=== PATIENT | female | born 1940 | race Caucasian/White ===

== ENCOUNTER 2019-01-14 05:56 | Day surgery (SDC) | payer MEDICARE, BC ==
[2019-01-14] MEDS ORDERED: DIPRIVAN 200 MG/20 ML IV ONE (05:57)
[2019-01-14] MEDS ORDERED: Lactated Ringers 1,000 ML IV SCH (06:30)
[2019-01-14 08:13] VITALS: O2SAT 98
[2019-01-14 08:29] VITALS: BP 115/69; PULSE 75
--- NOTE | 2019-01-14 09:25 | OP ---
SURGERY DATE/TIME: 01/14/2019 0702 PREOPERATIVE DIAGNOSIS: Screening colonoscopy. POSTOPERATIVE DIAGNOSIS: Normal colon. PROCEDURE: Colonoscopy. SURGEON: Levi Nunez M.D. ANESTHESIA: MAC. ESTIMATED BLOOD LOSS: None. SPECIMENS: None. DESCRIPTION OF PROCEDURE: After informed written consent was obtained, the patient was taken to the endoscopy suite. She underwent monitored anesthesia and digital rectal exam showed normal sphincter tone and no internal lesions. The scope was inserted into the rectum and sequentially the entire colonic mucosa was traversed. The level of cecum was reached and verified with direct visualization of ileocecal valve. There was some liquid stool present throughout some intermittent areas of the colon which was suctioned to aid in visualization. Upon withdrawal there were no obvious mucosal lesions. Prior to withdrawal retroflexion was performed and showed no internal lesions. The scope was removed and the patient was transferred to the recovery room in good condition.
== END 2019-01-14 08:40 | disposition home or self-care (01) ==
LOC: SDC 05:56
PROVIDERS: ATTEND Family Medicine
DX: Z12.11 Encounter for screening for malignant neoplasm of colon (principal)
CPT/HCPCS: 99100; J2704

== ENCOUNTER 2019-08-28 14:45 | Emergency (ER) | payer MEDICARE, BC ==
--- NOTE | 2019-08-28 15:06 | ERPHSYRPT ---
- History of Present Illness Time Seen by Provider: 08/28/19 14:45 Source: patient Exam Limitations: no limitations Physician History: patient says she felt dizzy and fell 2 days ago. She hit her head on the bedside and also hurting in the neck since then. She is also having tingling and numbness in the left arm. patient is on fentanyl and Lortab for chronic back pain. Patient went to urgent care for her her neck and arm pain. They sent her here for history of syncope 2 days ago. Witnessed: by family Prior Episodes: other (Denies) Timing/Duration: day(s) (2) Precipitating Factors: none, other (Pt is not eating and drinking much) Context: standing Loss of Consciousness: brief (seconds) Charcter of event(s): felt faint Allergies/Adverse Reactions: erythromycin base Allergy (Verified 08/28/19 15:33) esomeprazole [From Nexium] Allergy (Verified 08/28/19 15:33) etodolac [From Lodine] Allergy (Verified 08/28/19 15:33) oxaprozin [From Daypro] Allergy (Verified 08/28/19 15:33) oxycodone [From OxyContin] Allergy (Verified 08/28/19 15:33) rofecoxib [From Vioxx] Allergy (Verified 08/28/19 15:33) Sulfa (Sulfonamide Antibiotics) Allergy (Verified 08/28/19 15:33) Home Medications: Aspirin [Aspirin EC] 81 mg PO DAILY 12/07/16 [History] Fentanyl 50Mcg Patch [Duragesic 50MCG Patch] 50 mcg TOP Q3D 12/07/16 [ History] Hydrocodone/APAP 10/325 mg [[place] 10/325 MG Tablet] 1 tab PO QID PRN 12/07 [History] Omeprazole 20 MG [Prilosec 20 mg] 20 mg PO DAILY 12/07/16 [History] Pravastatin Sodium [Pravachol] 40 mg PO HS 12/07/16 [History] Duloxetine HCl 60 mg PO BID 01/01/19 [History] Multivitamin [Multivitamins] 1 each PO DAILY 01/01/19 [History] Lisinopril 20 mg PO DAILY 08/28/19 [History] - Past Medical History Pertinent Past Medical History: Yes Neurological History: Other (Syncope x 3) - Review of Systems Constitutional: Chills, Other, No Fever Eyes: No Symptoms Ears, Nose, & Throat: No Symptoms Respiratory: No Cough, No Dyspnea Cardiac: No Chest Pain, No Edema, No Syncope Abdominal/Gastrointestinal: No Abdominal Pain, No Nausea, No Vomiting, No Diarrhea Genitourinary Symptoms: No Dysuria Musculoskeletal: Other (Neck and left arm pain.), No Back Pain, No Neck Pain Skin: No Symptoms, No Rash Neurological: Dizziness, Other (Syncope), No Focal Weakness, No Sensory Changes Psychological: No Symptoms Endocrine: No Symptoms All Other Systems: Reviewed and Negative Physical Exam - Nursing Vital Signs Nursing Vital Signs: Initial Vital Signs Temperature 97.3 F 08/28/19 15:05 Pulse Rate 65 08/28/19 15:05 Respiratory Rate 16 08/28/19 15:05 Blood Pressure 146/79 08/28/19 15:05 O2 Sat by Pulse Oximetry 99 08/28/19 15:05 Pain Scale Pain Intensity 5 - Geovanna Coma Scale Best Eye Response (Anthony): (4) open spontaneously Best Verbal Response (Anthony): (5) oriented Best Motor Response (Anthony): (6) obeys commands Geovanna Total: 15 - Physical Exam General Appearance: no apparent distress, alert Eye Exam: bilateral eye: PERRL, EOMI Ears, Nose, Throat Exam: normal ENT inspection, pharynx normal, moist mucous membranes Neck Exam: normal inspection, non-tender, supple, full range of motion Respiratory: normal breath sounds, lungs clear, No chest tenderness, No respiratory distress Cardiovascular: regular rate/rhythm, capillary refill <2 sec, No murmur, No pulse deficit Gastrointestinal: soft, No tenderness, No distention, No mass Back Exam: normal inspection, normal range of motion, No CVA tenderness, No vertebral tenderness Extremity Exam: normal inspection, normal range of motion, pelvis stable, No calf tenderness, No tenderness Mental Status: alert, oriented x 3, cooperative supervisor shuttle preparation Exam: normal hearing, normal speech, PERRL, No abnormal eye position, No abnormal gag reflex, No abnormal pupil position, No abnormal speech, No facial asymmetry, No facial droop, No facial paresthesias, No facial weakness, No gaze palsy, No hearing deficit (R), No hearing deficit (L), No tongue deviation to R , No tongue deviation to L Coordination/Gait: normal finger to nose Motor/Sensory: no motor deficit, no sensory deficit, no pronator drift Skin Exam: normal color, warm, dry, No rash SpO2 Interpretation: normal O2 Delivery: Room Air - Course EKG Interpreted by Me: RATE (64), Sinus Rhythm, NORMAL AXIS, NORMAL INTERVALS, NORMAL QRS, Q-wave, Non-specific ST Changes - Radiology Exams Chest X-ray Interpretation: Interpreted by me, Negative - CT Exams Head CT Interpretation: Negative, Tele-radiologist Report Cervical Spine CT Interpretation: Negative, Tele-radiologist Report Ordered Tests: Active Orders 24 hr Category Date Time Status Head Stock Transfer Clerk STAT Care 08/28/19 15:40 Active EKG-ER Only STAT Care 08/28/19 15:39 Active IV Insertion STAT Care 08/28/19 15:39 Active NPO (ED) STAT Care 08/28/19 15:39 Active CERVICAL SPINE WO CONTRAST [CT] Stat Exams 08/28/19 15:40 Taken CHEST 1 VIEW (PORTABLE) Stat Exams 08/28/19 16:22 Taken HEAD WITHOUT CONTRAST [CT] Stat Exams 08/28/19 15:40 Taken CBC W DIFF Stat Lab 08/28/19 15:58 Completed CMP Stat Lab 08/28/19 15:58 Completed PROTIME WITH INR Stat Lab 08/28/19 15:58 Completed TROPONIN Stat Lab 08/28/19 15:58 Completed UA W/RFX UR CULTURE Stat Lab 08/28/19 16:14 Completed Lab/Rad Data: Laboratory Result Diagrams 08/28/19 15:58 08/28/19 15:58 Laboratory Results 08/28/19 08/28/19 08/28/19 Range/Units 16:14 15:58 15:58 WBC (4.0-10.5) K/mm3 RBC (4.1-5.4) M/mm3 Hgb (12.0-16.0) gm/dl Hct (35-47) % MCV (78-100) fl MCH (26-32) pg MCHC (32-36) g/dl RDW (11.5-14.0) % Plt Count (150-450) K/mm3 MPV (6-9.5) fl Gran % (36.0-66.0) % Eos # (Auto) (0-0.5) Absolute Lymphs (auto) (1.0-4.6) Absolute Monos (auto) (0.0-1.3) Lymphocytes % (24.0-44.0) % Monocytes % (0.0-12.0) % Eosinophils % (0.00-5.0) % Basophils % (0.0-0.4) % Absolute Granulocytes (1.4-6.9) Basophils # (0-0.4) PT 11.6 (9.95-12.35) SECONDS INR 1.03 (0.8-3.0) Sodium 139 (137-145) mmol/L Potassium 5.3 H (3.5-5.1) mmol/L Chloride 100 (98-107) mmol/L Carbon Dioxide 35 H (22-30) mmol/L Anion Gap 9.9 (5-15) MEQ/L BUN 27 H (7-17) mg/dL Creatinine 0.86 (0.52-1.04) mg/dL Estimated GFR > 60.0 ML/MIN Glucose 106 (74-106) mg/dL Calcium 9.6 (8.4-10.2) mg/dL Total Bilirubin 0.60 (0.2-1.3) mg/dL AST 34 (14-36) U/L ALT 20 (0-35) U/L Alkaline Phosphatase 97 (38-126) U/L Troponin I < 0.012 (0.000-0.034) ng/mL Serum Total Protein 7.4 (6.3-8.2) g/dL Albumin 4.2 (3.5-5.0) g/dL Urine Color YELLOW (YELLOW) Urine Appearance CLEAR (CLEAR) Urine pH 7.0 (5-6) Ur Specific [place] 1.010 (1.005-1.025) Urine Protein NEGATIVE (Negative) Urine Ketones NEGATIVE (NEGATIVE) Urine Blood NEGATIVE (0-5) [place]/ul Urine Nitrite NEGATIVE (NEGATIVE) Urine Bilirubin NEGATIVE (NEGATIVE) Urine Urobilinogen NEGATIVE (0-1) mg/dL Ur Leukocyte Esterase NEGATIVE (NEGATIVE) Urine WBC (Auto) NONE (0-5) /HPF Urine RBC (Auto) NONE (0-2) /HPF U Epithel Cells (Auto) NONE (FEW) /HPF Urine Bacteria (Auto) NONE (NEGATIVE) /HPF Urine Mucus (Auto) SLIGHT (NEGATIVE) /HPF Urine Culture Reflexed NO (NO) Urine Glucose NEGATIVE (NEGATIVE) mg/dL 08/28/19 Range/Units 15:58 WBC 5.8 (4.0-10.5) K/mm3 RBC 3.72 L (4.1-5.4) M/mm3 Hgb 10.8 L (12.0-16.0) gm/dl Hct 35.1 (35-47) % MCV 94.4 (78-100) fl MCH 29.0 (26-32) pg MCHC 30.8 L (32-36) g/dl RDW 14.0 (11.5-14.0) % Plt Count 294 (150-450) K/mm3 MPV 9.7 H (6-9.5) fl Gran % 50.4 (36.0-66.0) % Eos # (Auto) 0.23 (0-0.5) Absolute Lymphs (auto) 1.82 (1.0-4.6) Absolute Monos (auto) 0.78 (0.0-1.3) Lymphocytes % 31.6 (24.0-44.0) % Monocytes % 13.5 H (0.0-12.0) % Eosinophils % 4.0 (0.00-5.0) % Basophils % 0.5 (0.0-0.4) % Absolute Granulocytes 2.90 (1.4-6.9) Basophils # 0.03 (0-0.4) PT (9.95-12.35) SECONDS INR (0.8-3.0) Sodium (137-145) mmol/L Potassium (3.5-5.1) mmol/L Chloride (98-107) mmol/L Carbon Dioxide (22-30) mmol/L Anion Gap (5-15) MEQ/L BUN (7-17) mg/dL Creatinine (0.52-1.04) mg/dL Estimated GFR ML/MIN Glucose (74-106) mg/dL Calcium (8.4-10.2) mg/dL Total Bilirubin (0.2-1.3) mg/dL AST (14-36) U/L ALT (0-35) U/L Alkaline Phosphatase (38-126) U/L Troponin I (0.000-0.034) ng/mL Serum Total Protein (6.3-8.2) g/dL Albumin (3.5-5.0) g/dL Urine Color (YELLOW) Urine Appearance (CLEAR) Urine pH (5-6) Ur Specific [place] (1.005-1.025) Urine Protein (Negative) Urine Ketones (NEGATIVE) Urine Blood (0-5) [place]/ul Urine Nitrite (NEGATIVE) Urine Bilirubin (NEGATIVE) Urine Urobilinogen (0-1) mg/dL Ur Leukocyte Esterase (NEGATIVE) Urine WBC (Auto) (0-5) /HPF Urine RBC (Auto) (0-2) /HPF U Epithel Cells (Auto) (FEW) /HPF Urine Bacteria (Auto) (NEGATIVE) /HPF Urine Mucus (Auto) (NEGATIVE) /HPF Urine Culture Reflexed (NO) Urine Glucose (NEGATIVE) mg/dL - Progress Progress: improved Progress Note: 08/28/19 16:48 patient asymptomatic in the ER. Exam unremarkable. Workup negative. Discharge patient home to follow up with PCP. Counseled pt/family regarding: lab results, diagnosis, need for follow-up, rad results - Departure Departure Disposition: Home Clinical Impression: Cervicalgia Syncope Qualifiers: Syncope type: unspecified Qualified Code(s): R55 - Syncope and collapse Head contusion Qualifiers: Encounter type: initial encounter Contusion of head detail: other part of head Qualified Code(s): S00.83XA - Contusion of other part of head, initial encounter Condition: Good Critical Care Time: No Referrals: ROB NEGRO [Primary Care Provider] - 08/31/19 Instructions: Syncope (Fainting) (DC), Neck Pain Plan of Treatment: ccontinue home medications. Follow precautions. See PCP for further diagnosis and management. Return to the ER for an emergency, new symptoms or worsening
[2019-08-28 15:30] VITALS: PULSE 65; O2SAT 99
[2019-08-28 16:03] LABS: BASOPHIL % 0.5 % (0.0-0.4); Basophil (Absolute #) 0.03 (0-0.4); Eosinophil (Absolute #) 0.23 (0-0.5); Hematocrit 35.1 % (35-47); Hemoglobin 10.8 gm/dl (12.0-16.0); Lymphocyte (Absolute #) 1.82 (1.0-4.6); Lymphocytes % 31.6 % (24.0-44.0); Mean Cell Volume 94.4 fl (78-100); Mean Corpuscular Hgb Concent. 30.8 g/dl (32-36); Mean Platelet Volume 9.7 fl (6-9.5); Monocyte (Absolute #) 0.78 (0.0-1.3); Monocytes % 13.5 % (0.0-12.0); Neutrophil % 50.4 % (36.0-66.0); Platelet Count 294 K/mm3 (150-450); Red Blood Count 3.72 M/mm3 (4.1-5.4); White Blood Count 5.8 K/mm3 (4.0-10.5)
[2019-08-28 16:11] LABS: INR 1.03 (0.8-3.0); PROTIME 11.6 SECONDS (9.95-12.35)
[2019-08-28 16:17] LABS: Appearance CLEAR (CLEAR); Bilirubin NEGATIVE (NEGATIVE); Blood NEGATIVE Ery/ul (0-5); Glucose NEGATIVE (NEGATIVE); Ketones NEGATIVE (NEGATIVE); Leukocyte Esterase NEGATIVE (NEGATIVE); Mucus SLIGHT /HPF (NEGATIVE); Nitrite NEGATIVE (NEGATIVE); Protein,Urine Dip NEGATIVE (Negative); Urobilinogen NEGATIVE mg/dL (0-1)
[2019-08-28 16:28] LABS: ALBUMIN 4.2 g/dL (3.5-5.0); ALKALINE PHOSPHATASE 97 U/L (38-126); ANION GAP 9.9 MEQ/L (5-15); BLOOD UREA NITROGEN 27 mg/dL (7-17); CHLORIDE 100 mmol/L (98-107); Calcium 9.6 mg/dL (8.4-10.2); Carbon Dioxide 35 mmol/L (22-30); Creatinine 1 0.86 mg/dL (0.52-1.04); Glucose 106 mg/dL (74-106); Potassium 5.3 mmol/L (3.5-5.1); SGOT/AST 34 U/L (14-36); SGPT/ALT 20 U/L (0-35); SODIUM 139 mmol/L (137-145); Total Protein 7.4 g/dL (6.3-8.2)
[2019-08-28 16:30] LABS: TROPONIN < 0.012 ng/mL (0.000-0.034)
[2019-08-28 16:42] VITALS: BP 128/73
--- NOTE | 2019-08-28 19:41 | XRAY ---
Indication: Malaise. Comparison: None Portable chest clear with incidental tiny calcified granulomas. Heart is not enlarged. Bony thorax demonstrates mild osteopenia, degenerative changes, mild scoliosis, and spinal stimulator leads terminating T8 level. Impression: Nonacute chest with chronic features.
--- NOTE | 2019-08-28 19:42 | XRAY ---
Indication: Posterior head injury following fall. Multiple contiguous axial images obtained through the head without contrast. Comparison: None Age-appropriate global atrophy and minimal periventricular degenerative micro-ischemia bilaterally. No acute intracranial hemorrhage, abnormal extra-axial fluid collection, or mass effect. Fourth ventricle is midline without hydrocephalus. Bony calvarium intact. Visualized paranasal sinuses and mastoid air cells are clear. Impression: Nonacute senile brain. Comment: Preliminary interpretation was made by [facility]. No discrepancy.
--- NOTE | 2019-08-28 19:47 | XRAY ---
Indication: Posterior head injury following fall. Multiple contiguous axial images obtained through the cervical spine. Sagittal and coronal reformatted images obtained. Comparison: July 27, 2019. Stable osteopenia. Axial images again negative for acute fracture, suspicious bony lesions, or spinal canal stenosis. There remains mild/moderate multilevel degenerative endplate spurring as well as mild multilevel bilateral degenerative facet hypertrophy. Also stable atlantoaxial degenerative arthropathy. Sagittal and coronal reformatted images demonstrates multilevel disc space narrowing again greatest at the C5-C7 levels. Stable 2 - 3 mm C7 anterolisthesis on T1. No acute compression fracture or jumped facet. Normal-appearing craniocervical junction. Visualized noncontrasted soft tissues again demonstrates chronic calcifications left greater than right. Lung apices are clear. Impression: 1. Stable osteopenia and multilevel degenerative spondylosis including minimal grade 1 C7 spondylolisthesis. 2. Negative acute fracture or new subluxation. Comment: Preliminary interpretation was made by [facility]. No discrepancy.
== END 2019-08-28 17:10 | disposition home or self-care (01) ==
LOC: ED 14:45
DX: M54.2 Cervicalgia (principal); R55 Syncope and collapse; S00.83XA Contusion of other part of head, initial encounter; W18.30XA Fall on same level, unspecified, initial encounter; Y93.9 Activity, unspecified; R20.0 Anesthesia of skin; M79.602 Pain in left arm; Z79.899 Other long term (current) drug therapy; R42 Dizziness and giddiness
CPT/HCPCS: 36000; 36415; 70450; 71045; 72125; 80053; 81001; 84484; 85025; 85610; 93005; 93041; 99284

== ENCOUNTER 2020-10-19 06:09 | Day surgery (SDC) | payer MEDICARE ==
[2020-10-19] MEDS ORDERED: Lactated Ringers 1,000 ML IV SCH (06:30)
[2020-10-19] MEDS ORDERED: DIPRIVAN 200 MG/20 ML IV ONE (08:00)
[2020-10-19 09:06] VITALS: O2SAT 95
--- NOTE | 2020-10-19 09:51 | OP ---
SURGERY DATE/TIME: 10/19/2020 0807 PREOPERATIVE DIAGNOSIS: Epigastric abdominal pain. POSTOPERATIVE DIAGNOSIS: Normal exam. PROCEDURE: EGD. SURGEON: Levi Nunez M.D. ANESTHESIA: MAC by Miguel Angel Vasquez CRNA. ESTIMATED BLOOD LOSS: None. SPECIMENS: None. DESCRIPTION OF PROCEDURE: After informed written consent was obtained, the patient was taken to the endoscopy suite. Bite block was inserted and she was placed in the left lateral decubitus position. Anesthesia was titrated to desired level of consciousness. The endoscope was inserted in the posterior oropharynx. Under direct visualization the esophagus was easily traversed and had a normal mucosal appearance. The gastroesophageal junction likewise was normal free of any lesions or defects. Upon entry into the stomach there was a normal rugated gastric mucosa. No obvious mucosal abnormalities. Pylorus was traversed and the first and second portions of the duodenum had normal mucosal appearance. No ulcerations or mucosal abnormalities were appreciable. On withdrawal all mucosal structures were free of any defects or lesions. The scope was removed and the patient was transferred to the recovery room in good condition.
[2020-10-19 09:57] VITALS: BP 120/68; PULSE 68
== END 2020-10-19 10:00 | disposition home or self-care (01) ==
LOC: SDC 06:09
PROVIDERS: ATTEND Family Medicine
DX: R10.13 Epigastric pain (principal)
CPT/HCPCS: 99100; J2704

== ENCOUNTER 2023-10-24 12:03 | Emergency (ER) | payer MEDICARE ==
--- NOTE | 2023-10-24 12:44 | ERPHSYRPT ---
- History of Present Illness Time Seen by Provider: 10/24/23 12:22 Source: patient, family Patient Subjective Stated Complaint: Pt fell in her bedroom on carpet ciaran face first but her head was tucked and when she hit the floor she heard some cracking in her neck, pt states that she has moved her neck since then with pain Triage Nursing Assessment: Pt brought to the ER by her daughter, vitals wnl, rates neck pain as 7/10, pulses normal, skin n/w/d, pt does have a hump in the back of her neck which is normal, denies LOC, denies any other injuries, pt has bruising on her left arm which she states that was from a fall a couple of days ago Physician History: The patient fell again out of bed. She hit the back of her head and neck. She is not sure if she lost consciousness. Allergies/Adverse Reactions: erythromycin base Adverse Reaction (Verified 10/24/23 12:13) Nausea esomeprazole [From Nexium] Adverse Reaction (Verified 10/24/23 12:13) Nausea etodolac [From Lodine] Adverse Reaction (Verified 10/24/23 12:13) Nausea oxaprozin [From Daypro] Adverse Reaction (Verified 10/24/23 12:13) Nausea oxycodone [From OxyContin] Adverse Reaction (Verified 10/24/23 12:13) Nausea rofecoxib [From Vioxx] Adverse Reaction (Verified 10/24/23 12:13) Nausea Sulfa (Sulfonamide Antibiotics) Adverse Reaction (Verified 10/24/23 12:13) Nausea Home Medications: Aspirin [Aspirin EC] 81 mg PO DAILY 12/07/16 [History] Omeprazole 20 MG [Prilosec 20 mg] 20 mg PO DAILY 12/07/16 [History] Pravastatin Sodium [Pravachol] 40 mg PO HS 12/07/16 [History] Duloxetine HCl 60 mg PO BID 01/01/19 [History] Multivitamin [Multivitamins] 1 each PO DAILY 01/01/19 [History] lisinopriL [Lisinopril] 20 mg PO DAILY 08/28/19 [History] Potassium Chloride Tab* [Klor Con] 10 meq PO DAILY 09/27/20 [History] Hx Tetanus, Diphtheria Vaccination/Date Given: Yes Hx Influenza Vaccination/Date Given: No Hx Pneumococcal Vaccination/Date Given: Yes Travel Risk - International Travel Have you traveled outside of the country in past 3 weeks: No - Coronavirus Screening Are you exhibiting any of the following symptoms?: No Close contact with a COVID-19 positive Pt in past 14-21 Days: No - Vaccine Status Have you recieved a Covid-19 vaccination: No - Review of Systems Constitutional: No Fever, No Chills Eyes: No Symptoms Ears, Nose, & Throat: No Symptoms Respiratory: No Cough, No Dyspnea Cardiac: No Chest Pain, No Edema, No Syncope Abdominal/Gastrointestinal: No Abdominal Pain, No Nausea, No Vomiting, No Diarrhea Genitourinary Symptoms: No Dysuria Musculoskeletal: Neck Pain, No Back Pain Skin: No Rash Neurological: No Dizziness, No Focal Weakness, No Sensory Changes Psychological: No Symptoms Endocrine: No Symptoms All Other Systems: Reviewed and Negative - Past Medical History Pertinent Past Medical History: Yes Neurological History: Other ENT History: No Pertinent History Cardiac History: High Cholesterol, Hypertension Respiratory History: No Pertinent History Endocrine Medical History: No Pertinent History Musculoskeletal History: Arthritis GI Medical History: No Pertinent History History: No Pertinent History Psycho-Social History: No Pertinent History Female Reproductive Disorders: No Pertinent History - Past Surgical History Past Surgical History: Yes Neuro Surgical History: No Pertinent History Cardiac: No Pertinent History Respiratory: No Pertinent History Gastrointestinal: No Pertinent History Genitourinary: No Pertinent History Musculoskeletal: Orthopedic Surgery, Other Female Surgical History: Hysterectomy, Section Other Surgical History: Carpal tunnel, L knee, stimulator in back, several back surgeries, right foot times 2, pain pump with dilaudid,colonoscopy - Social History Smoking Status: Never smoker Exposure to second hand smoke: No Drug Use: none Patient Lives Alone: No (lives with ) - Nursing Vital Signs Nursing Vital Signs: Initial Vital Signs Pulse Rate 83 10/24/23 12:04 Respiratory Rate 24 10/24/23 12:04 Blood Pressure 136/66 10/24/23 12:04 O2 Sat by Pulse Oximetry 99 10/24/23 12:04 Pain Scale Pain Intensity 7 - [place] Coma Score Best Eye Response ([place]): (4) open spontaneously Best Verbal Response ([place]): (5) oriented Best Motor Response ([place]): (6) obeys commands [place] Total: 15 - Physical Exam General Appearance: no apparent distress, alert Head Injury: no evidence of injury Eye Exam: PERRL/EOMI ENT Exam: airway nml Neck Exam: normal inspection, tenderness, mid-line tenderness, other Respiratory/Chest Exam: normal breath sounds, No chest tenderness, No respiratory distress Cardiovascular Exam: normal heart sounds, regular rate/rhythm Gastrointestinal Exam: soft, No tenderness, No distention, No guarding, No ecchymosis Back Exam: normal inspection, No vertebral tenderness Extremity Exam: normal inspection, normal range of motion, pelvis stable, No deformities Neurologic Exam: alert, oriented x 3, cooperative, sensation nml, No motor deficits Skin Exam: normal color, warm, dry SpO2 Interpretation: normal SpO2: 99 O2 Delivery: Room Air Comment: Patient has some posterior neck pain and palpation. There is no step-off or deformity. No neurologic deficit. No signs of significant head injury. There is no injury to the pelvis chest wall upper or lower extremities. - Course Nursing assessment & vital signs reviewed: Yes Ordered Tests: Active Orders 24 hr Category Date Time Status CERVICAL SPINE WO CONTRAST [CT] Stat Exams 10/24/23 12:23 Completed HEAD WITHOUT CONTRAST [CT] Stat Exams 10/24/23 12:23 Completed Lab/Rad Data: Procedures: [id number] CT/HEAD WITHOUT CONTRAST Indication: Posterior head injury following fall. Multiple contiguous axial images obtained through the head without contrast. Comparison: June 23, 2023 Again age-appropriate global atrophy, minimal periventricular degenerative micro-ischemia bilaterally, and remote lacunar infarct right basal ganglia. No acute intracranial hemorrhage, abnormal extra-axial fluid collection, or mass effect. Fourth ventricle is midline without hydrocephalus. Bony calvarium intact. Visualized paranasal sinuses and mastoid air cells are clear. 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 Reported by: DWAIN GARLAND DO Signed by: DWAIN GARLAND DO Signed date/time: 10/24/23 1317 Copies to: CHARLES RUDD CHAD Procedures: [id number] CT/CERVICAL SPINE WO CONTRAST Indication: Posterior head injury following fall. Multiple contiguous axial images obtained through the cervical spine. Sagittal and coronal reformatted images obtained. Comparison: June 23, 2023 Osseous structures remain demineralized. Axial images negative for acute fracture, suspicious bony lesions, or spinal canal stenosis. There remains moderate C5-C7 and T1-T2 degenerative endplate spurring. Stable moderate atlantoaxial degenerative changes and mild multilevel bilateral degenerative facet hypertrophy. Sagittal and coronal reformatted images again demonstrates lordotic straightening, partial fusion C3-C5 segments, and 2 mm anterolisthesis C7 on T1. Also stable C3-C7 and T1-T2 disc space loss. No acute compression fracture or jumped facet. Normal appearing craniocervical junction. Visualized noncontrasted soft tissues again demonstrates moderate left and mild right carotid calcifications. Lung apices unremarkable. Impression: Again chronic findings including osteopenia, lordotic straightening, multilevel cervical thoracic degenerative spondylosis, minimal C7 grade 1 listhesis, C3-C5 fusion, and bilateral carotid calcifications. No new/acute findings. Reported by: DWAIN GARLAND DO Signed by: DWAIN GARLAND DO Signed date/time: 10/24/23 1323 Copies to: - Progress Progress Note: 10/24/23 12:43 The patient will have a CT of the head and C-spine due to age and symptoms. The patient is having some C-spine tenderness on palpation. No neurologic deficit. Low mechanism of injury. The patient's not on any blood thinners per report My plan is to have the patient scanned and most likely discharged home. 10/24/23 13:22 Procedures: [id number] CT/HEAD WITHOUT CONTRAST Indication: Posterior head injury following fall. Multiple contiguous axial images obtained through the head without contrast. Comparison: June 23, 2023 Again age-appropriate global atrophy, minimal periventricular degenerative micro-ischemia bilaterally, and remote lacunar infarct right basal ganglia. No acute intracranial hemorrhage, abnormal extra-axial fluid collection, or mass effect. Fourth ventricle is midline without hydrocephalus. Bony calvarium intact. Visualized paranasal sinuses and mastoid air cells are clear. 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 Reported by: DWAIN GARLAND DO Signed by: DWAIN GARLAND DO Signed date/time: 10/24/23 1317 Copies to: CHARLES RUDD CHAD 10/24/23 13:31 Procedures: [id number] CT/CERVICAL SPINE WO CONTRAST Indication: Posterior head injury following fall. Multiple contiguous axial images obtained through the cervical spine. Sagittal and coronal reformatted images obtained. Comparison: June 23, 2023 Osseous structures remain demineralized. Axial images negative for acute fracture, suspicious bony lesions, or spinal canal stenosis. There remains moderate C5-C7 and T1-T2 degenerative endplate spurring. Stable moderate atlantoaxial degenerative changes and mild multilevel bilateral degenerative facet hypertrophy. Sagittal and coronal reformatted images again demonstrates lordotic straightening, partial fusion C3-C5 segments, and 2 mm anterolisthesis C7 on T1. Also stable C3-C7 and T1-T2 disc space loss. No acute compression fracture or jumped facet. Normal appearing craniocervical junction. Visualized noncontrasted soft tissues again demonstrates moderate left and mild right carotid calcifications. Lung apices unremarkable. Impression: Again chronic findings including osteopenia, lordotic straightening, multilevel cervical thoracic degenerative spondylosis, minimal C7 grade 1 listhesis, C3-C5 fusion, and bilateral carotid calcifications. No new/acute findings. Reported by: DWAIN GARLAND DO Signed by: DWAIN GARLAND DO Signed date/time: 10/24/23 1323 Copies to: CTs do not show any acute injury. The patient is stable for release. - Departure Clinical Impression: Head contusion, Fall, Strain, cervical, Neck pain Condition: Good Critical Care Time: No Referrals: CHARLES RUDD MD [Primary Care Provider] - Follow up/PCP as directed Instructions: Contusion (DC), Preventing falls in adults, Cervical Muscle Strain (DC), Neck Sprain (DC), Generalized Neck Pain Additional Instructions: Follow-up with your primary care doctor. Return for worsening symptoms.
--- NOTE | 2023-10-24 13:17 | XRAY ---
Indication: Posterior head injury following fall. Multiple contiguous axial images obtained through the head without contrast. Comparison: June 23, 2023 Again age-appropriate global atrophy, minimal periventricular degenerative micro-ischemia bilaterally, and remote lacunar infarct right basal ganglia. No acute intracranial hemorrhage, abnormal extra-axial fluid collection, or mass effect. Fourth ventricle is midline without hydrocephalus. Bony calvarium intact. Visualized paranasal sinuses and mastoid air cells are clear. 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
--- NOTE | 2023-10-24 13:23 | XRAY ---
Indication: Posterior head injury following fall. Multiple contiguous axial images obtained through the cervical spine. Sagittal and coronal reformatted images obtained. Comparison: June 23, 2023 Osseous structures remain demineralized. Axial images negative for acute fracture, suspicious bony lesions, or spinal canal stenosis. There remains moderate C5-C7 and T1-T2 degenerative endplate spurring. Stable moderate atlantoaxial degenerative changes and mild multilevel bilateral degenerative facet hypertrophy. Sagittal and coronal reformatted images again demonstrates lordotic straightening, partial fusion C3-C5 segments, and 2 mm anterolisthesis C7 on T1. Also stable C3-C7 and T1-T2 disc space loss. No acute compression fracture or jumped facet. Normal appearing craniocervical junction. Visualized noncontrasted soft tissues again demonstrates moderate left and mild right carotid calcifications. Lung apices unremarkable. Impression: Again chronic findings including osteopenia, lordotic straightening, multilevel cervical thoracic degenerative spondylosis, minimal C7 grade 1 listhesis, C3-C5 fusion, and bilateral carotid calcifications. No new/acute findings.
[2023-10-24 13:45] VITALS: BP 118/56; PULSE 84; RESP 13
[2023-10-24 13:52] VITALS: O2SAT 99
== END 2023-10-24 14:10 | disposition home or self-care (01) ==
LOC: ED 12:03
DX: S16.1XXA Strain of muscle, fascia and tendon at neck level, initial encounter (principal); S00.93XA Contusion of unspecified part of head, initial encounter; W06.XXXA Fall from bed, initial encounter; Y92.003 Bedroom of unspecified non-institutional (private) residence as the place of occurrence of the external cause; M54.2 Cervicalgia; E78.5 Hyperlipidemia, unspecified; I10 Essential (primary) hypertension; Z79.899 Other long term (current) drug therapy
CPT/HCPCS: 70450; 72125; 99282

== ENCOUNTER 2023-10-29 10:58 | Observation (INO) | payer MEDICARE ==
--- NOTE | 2023-10-29 11:37 | ERPHSYRPT ---
- History of Present Illness Time Seen by Provider: 10/29/23 11:10 Source: patient Exam Limitations: no limitations Patient Subjective Stated Complaint: C/O intermittent chest pain since Saturday that has become constant this am. Denies SOB, N/V. Triage Nursing Assessment: Patient ambulated back to ER with a cane; she refused the assistance of a w/c. Patient drove self to ER today. She is alert and oriented. No cough. No SOB. Edema is present to BLE; patient states this is abnormal for her. EMILIANO WELSH. Physician History: 82-year-old female presents to our ED as a referral from [facility] for evaluation of chest pain. Patient complains of left-sided chest pain radiating to her left shoulder. Symptoms started approximately 3 to 5 days ago. Symptoms are progressive. Symptoms are mild to moderate in intensity. No specific worsening or improving factors. Patient voices no other complaints or concerns at this time. Portions of this note were created with voice recognition technology. There may be grammatical, spelling, punctuation or sound alike errors Timing/Duration: day(s) (3 to 5 days) Severity: moderate Modifying Factors: Improves With: nothing Associated Symptoms: denies symptoms Allergies/Adverse Reactions: erythromycin base Adverse Reaction (Verified 10/29/23 11:03) Nausea esomeprazole [From Nexium] Adverse Reaction (Verified 10/29/23 11:03) Nausea etodolac [From Lodine] Adverse Reaction (Verified 10/29/23 11:03) Nausea oxaprozin [From Daypro] Adverse Reaction (Verified 10/29/23 11:03) Nausea oxycodone [From OxyContin] Adverse Reaction (Verified 10/29/23 11:03) Nausea rofecoxib [From Vioxx] Adverse Reaction (Verified 10/29/23 11:03) Nausea Sulfa (Sulfonamide Antibiotics) Adverse Reaction (Verified 10/29/23 11:03) Nausea Home Medications: Aspirin [Aspirin EC] 81 mg PO DAILY 12/07/16 [History] Omeprazole 20 MG [Prilosec 20 mg] 20 mg PO DAILY 12/07/16 [History] Pravastatin Sodium [Pravachol] 40 mg PO HS 12/07/16 [History] Duloxetine HCl 120 mg PO DAILY 01/01/19 [History] Multivitamin [Multivitamins] 1 each PO DAILY 01/01/19 [History] lisinopriL [Lisinopril] 20 mg PO DAILY 08/28/19 [History] Potassium Chloride Tab* [Klor Con] 10 meq PO DAILY 09/27/20 [History] Furosemide 40 mg [Lasix 40 MG] 1 tab PO DAILY 10/29/23 [History] Hx Tetanus, Diphtheria Vaccination/Date Given: Yes Hx Influenza Vaccination/Date Given: Yes Hx Pneumococcal Vaccination/Date Given: Yes Immunizations Up to Date: Yes Travel Risk - International Travel Have you traveled outside of the country in past 3 weeks: No - Coronavirus Screening Are you exhibiting any of the following symptoms?: No Close contact with a COVID-19 positive Pt in past 14-21 Days: No - Vaccine Status Have you recieved a Covid-19 vaccination: No - Review of Systems Constitutional: No Symptoms, No Fever, No Chills Eyes: No Symptoms Ears, Nose, & Throat: No Symptoms Respiratory: No Symptoms, No Cough, No Dyspnea Cardiac: No Symptoms, No Chest Pain, No Edema, No Syncope Abdominal/Gastrointestinal: No Symptoms, No Abdominal Pain, No Nausea, No Vomiting, No Diarrhea Genitourinary Symptoms: No Symptoms, No Dysuria Musculoskeletal: No Symptoms, No Back Pain, No Neck Pain Skin: No Symptoms, No Rash Neurological: No Symptoms, No Dizziness, No Focal Weakness, No Sensory Changes Psychological: No Symptoms Endocrine: No Symptoms Hematologic/Lymphatic: No Symptoms Immunological/Allergic: No Symptoms All Other Systems: Reviewed and Negative - Past Medical History Pertinent Past Medical History: Yes Neurological History: Other ENT History: No Pertinent History Cardiac History: High Cholesterol, Hypertension Respiratory History: No Pertinent History Endocrine Medical History: No Pertinent History Musculoskeletal History: Arthritis GI Medical History: No Pertinent History History: No Pertinent History Psycho-Social History: No Pertinent History Female Reproductive Disorders: No Pertinent History - Past Surgical History Past Surgical History: Yes Neuro Surgical History: No Pertinent History Cardiac: No Pertinent History Respiratory: No Pertinent History Gastrointestinal: No Pertinent History Genitourinary: No Pertinent History Musculoskeletal: Orthopedic Surgery, Other Female Surgical History: Hysterectomy, Section Other Surgical History: Carpal tunnel, L knee, stimulator in back, several back surgeries, right foot times 2, pain pump with dilaudid,colonoscopy - Social History Smoking Status: Never smoker Exposure to second hand smoke: No Drug Use: none Patient Lives Alone: No (lives with ) - Nursing Vital Signs Nursing Vital Signs: Initial Vital Signs Pulse Rate 88 10/29/23 11:00 Respiratory Rate 18 10/29/23 11:00 Blood Pressure 107/57 10/29/23 11:00 O2 Sat by Pulse Oximetry 68 L 10/29/23 11:00 Pain Scale Pain Intensity 4 - Physical Exam General Appearance: no apparent distress, alert Eye Exam: PERRL/EOMI, eyes nml inspection Ears, Nose, Throat Exam: normal ENT inspection, TMs normal, pharynx normal, moist mucous membranes Neck Exam: normal inspection, non-tender, supple, full range of motion Respiratory Exam: normal breath sounds, lungs clear, No respiratory distress Cardiovascular Exam: regular rate/rhythm, normal heart sounds, normal peripheral pulses Gastrointestinal/Abdomen Exam: soft, normal bowel sounds, No tenderness, No mass Back Exam: normal inspection, normal range of motion, No CVA tenderness, No vertebral tenderness Extremity Exam: normal inspection, normal range of motion, pelvis stable, pedal edema (Bilateral lower extremity pitting edema) Neurologic Exam: alert, oriented x 3, cooperative, normal mood/affect, nml cerebellar function, nml station & gait, sensation nml, No motor deficits Skin Exam: normal color, warm, dry, No rash Lymphatic Exam: No adenopathy SpO2 Interpretation: normal SpO2: 92 O2 Delivery: Room Air - Course Nursing assessment & vital signs reviewed: Yes EKG Interpreted by Me: RATE ([id number]), Sinus Rhythm, NORMAL AXIS, NORMAL INTERVALS Ordered Tests: Active Orders 24 hr Category Date Time Status Lapel Stitcher STAT Care 10/29/23 11:38 Active EKG-ER Only STAT Care 10/29/23 11:38 Active IV Insertion STAT Care 10/29/23 11:38 Active Pulse Oximetry (ED) STAT Care 10/29/23 11:38 Active CHEST 1 VIEW (PORTABLE) Stat Exams 10/29/23 11:39 Completed CBC W DIFF Stat Lab 10/29/23 11:50 Completed CMP Stat Lab 10/29/23 11:50 Completed NT PRO BNPII Stat Lab 10/29/23 11:45 Completed TROPONIN Q4H Lab 10/29/23 11:50 Completed TROPONIN Q4H Lab 10/29/23 15:58 Completed TROPONIN Q4H Lab 10/29/23 19:45 Ordered Transfer Order Routine Transfer 10/29/23 Ordered Medication Summary Discontinued Medications Generic Name Dose Route Start Last Admin Trade Name Destiny PRN Reason Stop Dose Admin Sodium Chloride 1,000 mls @ 999 mls/hr 10/29/23 13:46 10/29/23 13:52 Sodium Chloride 0.9% 1000 Ml IV 10/29/23 14:46 Not Given .Q1H1M STA Lab/Rad Data: Laboratory Result Diagrams 10/29/23 11:50 10/29/23 11:50 Laboratory Results 10/29/23 10/29/23 10/29/23 Range/Units 15:58 11:50 11:50 WBC (4.0-10.5) x10^3/uL RBC (4.1-5.4) x10^6/uL Hgb (12.0-16.0) g/dL Hct (35-47) % MCV (78-100) fL MCH (26-32) pg MCHC (32-36) g/dL RDW (11.5-14.0) % Plt Count (150-450) x10^3/uL MPV (7.5-11.0) fL Gran % (36.0-66.0) % Immature Gran % (Auto) (0.00-0.4) % Nucleat RBC Rel Count (0.00-0.1) % Eos # (Auto) (0-0.5) x10^3/uL Immature Gran # (Auto) (0.00-0.03) x10^3u/L Absolute Lymphs (auto) (1.0-4.6) x10^3/uL Absolute Monos (auto) (0.0-1.3) x10^3/uL Absolute Nucleated RBC (0.00-0.01) x10^3u/L Lymphocytes % (24.0-44.0) % Monocytes % (0.0-12.0) % Eosinophils % (0.00-5.0) % Basophils % (0.0-0.4) % Absolute Granulocytes (1.4-6.9) x10^3/uL Basophils # (0-0.4) x10^3/uL Sodium 136 L (137-145) mmol/L Potassium 3.9 (3.5-5.1) mmol/L Chloride 99 (98-107) mmol/L Carbon Dioxide 30 (22-30) mmol/L Anion Gap 10.2 (5-15) MEQ/L BUN 32 H (7-17) mg/dL Creatinine 1.84 H (0.52-1.04) mg/dL Estimated GFR 27.4 ML/MIN Glucose 106 (74-106) mg/dL Calcium 9.2 (8.4-10.2) mg/dL Total Bilirubin 0.50 (0.2-1.3) mg/dL AST 30 (14-36) U/L ALT 24 (0-35) U/L Alkaline Phosphatase 98 (38-126) U/L Troponin I < 0.012 < 0.012 (0.000-0.034) ng/mL NT-Pro-B Natriuret Pep (<300) pg/mL Serum Total Protein 6.5 (6.3-8.2) g/dL Albumin 3.8 (3.5-5.0) g/dL 10/29/23 10/29/23 Range/Units 11:50 11:45 WBC 5.3 (4.0-10.5) x10^3/uL RBC 3.15 L (4.1-5.4) x10^6/uL Hgb 9.1 L (12.0-16.0) g/dL Hct 29.4 L (35-47) % MCV 93.3 (78-100) fL MCH 28.9 (26-32) pg MCHC 31.0 L (32-36) g/dL RDW 13.6 (11.5-14.0) % Plt Count 261 (150-450) x10^3/uL MPV 9.6 (7.5-11.0) fL Gran % 59.5 (36.0-66.0) % Immature Gran % (Auto) 0.2 (0.00-0.4) % Nucleat RBC Rel Count 0.0 (0.00-0.1) % Eos # (Auto) 0.10 (0-0.5) x10^3/uL Immature Gran # (Auto) 0.01 (0.00-0.03) x10^3u/L Absolute Lymphs (auto) 1.42 (1.0-4.6) x10^3/uL Absolute Monos (auto) 0.60 (0.0-1.3) x10^3/uL Absolute Nucleated RBC 0.00 (0.00-0.01) x10^3u/L Lymphocytes % 26.7 (24.0-44.0) % Monocytes % 11.3 (0.0-12.0) % Eosinophils % 1.9 (0.00-5.0) % Basophils % 0.4 (0.0-0.4) % Absolute Granulocytes 3.16 (1.4-6.9) x10^3/uL Basophils # 0.02 (0-0.4) x10^3/uL Sodium (137-145) mmol/L Potassium (3.5-5.1) mmol/L Chloride (98-107) mmol/L Carbon Dioxide (22-30) mmol/L Anion Gap (5-15) MEQ/L BUN (7-17) mg/dL Creatinine (0.52-1.04) mg/dL Estimated GFR ML/MIN Glucose (74-106) mg/dL Calcium (8.4-10.2) mg/dL Total Bilirubin (0.2-1.3) mg/dL AST (14-36) U/L ALT (0-35) U/L Alkaline Phosphatase (38-126) U/L Troponin I (0.000-0.034) ng/mL NT-Pro-B Natriuret Pep 221 (<300) pg/mL Serum Total Protein (6.3-8.2) g/dL Albumin (3.5-5.0) g/dL - Progress Progress: improved Progress Note: 10-year-old female presents to emergency department for evaluation of left-sided chest pain. Pain radiates to her left neck. Patient denies history of the same. Symptoms are progressively worsening. Physical exam essentially nonremarkable. Workup reveals a creatinine of 1.84 which is a new finding. No history of volume loss to explain the change in kidney function. Additionally patient has a hemoglobin of 9.1. No recent hemoglobin to compare this to. No active chest pain at this time. Symptoms are mild to moderate in intensity. No specific worsening improving factors. Will admit patient for further panchito luation and treatment. Case discussed with hospitalist Dr. May at 5:04 PM. He accepts admission Plan of care discussed with patient. She agrees to admission at [facility] for further evaluation and treatment. Portions of this note were created with voice recognition technology. There may be grammatical, spelling, punctuation or sound alike errors Complexity problem addressed is moderate acute complicated No critical care time Complex of data reviewed and analyzed is extensive. Test ordered test reviewed from results analyzed and correlated clinically with history and physical examination. Management discussed with hospitalist who accepts admission to [facility]. Risk of complication and or risk of morbidity/mortality of patient management is high. Patient requires hospitalization for further evaluation and treatment. Portions of this note were created with voice recognition technology. There may be grammatical, spelling, punctuation or sound alike errors Vital stable. Time spent admit patient is approximately 15 minutes. Plan of care established for shared decision making. No social determinants of health present impede follow-up. Portions of this note were created with voice recognition technology. There may be grammatical, spelling, punctuation or sound alike error 10/29/23 17:08 Counseled pt/family regarding: lab results, diagnosis - Departure Departure Disposition: Observation Clinical Impression: Bilateral lower extremity pitting edema, Chest pain, Acute coronary syndrome, Acute renal injury Condition: Stable Critical Care Time: No Referrals: CHARLES RUDD MD [Primary Care Provider] - Follow up/PCP as directed Additional Instructions: Discharge/Care Plan MUSA KONG was seen on 10/29/23 in the Emergency Room. The patient was counseled regarding Diagnosis,Lab results, Imaging studies, need for follow up and when to return to the Emergency Room. Prescriptions given: Discharge Note I have spoken with the patient and/or caregivers. I have explained the patient's condition, diagnosis and treatment plan based on the information available to me at this time. I have answered the patient's and/or caregiver's questions and addressed any concerns. The patient and/or caregivers have as good understanding of the patient's diagnosis, condition and treatment plan as can be expected at this point. The vital signs have been stable. The patient's condition is stable and appropriate for discharge from the emergency department. The patient will pursue further outpatient evaluation with the primary care physician or other designated or consulting physician as outlined in the discharge instructions. The patient and/or caregivers are agreeable to this plan of care and follow-up instructions have been explained in detail. The patient and/or caregivers have received these instruction. The patient/and or caregivers are aware that any significant change in condition or worsening of symptoms should prompt an immediate return to this or the closest emergency department or call 911.
[2023-10-29 11:57] LABS: Absolute Neutrophil Ct (ANC) 3.16 x10^3/uL (1.4-6.9); BASOPHIL % 0.4 % (0.0-0.4); Basophil (Absolute #) 0.02 x10^3/uL (0-0.4); Eosinophil % 1.9 % (0.00-5.0); Hematocrit 29.4 % (35-47); Hemoglobin 9.1 g/dL (12.0-16.0); IMMATURE GRAN # 0.01 x10^3u/L (0.00-0.03); IMMATURE GRAN % 0.2 % (0.00-0.4); Lymphocyte (Absolute #) 1.42 x10^3/uL (1.0-4.6); Lymphocytes % 26.7 % (24.0-44.0); Mean Cell Volume 93.3 fL (78-100); Mean Corpuscular Hemoglobin 28.9 pg (26-32); Mean Platelet Volume 9.6 fL (7.5-11.0); Monocytes % 11.3 % (0.0-12.0); Neutrophil % 59.5 % (36.0-66.0); Platelet Count 261 x10^3/uL (150-450); Red Blood Count 3.15 x10^6/uL (4.1-5.4); Red Cell Distribution Width 13.6 % (11.5-14.0); White Blood Count 5.3 x10^3/uL (4.0-10.5)
[2023-10-29 12:09] LABS: ALBUMIN 3.8 g/dL (3.5-5.0); ANION GAP 10.2 MEQ/L (5-15); BILIRUBIN,TOTAL 0.5 mg/dL (0.2-1.3); Calcium 9.2 mg/dL (8.4-10.2); Creatinine 1 1.84 mg/dL (0.52-1.04); EST GLOMERULAR FILTRATION RATE 27.4 ML/MIN; Potassium 3.9 mmol/L (3.5-5.1); Total Protein 6.5 g/dL (6.3-8.2)
--- NOTE | 2023-10-29 12:18 | XRAY ---
Indication: Pain. Comparison: August 28, 2019 Portable chest demonstrates new right base discoid atelectasis/scarring. Remaining heart and lungs unremarkable again with incidental focal right base calcified pleural plaquing. Bony thorax intact again with osteopenia, degenerative changes, and dextroscoliosis. Impression: Nonacute chest with chronic features.
[2023-10-29] MEDS ORDERED: Sodium Chloride 0.9% 1000 ML 1,000 ML IV STA (13:46)
--- NOTE | 2023-10-29 18:25 | PCM.HP ---
History of Present Illness - Chief Complaint Chief Complaint: ACS, Chest pain CAROLINE Date: 10/29/23 History of Present Illness: is a 82 year old female with a pmhx of HLD and HTN presented to the ED 10/29/23 with complaints of neck, base of skull, and chest pain. Patient states she was in her usual state of health until last when she rolled out of bed onto the floor. She reports hearing a "crunching" sound when she hit the floor. She did present to the ED at [facility] after that episode and was evaluated. CT imaging of her head and cervical spine were negative for any acute findings. The pain that was initially intermittent following the fall has now become constant. She describes the pain in her chest as midsternal, dull/aching in characteristic with radiation to her left arm and neck. She rates the pain 7/10 on a numerical pain scale. She does have associated shortness of breath. She has had previous orthopedic surgery and has an implanted pain pump with diluadid and simulator. She is not able to have an MRI. Upon presentation, vitals unremarkable. EKG NS with no acute ischemia, ST elevations/ deviations. Trops x 2 WNL. CXR with no acute cardiopulmonary processes. Lab findings remarkable for STANISLAV with creat at 1.84 (baseline around 1.1), and normocytic, normochromic anemia with hgb at 9.1, most likely secondary to her CKD. Patient given IVF bolus in ED. Will admit patient for observation of chest pain and STANISLAV. - Review of Systems Constitutional: No Symptoms Eyes: No Symptoms Ears, Nose, & Throat: No Symptoms Respiratory: Short Of Breath Cardiac: Chest Pain Abdominal/Gastrointestinal: No Symptoms Genitourinary Symptoms: No Symptoms Musculoskeletal: Back Pain, Neck Pain, Joint Pain Skin: No Symptoms Neurological: No Symptoms Psychological: No Symptoms Endocrine: No Symptoms Hematologic/Lymphatic: Anemia Immunological/Allergic: No Symptoms Medications & Allergies Home Medications: Home Medication List Aspirin [Aspirin EC] 81 mg PO HS 12/07/16 [History Confirmed 10/29/23] Omeprazole 20 MG [Prilosec 20 mg] 20 mg PO DAILY 12/07/16 [History Confirmed 10/29/23] Pravastatin Sodium [Pravachol] 40 mg PO HS 12/07/16 [History Confirmed 10/29/23] Duloxetine HCl 60 mg PO BID 01/01/19 [History Confirmed 10/29/23] Multivitamin [Multivitamins] 1 each PO DAILY 01/01/19 [History Confirmed 10/29/23] lisinopriL [Lisinopril] 20 mg PO DAILY 08/28/19 [History Confirmed 10/29/23] Potassium Chloride Tab* [Klor Con] 10 meq PO DAILY 09/27/20 [History Confirmed 10/29/23] Furosemide 40 mg [Lasix 40 MG] 1 tab PO DAILY 10/29/23 [History Confirmed 10/29/23] Allergies/Adverse Reactions: Allergies Allergy/AdvReac Type Severity Reaction Status Date / Time erythromycin base AdvReac Nausea Verified 10/29/23 11:03 esomeprazole [From Nexium] AdvReac Nausea Verified 10/29/23 11:03 etodolac [From Lodine] AdvReac Nausea Verified 10/29/23 11:03 oxaprozin [From Daypro] AdvReac Nausea Verified 10/29/23 11:03 oxycodone [From OxyContin] AdvReac Nausea Verified 10/29/23 11:03 rofecoxib [From Vioxx] AdvReac Nausea Verified 10/29/23 11:03 Sulfa (Sulfonamide AdvReac Nausea Verified 10/29/23 11:03 Antibiotics) - Past Medical History Past Medical History: Yes Neurological History: Other ENT History: No Pertinent History Cardiac History: High Cholesterol, Hypertension Respiratory History: No Pertinent History Endocrine Medical History: No Pertinent History Musculoskelatal History: Arthritis GI Medical History: No Pertinent History History: No Pertinent History Pyscho-Social History: No Pertinent History Reproductive Disorders: No Pertinent History - Past Surgical History Past Surgical History: Yes Neuro Surgical History: No Pertinent History Cardiac History: No Pertinent History Respiratory Surgery: No Pertinent History GI Surgical History: No Pertinent History Genitourinary Surgical Hx: No Pertinent History Musculskeletal Surgical Hx: Orthopedic Surgery, Other Female Surgical History: Hysterectomy, Section Other Surgical History: Carpal tunnel, L knee, stimulator in back, several back surgeries, right foot times 2, pain pump with dilaudid,colonoscopy - Social History Smoking Status: Never smoker Exposure to second hand smoke: No Alcohol: None Drug Use: none - Physical Exam Vital Signs: Vital Signs - 24 hr Temp Pulse Resp BP BP Pulse Ox 10/29/23 17:12 92 L 10/29/23 17:00 70 13 119/70 97 10/29/23 16:30 72 12 115/61 100 10/29/23 16:00 69 19 103/74 99 10/29/23 15:30 84 110/54 99 10/29/23 15:00 77 19 113/62 94 L 10/29/23 14:30 78 15 109/56 10/29/23 14:00 71 15 123/58 10/29/23 13:30 77 25 H 112/53 95 10/29/23 13:00 89 21 110/63 100 10/29/23 12:31 84 20 113/57 100 10/29/23 12:15 97 10/29/23 12:02 81 17 97 10/29/23 11:30 88 26 H 113/56 95 10/29/23 11:04 98 F 87 24 107/57 92 L 10/29/23 11:00 88 18 107/57 68 L General Appearance: no apparent distress Neurologic Exam: alert, oriented x 3, cooperative Eye Exam: PERRL/EOMI Ears, Nose, Throat Exam: normal ENT inspection Neck Exam: normal inspection Respiratory Exam: normal breath sounds, lungs clear Cardiovascular Exam: regular rate/rhythm, normal heart sounds Gastrointestinal/Abdomen Exam: soft, normal bowel sounds Pelvic Exam: not done Rectal Exam: deferred Back Exam: normal inspection, normal range of motion Extremity Exam: normal inspection Skin Exam: normal color Results - Labs Lab/Micro Results: Lab Results-Last 24 Hours 10/29/23 10/29/23 10/29/23 Range/Units 11:45 11:50 11:50 WBC 5.3 (4.0-10.5) x10^3/uL RBC 3.15 L (4.1-5.4) x10^6/uL Hgb 9.1 L (12.0-16.0) g/dL Hct 29.4 L (35-47) % MCV 93.3 (78-100) fL MCH 28.9 (26-32) pg MCHC 31.0 L (32-36) g/dL RDW 13.6 (11.5-14.0) % Plt Count 261 (150-450) x10^3/uL MPV 9.6 (7.5-11.0) fL Gran % 59.5 (36.0-66.0) % Immature Gran % (Auto) 0.2 (0.00-0.4) % Nucleat RBC Rel Count 0.0 (0.00-0.1) % Eos # (Auto) 0.10 (0-0.5) x10^3/uL Immature Gran # (Auto) 0.01 (0.00-0.03) x10^3u/L Absolute Lymphs (auto) 1.42 (1.0-4.6) x10^3/uL Absolute Monos (auto) 0.60 (0.0-1.3) x10^3/uL Absolute Nucleated RBC 0.00 (0.00-0.01) x10^3u/L Lymphocytes % 26.7 (24.0-44.0) % Monocytes % 11.3 (0.0-12.0) % Eosinophils % 1.9 (0.00-5.0) % Basophils % 0.4 (0.0-0.4) % Absolute Granulocytes 3.16 (1.4-6.9) x10^3/uL Basophils # 0.02 (0-0.4) x10^3/uL Sodium 136 L (137-145) mmol/L Potassium 3.9 (3.5-5.1) mmol/L Chloride 99 (98-107) mmol/L Carbon Dioxide 30 (22-30) mmol/L Anion Gap 10.2 (5-15) MEQ/L BUN 32 H (7-17) mg/dL Creatinine 1.84 H (0.52-1.04) mg/dL Estimated GFR 27.4 ML/MIN Glucose 106 (74-106) mg/dL Calcium 9.2 (8.4-10.2) mg/dL Total Bilirubin 0.50 (0.2-1.3) mg/dL AST 30 (14-36) U/L ALT 24 (0-35) U/L Alkaline Phosphatase 98 (38-126) U/L Troponin I (0.000-0.034) ng/mL NT-Pro-B Natriuret Pep 221 (<300) pg/mL Serum Total Protein 6.5 (6.3-8.2) g/dL Albumin 3.8 (3.5-5.0) g/dL 10/29/23 10/29/23 Range/Units 11:50 15:58 WBC (4.0-10.5) x10^3/uL RBC (4.1-5.4) x10^6/uL Hgb (12.0-16.0) g/dL Hct (35-47) % MCV (78-100) fL MCH (26-32) pg MCHC (32-36) g/dL RDW (11.5-14.0) % Plt Count (150-450) x10^3/uL MPV (7.5-11.0) fL Gran % (36.0-66.0) % Immature Gran % (Auto) (0.00-0.4) % Nucleat RBC Rel Count (0.00-0.1) % Eos # (Auto) (0-0.5) x10^3/uL Immature Gran # (Auto) (0.00-0.03) x10^3u/L Absolute Lymphs (auto) (1.0-4.6) x10^3/uL Absolute Monos (auto) (0.0-1.3) x10^3/uL Absolute Nucleated RBC (0.00-0.01) x10^3u/L Lymphocytes % (24.0-44.0) % Monocytes % (0.0-12.0) % Eosinophils % (0.00-5.0) % Basophils % (0.0-0.4) % Absolute Granulocytes (1.4-6.9) x10^3/uL Basophils # (0-0.4) x10^3/uL Sodium (137-145) mmol/L Potassium (3.5-5.1) mmol/L Chloride (98-107) mmol/L Carbon Dioxide (22-30) mmol/L Anion Gap (5-15) MEQ/L BUN (7-17) mg/dL Creatinine (0.52-1.04) mg/dL Estimated GFR ML/MIN Glucose (74-106) mg/dL Calcium (8.4-10.2) mg/dL Total Bilirubin (0.2-1.3) mg/dL AST (14-36) U/L ALT (0-35) U/L Alkaline Phosphatase (38-126) U/L Troponin I < 0.012 < 0.012 (0.000-0.034) ng/mL NT-Pro-B Natriuret Pep (<300) pg/mL Serum Total Protein (6.3-8.2) g/dL Albumin (3.5-5.0) g/dL - Radiology Impressions Radiology Exams & Impressions: Radiology Procedures Category Date Time Status CHEST 1 VIEW (PORTABLE) Stat Exams 10/29/23 11:39 Completed Assessment/Plan (1) Acute renal injury Current Visit: Yes Status: Acute Assessment & Plan: -labs reviewed creat at 1.84, baseline around 1.1 - Will hold NOEMY/ARBS/NSAIDs -renal US -Urinalysis -NS at 100, monitor for fluid overload -Strict I&O -Monitor renal/lytes daily -Urine sodium/creat -Patient has seen in the past Code(s): N17.9 - ACUTE KIDNEY FAILURE, UNSPECIFIED (2) Hypertension Current Visit: Yes Status: Acute Assessment & Plan: -stable, hold lisinopril for now Code(s): I10 - ESSENTIAL (PRIMARY) HYPERTENSION (3) History of fall within past 90 days Current Visit: Yes Status: Acute Assessment & Plan: -Reviewed CT head/spine with no acute findings, patient unable to have MRI due to pain pump/stimulator -PT/OT Code(s): Z91.81 - HISTORY OF FALLING (4) HLD (hyperlipidemia) Current Visit: Yes Status: Acute Assessment & Plan: -continue home meds -lipid in the morning Code(s): E78.5 - HYPERLIPIDEMIA, UNSPECIFIED (5) Chest pain Current Visit: Yes Status: Acute Assessment & Plan: -EKG/initial trops unremarkable -BNP at 221 -ECHO, to be read by Elizabeth (patient's pneumatic deicer inspector) -Repeat EKG/trops in the morning -Nitro prn Code(s): R07.9 - CHEST PAIN, UNSPECIFIED
[2023-10-29] MEDS ORDERED: TYLENOL 325 MG PO PRN (18:31)
[2023-10-29] MEDS ORDERED: Zofran 4 MG/2 ML VIAL IV PRN (18:31)
[2023-10-29] MEDS: Sodium Chloride 0.9% 1000 ML 1,000 ML IV SCH (19:06)
[2023-10-29 21:24] LABS: Appearance Clear (Clear); Bacteria None Seen /HPF (None Seen); Bilirubin Negative (Negative); Blood Negative (Negative); Epithelial Cells None Seen /HPF (None Seen); Glucose, Urine Negative (Negative); Hyaline Casts NONE SEEN /LPF (0-2); Ketones Negative (Negative); Leukocyte Esterase Negative (Negative); Nitrite Negative (Negative); Ph 6.5 (4.6-8.0); Protein,Urine Dip Negative (Negative); RBC 0-2 /HPF (0-5); WBC 0-2 /HPF (0-5)
[2023-10-29 21:26] LABS: ADD URINE CULTURE? NO (NO)
[2023-10-29] MEDS: Cymbalta 30 MG Capsule PO SCH (21:43)
[2023-10-29] MEDS ORDERED: NON-FORMULARY ITEM (Pravastatin Sodium [Pravachol] 40 MG Tablet) PO SCH (22:00)
[2023-10-29] MEDS ORDERED: ECOTRIN 81 MG PO SCH (22:00)
[2023-10-29] MEDS ORDERED: NON-FORMULARY ITEM (Duloxetine Hcl [Duloxetine Hcl] 60 MG Capsule.Dr) PO SCH (22:00)
[2023-10-29] MEDS ORDERED: Cymbalta 30 MG Capsule PO SCH (22:00)
[2023-10-29] MEDS ORDERED: ZOCOR 20MG PO SCH (22:00)
[2023-10-29 22:23] LABS: CREATININE,URINE RANDOM 34.5 MG/DL
[2023-10-30 04:53] LABS: Mean Cell Volume 93.2 fL (78-100); Mean Platelet Volume 9.4 fL (7.5-11.0); Platelet Count 252 x10^3/uL (150-450); Red Blood Count 3.22 x10^6/uL (4.1-5.4); Red Cell Distribution Width 13.2 % (11.5-14.0); White Blood Count 4.4 x10^3/uL (4.0-10.5)
--- NOTE | 2023-10-30 05:13 | PCM.DS ---
Discharge Summary Date of Admission: 10/29/23 17:29 Date of Discharge: 10/30/23 Admitting Physician: LACHO SIMONS MD Primary Care Provider: CHARLES RUDD Allergies Allergies erythromycin base Adverse Reaction (Verified 10/29/23 11:03) Nausea esomeprazole [From Nexium] Adverse Reaction (Verified 10/29/23 11:03) Nausea etodolac [From Lodine] Adverse Reaction (Verified 10/29/23 11:03) Nausea oxaprozin [From Daypro] Adverse Reaction (Verified 10/29/23 11:03) Nausea oxycodone [From OxyContin] Adverse Reaction (Verified 10/29/23 11:03) Nausea rofecoxib [From Vioxx] Adverse Reaction (Verified 10/29/23 11:03) Nausea Sulfa (Sulfonamide Antibiotics) Adverse Reaction (Verified 10/29/23 11:03) Nausea Hospital Summary - Hospital Course Hospital Course: is a 82 year old female with a pmhx of HLD and HTN presented to the ED 10/29/23 with complaints of neck, base of skull, and chest pain. Patient states she was in her usual state of health until last when she rolled out of bed onto the floor. She reports hearing a "crunching" sound when she hit the floor. She did present to the ED at [facility] after that episode and was evalua rylie. CT imaging of her head and cervical spine were negative for any acute findings. The pain that was initially intermittent following the fall has now become constant. She describes the pain in her chest as midsternal, dull/aching in characteristic with radiation to her left arm and neck. She rates the pain 7/10 on a numerical pain scale. She does have associated shortness of breath. She has had previous orthopedic surgery and has an implanted pain pump with diluadid and simulator. She is not able to have an MRI. Upon presentation, vitals unremarkable. EKG NS with no acute ischemia, ST elevations/ deviations. Trops x 2 WNL. CXR with no acute cardiopulmonary processes. Lab findings remarkable for STANISLAV with creat at 1.84 (unknown baseline, previous stays here show around 1.1-1.2), and normocytic, normochromic anemia with hgb at 9.1, most likely secondary to her CKD. Patient given IVF bolus in ED. Patient admitted for observation of chest pain and STANISLAV. No overnight events noted. STANISLAV is resolving, although unsure what baseline is. Patient states she has seen Dr. Piña in the past. Advised follow up. Renal US and Echo pending. No longer with chest pain, repeat ekg and troponins unremarkable. Patient to follow up with Dr Johnson for final Echo read and further evaluation. Patient agreeable to plan and ready for discharge. Discharge Note New Diagnosis: STANISLAV/Chest pain New Medications: none - hold lisinopril until nephrology follow up/pcp follow up Follow Up:PCP/cards/nephrology Results pending: Renal US /Echo Latest Assessment & Plan (1) Acute renal injury Current Visit: Yes Status: Acute Assessment & Plan: -labs reviewed creat at 1.84, baseline around 1.1 - Will hold NOEMY/ARBS/NSAIDs -renal US -Urinalysis -NS at 100, monitor for fluid overload -Strict I&O -Monitor renal/lytes daily -Urine sodium/creat -Patient has seen in the past Code(s): N17.9 - ACUTE KIDNEY FAILURE, UNSPECIFIED (2) Hypertension Current Visit: Yes Status: Acute Assessment & Plan: -stable, hold lisinopril for now Code(s): I10 - ESSENTIAL (PRIMARY) HYPERTENSION (3) History of fall within past 90 days Current Visit: Yes Status: Acute Assessment & Plan: -Reviewed CT head/spine with no acute findings, patient unable to have MRI due to pain pump/stimulator -PT/OT Code(s): Z91.81 - HISTORY OF FALLING (4) HLD (hyperlipidemia) Current Visit: Yes Status: Acute Assessment & Plan: -continue home meds -lipid in the morning Code(s): E78.5 - HYPERLIPIDEMIA, UNSPECIFIED (5) Chest pain Current Visit: Yes Status: Acute Assessment & Plan: -EKG/initial trops unremarkable -BNP at 221 -ECHO, to be read by Elizabeth (patient's range aide) -Repeat EKG/trops in the morning -Nitro prn I spent 35 minutes [id number] with the patient on the day of discharge performing discharge exam, discussing hospital stay and discharge instructions with patient and caregivers, preparation of discharge records, prescriptions & referral forms and addressing any questions/concerns the patient had as documented above. - Vitals & Intake/Output Vital Signs: Vital Signs Temperature 97.3 F 10/29/23 23:48 Pulse Rate 72 10/29/23 23:48 Respiratory Rate 18 10/29/23 23:48 Blood Pressure 120/59 10/29/23 23:48 O2 Sat by Pulse Oximetry 95 10/29/23 23:48 Intake & Output: Intake & Output 10/27/23 10/28/23 10/29/23 10/30/23 11:59 11:59 11:59 11:59 Intake Total 100 Output Total 700 Balance -600 Weight 77 kg 75.1 kg - Lab Result Diagrams: 10/30/23 04:47 10/30/23 04:47 Lab Results-Last 24 Hrs: Lab Results-Last 24 Hours 10/29/23 10/29/23 10/29/23 Range/Units 11:45 11:50 11:50 WBC 5.3 (4.0-10.5) x10^3/uL RBC 3.15 L (4.1-5.4) x10^6/uL Hgb 9.1 L (12.0-16.0) g/dL Hct 29.4 L (35-47) % MCV 93.3 (78-100) fL MCH 28.9 (26-32) pg MCHC 31.0 L (32-36) g/dL RDW 13.6 (11.5-14.0) % Plt Count 261 (150-450) x10^3/uL MPV 9.6 (7.5-11.0) fL Gran % 59.5 (36.0-66.0) % Immature Gran % (Auto) 0.2 (0.00-0.4) % Nucleat RBC Rel Count 0.0 (0.00-0.1) % Eos # (Auto) 0.10 (0-0.5) x10^3/uL Immature Gran # (Auto) 0.01 (0.00-0.03) x10^3u/L Absolute Lymphs (auto) 1.42 (1.0-4.6) x10^3/uL Absolute Monos (auto) 0.60 (0.0-1.3) x10^3/uL Absolute Nucleated RBC 0.00 (0.00-0.01) x10^3u/L Lymphocytes % 26.7 (24.0-44.0) % Monocytes % 11.3 (0.0-12.0) % Eosinophils % 1.9 (0.00-5.0) % Basophils % 0.4 (0.0-0.4) % Absolute Granulocytes 3.16 (1.4-6.9) x10^3/uL Basophils # 0.02 (0-0.4) x10^3/uL Sodium 136 L (137-145) mmol/L Potassium 3.9 (3.5-5.1) mmol/L Chloride 99 (98-107) mmol/L Carbon Dioxide 30 (22-30) mmol/L Anion Gap 10.2 (5-15) MEQ/L BUN 32 H (7-17) mg/dL Creatinine 1.84 H (0.52-1.04) mg/dL Estimated GFR 27.4 ML/MIN Glucose 106 (74-106) mg/dL Calcium 9.2 (8.4-10.2) mg/dL Total Bilirubin 0.50 (0.2-1.3) mg/dL AST 30 (14-36) U/L ALT 24 (0-35) U/L Alkaline Phosphatase 98 (38-126) U/L Troponin I (0.000-0.034) ng/mL NT-Pro-B Natriuret Pep 221 (<300) pg/mL Serum Total Protein 6.5 (6.3-8.2) g/dL Albumin 3.8 (3.5-5.0) g/dL Urine Color (Yellow) Urine Appearance (Clear) Urine pH (4.6-8.0) Ur Specific [place] (1.005-1.030) Urine Protein (Negative) Urine Glucose (UA) (Negative) mg/dL Urine Ketones (Negative) Urine Blood (Negative) Urine Nitrite (Negative) Urine Bilirubin (Negative) Urine Urobilinogen (0.2) mg/dL Ur Leukocyte Esterase (Negative) U Hyaline Cast (Auto) (0-2) /LPF Urine Microscopic RBC (0-5) /HPF Urine Microscopic WBC (0-5) /HPF Ur Epithelial Cells (None Seen) /HPF Urine Bacteria (None Seen) /HPF Urine Culture Reflexed (NO) Ur Random Creatinine MG/DL Urine Sodium (30-90) mmol/L 01/30/24 01/30/24 01/30/24 Range/Units 11:50 15:58 19:45 WBC (4.0-10.5) x10^3/uL RBC (4.1-5.4) x10^6/uL Hgb (12.0-16.0) g/dL Hct (35-47) % MCV (78-100) fL MCH (26-32) pg MCHC (32-36) g/dL RDW (11.5-14.0) % Plt Count (150-450) x10^3/uL MPV (7.5-11.0) fL Gran % (36.0-66.0) % Immature Gran % (Auto) (0.00-0.4) % Nucleat RBC Rel Count (0.00-0.1) % Eos # (Auto) (0-0.5) x10^3/uL Immature Gran # (Auto) (0.00-0.03) x10^3u/L Absolute Lymphs (auto) (1.0-4.6) x10^3/uL Absolute Monos (auto) (0.0-1.3) x10^3/uL Absolute Nucleated RBC (0.00-0.01) x10^3u/L Lymphocytes % (24.0-44.0) % Monocytes % (0.0-12.0) % Eosinophils % (0.00-5.0) % Basophils % (0.0-0.4) % Absolute Granulocytes (1.4-6.9) x10^3/uL Basophils # (0-0.4) x10^3/uL Sodium (137-145) mmol/L Potassium (3.5-5.1) mmol/L Chloride (98-107) mmol/L Carbon Dioxide (22-30) mmol/L Anion Gap (5-15) MEQ/L BUN (7-17) mg/dL Creatinine (0.52-1.04) mg/dL Estimated GFR ML/MIN Glucose (74-106) mg/dL Calcium (8.4-10.2) mg/dL Total Bilirubin (0.2-1.3) mg/dL AST (14-36) U/L ALT (0-35) U/L Alkaline Phosphatase (38-126) U/L Troponin I < 0.012 < 0.012 < 0.012 (0.000-0.034) ng/mL NT-Pro-B Natriuret Pep (<300) pg/mL Serum Total Protein (6.3-8.2) g/dL Albumin (3.5-5.0) g/dL Urine Color (Yellow) Urine Appearance (Clear) Urine pH (4.6-8.0) Ur Specific [place] (1.005-1.030) Urine Protein (Negative) Urine Glucose (UA) (Negative) mg/dL Urine Ketones (Negative) Urine Blood (Negative) Urine Nitrite (Negative) Urine Bilirubin (Negative) Urine Urobilinogen (0.2) mg/dL Ur Leukocyte Esterase (Negative) U Hyaline Cast (Auto) (0-2) /LPF Urine Microscopic RBC (0-5) /HPF Urine Microscopic WBC (0-5) /HPF Ur Epithelial Cells (None Seen) /HPF Urine Bacteria (None Seen) /HPF Urine Culture Reflexed (NO) Ur Random Creatinine MG/DL Urine Sodium (30-90) mmol/L 10/29/23 10/29/23 10/30/23 Range/Units 20:52 20:52 04:47 WBC 4.4 (4.0-10.5) x10^3/uL RBC 3.22 L (4.1-5.4) x10^6/uL Hgb 9.0 L (12.0-16.0) g/dL Hct 30.0 L (35-47) % MCV 93.2 (78-100) fL MCH 28.0 (26-32) pg MCHC 30.0 L (32-36) g/dL RDW 13.2 (11.5-14.0) % Plt Count 252 (150-450) x10^3/uL MPV 9.4 (7.5-11.0) fL Gran % (36.0-66.0) % Immature Gran % (Auto) (0.00-0.4) % Nucleat RBC Rel Count (0.00-0.1) % Eos # (Auto) (0-0.5) x10^3/uL Immature Gran # (Auto) (0.00-0.03) x10^3u/L Absolute Lymphs (auto) (1.0-4.6) x10^3/uL Absolute Monos (auto) (0.0-1.3) x10^3/uL Absolute Nucleated RBC (0.00-0.01) x10^3u/L Lymphocytes % (24.0-44.0) % Monocytes % (0.0-12.0) % Eosinophils % (0.00-5.0) % Basophils % (0.0-0.4) % Absolute Granulocytes (1.4-6.9) x10^3/uL Basophils # (0-0.4) x10^3/uL Sodium (137-145) mmol/L Potassium (3.5-5.1) mmol/L Chloride (98-107) mmol/L Carbon Dioxide (22-30) mmol/L Anion Gap (5-15) MEQ/L BUN (7-17) mg/dL Creatinine (0.52-1.04) mg/dL Estimated GFR ML/MIN Glucose (74-106) mg/dL Calcium (8.4-10.2) mg/dL Total Bilirubin (0.2-1.3) mg/dL AST (14-36) U/L ALT (0-35) U/L Alkaline Phosphatase (38-126) U/L Troponin I (0.000-0.034) ng/mL NT-Pro-B Natriuret Pep (<300) pg/mL Serum Total Protein (6.3-8.2) g/dL Albumin (3.5-5.0) g/dL Urine Color Yellow (Yellow) Urine Appearance Clear (Clear) Urine pH 6.5 (4.6-8.0) Ur Specific [place] 1.010 (1.005-1.030) Urine Protein Negative (Negative) Urine Glucose (UA) Negative (Negative) mg/dL Urine Ketones Negative (Negative) Urine Blood Negative (Negative) Urine Nitrite Negative (Negative) Urine Bilirubin Negative (Negative) Urine Urobilinogen 1.0 A (0.2) mg/dL Ur Leukocyte Esterase Negative (Negative) U Hyaline Cast (Auto) NONE SEEN (0-2) /LPF Urine Microscopic RBC 0-2 (0-5) /HPF Urine Microscopic WBC 0-2 (0-5) /HPF Ur Epithelial Cells None Seen (None Seen) /HPF Urine Bacteria None Seen (None Seen) /HPF Urine Culture Reflexed NO (NO) Ur Random Creatinine 34.5 MG/DL Urine Sodium 74 (30-90) mmol/L - Radiology Exams Ordered Rad Exams-Entire Visit: Radiology Procedures Category Date Time Status CHEST 1 VIEW (PORTABLE) Stat Exams 10/29/23 11:39 Completed ECHO W/2D AND DOPPLER [US] Routine Exams 10/30/23 08:00 Ordered KIDNEY [US] Routine Exams 10/30/23 08:00 Ordered - Procedures and Test Procedures and Tests throughout Hospitalization: Therapy Orders & Screens 10/29/23 18:31 PT Eval & Treat (MD Order) ONCE Reason for Eval:: back pain weakness Diagnosis: ACS, Chest pain CAROLINE EKG REPEAT IN AM Comment: Diagnosis: ACS, Chest pain CAROLINE OT Eval and Treat (MD Order) ONCE Comment: Physician Instructions: Reason For Exam: Diagnosis: ACS, Chest pain CAROLINE Discharge Exam General Appearance: no apparent distress Neurologic Exam: alert, oriented x 3, cooperative Eye Exam: PERRL Ears, Nose, Throat Exam: normal ENT inspection Neck Exam: normal inspection Respiratory Exam: normal breath sounds, lungs clear Cardiovascular Exam: regular rate/rhythm, normal heart sounds Gastrointestinal/Abdomen Exam: soft, normal bowel sounds Pelvic Exam: deferred Rectal Exam: deferred Back Exam: normal inspection, normal range of motion Extremity Exam: normal inspection, normal range of motion Skin Exam: normal color Final Diagnosis/Problem List - Final Discharge Diagnosis/Problem (1) Acute renal injury Current Visit: Yes Status: Acute Code(s): N17.9 - ACUTE KIDNEY FAILURE, UNSPECIFIED (2) Hypertension Current Visit: Yes Status: Acute Code(s): I10 - ESSENTIAL (PRIMARY) HYPERTENSION (3) History of fall within past 90 days Current Visit: Yes Status: Acute Code(s): Z91.81 - HISTORY OF FALLING (4) HLD (hyperlipidemia) Current Visit: Yes Status: Acute Code(s): E78.5 - HYPERLIPIDEMIA, UNSPECIFIED (5) Chest pain Current Visit: Yes Status: Acute Code(s): R07.9 - CHEST PAIN, UNSPECIFIED - Discharge Disposition: Home, Self-Care Condition: Stable Prescriptions: No Action Pravastatin Sodium [Pravachol] 40 mg PO HS Aspirin [Aspirin EC] 81 mg PO HS Omeprazole 20 MG [Prilosec 20 mg] 20 mg PO DAILY Multivitamin [Multivitamins] 1 each PO DAILY Duloxetine HCl 60 mg PO BID lisinopriL [Lisinopril] 20 mg PO DAILY Potassium Chloride Tab* [Klor Con] 10 meq PO DAILY Furosemide 40 mg [Lasix 40 MG] 1 tab PO DAILY Follow up with: CHARLES RUDD MD [Primary Care Provider] - ROBINSON PIÑA [CONSULTING PHYSICIAN] - (3-5 days) MONO JOHNSON [CONSULTING PHYSICIAN] - 1 Week
[2023-10-30 05:17] LABS: ALBUMIN 3.5 g/dL (3.5-5.0); ANION GAP 7.2 MEQ/L (5-15); BILIRUBIN,TOTAL 0.6 mg/dL (0.2-1.3); Calcium 9.1 mg/dL (8.4-10.2); Creatinine 1 1.3 mg/dL (0.52-1.04); EST GLOMERULAR FILTRATION RATE 41.6 ML/MIN; Potassium 3.7 mmol/L (3.5-5.1); Total Protein 6.1 g/dL (6.3-8.2)
[2023-10-30 05:19] VITALS: O2SAT 99
[2023-10-30] MEDS: Sodium Chloride 0.9% 1000 ML 1,000 ML IV SCH (05:28)
[2023-10-30 07:57] VITALS: RESP 16
[2023-10-30] MEDS ORDERED: Protonix 40MG Tablet PO SCH (10:00)
[2023-10-30] MEDS ORDERED: THERAGRAN MULTIVITAMIN PO SCH (10:00)
[2023-10-30] MEDS ORDERED: Lasix 40 MG PO SCH (10:00)
[2023-10-30] MEDS ORDERED: Klor Con PO SCH (10:00)
[2023-10-30] MEDS: Cymbalta 30 MG Capsule PO SCH (10:57)
--- NOTE | 2023-10-30 11:42 | XRAY ---
Indication: Acute kidney injury. Two-dimensional renal sonogram performed. Comparison: None Both kidneys are normal in reniform shape with normal color perfusion. Right kidney measures 8.9 x 4.4 x 4.3 cm and left measures 9.3 x 4.7 x 5.1 cm. No focal solid/cystic renal mass or hydronephrosis. Corticomedullary differentiation preserved. Normally distended urinary bladder is unremarkable. Normal bilateral ureteral jets. Impression: Negative renal sonogram.
[2023-10-30 12:38] VITALS: BP 116/59; PULSE 60; TEMP 97.4
--- NOTE | 2023-10-30 13:14 | ECHO ---
Transthoracic echocardiographic examination and color Doppler was done on 10/30/2023. INDICATION: Chest pain. IMPRESSION: 1) NO REGIONAL WALL MOTION ABNORMALITY. ESTIMATED GLOBAL LEFT VENTRICULAR EJECTION FRACTION OF AROUND 60%. 2) MILD MITRAL REGURGITATION. 3) MILD TRICUSPID REGURGITATION. RIGHT VENTRICULAR SYSTOLIC PRESSURE OF 39 MM OF MERCURY. 4) LEFT VENTRICULAR HYPERTROPHY. The left ventricle is visualized and demonstrated adequate motion of all the segments. Estimated global left ventricular ejection fraction around 60%. There is mild left ventricular hypertrophy. The mitral valve is seen and this opens adequately. There is mild mitral regurgitation. Left atrium is normal. The aortic valve opens adequately. The peak gradient across the aortic valve is 11 mm of Mercury. The right side chambers are normal. There is mild tricuspid regurgitation. The right ventricular systolic pressure of 39 mm of Mercury.
--- NOTE | 2023-10-30 18:03 | PCM.DCORD ---
- Discharge Disposition: Home, Self-Care Condition: Stable Prescriptions: Continue RX: Pravastatin Sodium [Pravachol] 40 mg PO HS RX: Aspirin [Aspirin EC] 81 mg PO HS RX: Omeprazole 20 MG [Prilosec 20 mg] 20 mg PO DAILY RX: Multivitamin [Multivitamins] 1 each PO DAILY RX: Duloxetine HCl 60 mg PO BID RX: Potassium Chloride Tab* [Klor Con] 10 meq PO DAILY RX: Furosemide 40 mg [Lasix 40 MG] 1 tab PO DAILY Discontinued RX: lisinopriL [Lisinopril] 20 mg PO DAILY Instructions: Acute Kidney Injury (DC) Follow up with: CHARLES RUDD MD [Primary Care Provider] - 11/06/23 10:45 am MONO GREEN [CONSULTING PHYSICIAN] - 11/08/23 12:45 pm ([facility]) ROBINSON JUNG [CONSULTING PHYSICIAN] - 11/04/23 4:40 pm ([facility]- [address] [place] [address])
== END 2023-10-30 13:44 | disposition home or self-care (01) ==
LOC: ED 10:58 → MED SURG 17:29
PROVIDERS: ADMIT Internal Medicine; ATTEND Internal Medicine
DX: N17.9 Acute kidney failure, unspecified (principal); I10 Essential (primary) hypertension; Z91.81 History of falling; E78.5 Hyperlipidemia, unspecified; R07.9 Chest pain, unspecified; D64.9 Anemia, unspecified; Z79.899 Other long term (current) drug therapy; Z20.828 Contact with and (suspected) exposure to other viral communicable diseases
CPT/HCPCS: 36000; 36415; 71045; 76770; 80053; 81001; 82570; 83880; 84300; 84484; 85025; 85027; 93005; 93041; 93268; 93306; 94760; 99284; Q3014; A9270-GY; G0378

== ENCOUNTER 2024-01-14 17:40 | Emergency (ER) | payer MEDICARE ==
[2024-01-14 18:02] VITALS: TEMP 97.5
[2024-01-14 18:23] LABS: Absolute Neutrophil Ct (ANC) 3.21 x10^3/uL (1.4-6.9); BASOPHIL % 0.4 % (0.0-0.4); Basophil (Absolute #) 0.02 x10^3/uL (0-0.4); Eosinophil (Absolute #) 0.05 x10^3/uL (0-0.5); Hematocrit 32.7 % (35-47); Hemoglobin 10.1 g/dL (12.0-16.0); IMMATURE GRAN # 0.01 x10^3u/L (0.00-0.03); IMMATURE GRAN % 0.2 % (0.00-0.4); Lymphocyte (Absolute #) 1.31 x10^3/uL (1.0-4.6); Lymphocytes % 25.4 % (24.0-44.0); Mean Cell Volume 92.1 fL (78-100); Mean Corpuscular Hemoglobin 28.5 pg (26-32); Mean Corpuscular Hgb Concent. 30.9 g/dL (32-36); Mean Platelet Volume 9.6 fL (7.5-11.0); Monocyte (Absolute #) 0.55 x10^3/uL (0.0-1.3); Monocytes % 10.7 % (0.0-12.0); Neutrophil % 62.3 % (36.0-66.0); Platelet Count 255 x10^3/uL (150-450); Red Blood Count 3.55 x10^6/uL (4.1-5.4); Red Cell Distribution Width 13.2 % (11.5-14.0); White Blood Count 5.2 x10^3/uL (4.0-10.5)
[2024-01-14 18:41] LABS: INR 0.99 (0.8-3.0); PROTIME 10.8 SECONDS (9.4-12.5); PTT 35.6 SECONDS (25.1-36.5)
[2024-01-14 18:41] LABS: Appearance Clear (Clear); Bacteria None Seen /HPF (None Seen); Bilirubin Negative (Negative); Blood Negative (Negative); Epithelial Cells None Seen /HPF (None Seen); Glucose, Urine Negative (Negative); Hyaline Casts NONE SEEN /LPF (0-2); Ketones Negative (Negative); Leukocyte Esterase Negative (Negative); Nitrite Negative (Negative); Protein,Urine Dip Negative (Negative); RBC 0-2 /HPF (0-5); Specific Gravity <=1.005 (1.005-1.030); WBC 0-2 /HPF (0-5)
[2024-01-14 18:44] VITALS: O2SAT 98
--- NOTE | 2024-01-14 18:53 | ERPHSYRPT ---
- History of Present Illness Time Seen by Provider: 01/14/24 18:00 Source: patient Exam Limitations: no limitations Patient Subjective Stated Complaint: Pt states "I fell on saturday and I went to [facility] today and he did some x rays and a head ct and then he called me and told me to come to the er because I have a brain bleed." Triage Nursing Assessment: Pt presented alert and oriented X 3, skin pwd. Pt able to speak in clear full sentences. PT resting comfortable on the bed. PT ambulates with a hunched over gait. Pt tearful. PT has laarge hematoma noted to left upper arm/elbow Physician History: 83-year-old female referred to our ED for transfer due to a subacute right parietal subdural hematoma. Patient fell 2 days ago. Patient was seen and worked up by nurse practitioner [facility]. [facility] serrato was advised of the CT findings and therefore told patient to come to our ED for transfer. Patient has a slight headache. Patient otherwise feels well. No numbness tingling or weakness. No fever. Patient is not on a blood thinner. Patient denies having any symptoms at this time. She voices no other complaints or concerns at this time. Portions of this note were created with voice recognition technology. There may be grammatical, spelling, punctuation or sound alike errors Timing/Duration: today Severity: moderate Modifying Factors: Improves With: nothing Associated Symptoms: denies symptoms Allergies/Adverse Reactions: erythromycin base Adverse Reaction (Verified 12/11/23 10:25) Nausea esomeprazole [From Nexium] Adverse Reaction (Verified 12/11/23 10:25) Nausea etodolac [From Lodine] Adverse Reaction (Verified 12/11/23 10:25) Nausea oxaprozin [From Daypro] Adverse Reaction (Verified 12/11/23 10:25) Nausea oxycodone [From OxyContin] Adverse Reaction (Verified 12/11/23 10:25) Nausea rofecoxib [From Vioxx] Adverse Reaction (Verified 12/11/23 10:25) Nausea Sulfa (Sulfonamide Antibiotics) Adverse Reaction (Verified 12/11/23 10:25) Nausea Home Medications: Aspirin [Aspirin EC] 81 mg PO HS 12/07/16 [History] Omeprazole 20 MG [Prilosec 20 mg] 20 mg PO DAILY 12/07/16 [History] Pravastatin Sodium [Pravachol] 40 mg PO HS 12/07/16 [History] Duloxetine HCl 60 mg PO BID 01/01/19 [History] Multivitamin [Multivitamins] 1 each PO DAILY 01/01/19 [History] Potassium Chloride Tab* [Klor Con] 10 meq PO DAILY 09/27/20 [History] Furosemide 40 mg [Lasix 40 MG] 1 tab PO DAILY 10/29/23 [History] Hx Tetanus, Diphtheria Vaccination/Date Given: Yes Hx Influenza Vaccination/Date Given: Yes Hx Pneumococcal Vaccination/Date Given: Yes Immunizations Up to Date: No Travel Risk - International Travel Have you traveled outside of the country in past 3 weeks: No - Emerging Infectious Disease Are you exhibiting symptoms associated with any current EIDs: No - Review of Systems Constitutional: No Symptoms, No Fever, No Chills Eyes: No Symptoms Ears, Nose, & Throat: No Symptoms Respiratory: No Symptoms, No Cough, No Dyspnea Cardiac: No Symptoms, No Chest Pain, No Edema, No Syncope Abdominal/Gastrointestinal: No Symptoms, No Abdominal Pain, No Nausea, No Vomiting, No Diarrhea Genitourinary Symptoms: No Symptoms, No Dysuria Musculoskeletal: No Symptoms, No Back Pain, No Neck Pain Skin: No Symptoms, No Rash Neurological: No Symptoms, No Dizziness, No Focal Weakness, No Sensory Changes Psychological: No Symptoms Endocrine: No Symptoms Hematologic/Lymphatic: No Symptoms Immunological/Allergic: No Symptoms All Other Systems: Reviewed and Negative - Past Medical History Pertinent Past Medical History: Yes Neurological History: Other ENT History: No Pertinent History Cardiac History: High Cholesterol, Hypertension Respiratory History: No Pertinent History Endocrine Medical History: No Pertinent History Musculoskeletal History: Arthritis GI Medical History: No Pertinent History History: No Pertinent History Psycho-Social History: No Pertinent History Female Reproductive Disorders: No Pertinent History Other Medical History: SEEN DR JUNG IN PAST FOR KIDNEY ISSUES. ANEMIA - Past Surgical History Past Surgical History: Yes Neuro Surgical History: No Pertinent History Cardiac: No Pertinent History Respiratory: No Pertinent History Gastrointestinal: No Pertinent History Genitourinary: No Pertinent History Musculoskeletal: Orthopedic Surgery, Other Female Surgical History: Hysterectomy, Section Other Surgical History: Carpal tunnel, L knee, stimulator in back, several back surgeries, right foot times 2, pain pump with dilaudid,colonoscopy. [id number] - Social History Smoking Status: Never smoker Exposure to second hand smoke: No Drug Use: none Patient Lives Alone: No (lives with ) - Nursing Vital Signs Nursing Vital Signs: Initial Vital Signs Temperature 97.5 F 01/14/24 17:43 Pulse Rate 75 01/14/24 17:43 Respiratory Rate 20 01/14/24 17:43 Blood Pressure 154/98 01/14/24 17:43 O2 Sat by Pulse Oximetry 95 01/14/24 17:43 Pain Scale Pain Intensity 6 - Physical Exam General Appearance: no apparent distress, alert Eye Exam: PERRL/EOMI, eyes nml inspection Ears, Nose, Throat Exam: normal ENT inspection, TMs normal, pharynx normal, moist mucous membranes Neck Exam: normal inspection, non-tender, supple, full range of motion Respiratory Exam: normal breath sounds, lungs clear, airway intact, No respiratory distress Cardiovascular Exam: regular rate/rhythm, normal heart sounds, normal peripheral pulses Gastrointestinal/Abdomen Exam: soft, normal bowel sounds, No tenderness, No mass Back Exam: normal inspection, normal range of motion, No CVA tenderness, No vertebral tenderness Extremity Exam: normal inspection, normal range of motion, pelvis stable Neurologic Exam: alert, oriented x 3, cooperative, normal mood/affect, sensation nml, No motor deficits Skin Exam: normal color, warm, dry, No rash Lymphatic Exam: No adenopathy SpO2 Interpretation: normal SpO2: 98 O2 Delivery: Room Air - Course Nursing assessment & vital signs reviewed: Yes EKG Interpreted by Me: RATE (65), Sinus Rhythm, NORMAL AXIS, NORMAL INTERVALS - CT Exams Head CT Interpretation: Tele-radiologist Report (CT head reveals new subacute to chronic appearing right parietal subdural hematoma.) Ordered Tests: Active Orders 24 hr Category Date Time Status Contract Driver STAT Care 01/14/24 17:47 Active EKG-ER Only STAT Care 01/14/24 17:46 Active IV Insertion STAT Care 01/14/24 17:46 Active Pulse Oximetry (ED) STAT Care 01/14/24 17:46 Active CBC W DIFF Stat Lab 01/14/24 18:13 Completed CMP Stat Lab 01/14/24 18:13 Completed PROTIME WITH INR Stat Lab 01/14/24 18:13 Completed PTT Stat Lab 01/14/24 18:13 Completed TROPONIN Q4H Lab 01/14/24 18:13 Completed TROPONIN Q4H Lab 01/14/24 22:00 Ordered TROPONIN Q4H Lab 01/15/24 02:00 Ordered UA W/RFX UR CULTURE Stat Lab 01/14/24 18:03 Completed Medication Summary Discontinued Medications Generic Name Dose Route Start Last Admin Trade Name Destiny PRN Reason Stop Dose Admin Acetaminophen 1,000 mg 01/14/24 19:08 01/14/24 19:13 Acetaminophen 500 Mg Tablet PO 01/14/24 19:09 1,000 mg STAT STA Administration Acetaminophen Confirm 01/14/24 19:10 Acetaminophen 500 Mg Tablet Administered 01/14/24 19:11 Dose 1,000 mg .ROUTE .TUNJI ONE Lab/Rad Data: Laboratory Result Diagrams 01/14/24 18:13 01/14/24 18:13 Laboratory Results 01/14/24 01/14/24 01/14/24 Range/Units 18:13 18:13 18:13 WBC (4.0-10.5) x10^3/uL RBC (4.1-5.4) x10^6/uL Hgb (12.0-16.0) g/dL Hct (35-47) % MCV (78-100) fL MCH (26-32) pg MCHC (32-36) g/dL RDW (11.5-14.0) % Plt Count (150-450) x10^3/uL MPV (7.5-11.0) fL Gran % (36.0-66.0) % Immature Gran % (Auto) (0.00-0.4) % Nucleat RBC Rel Count (0.00-0.1) % Eos # (Auto) (0-0.5) x10^3/uL Immature Gran # (Auto) (0.00-0.03) x10^3u/L Absolute Lymphs (auto) (1.0-4.6) x10^3/uL Absolute Monos (auto) (0.0-1.3) x10^3/uL Absolute Nucleated RBC (0.00-0.01) x10^3u/L Lymphocytes % (24.0-44.0) % Monocytes % (0.0-12.0) % Eosinophils % (0.00-5.0) % Basophils % (0.0-0.4) % Absolute Granulocytes (1.4-6.9) x10^3/uL Basophils # (0-0.4) x10^3/uL PT 10.8 (9.4-12.5) SECONDS INR 0.99 (0.8-3.0) APTT 35.6 (25.1-36.5) SECONDS Sodium 140 (135-145) mmol/L Potassium 3.5 (3.5-5.1) mmol/L Chloride 101 (98-107) mmol/L Carbon Dioxide 34 H (22-30) mmol/L Anion Gap 8.5 (5-15) MEQ/L BUN 14 (7-17) mg/dL Creatinine 1.05 H (0.52-1.04) mg/dL Estimated GFR 53.4 ML/MIN Glucose 100 (74-106) mg/dL Calcium 9.1 (8.4-10.2) mg/dL Total Bilirubin 0.60 (0.2-1.3) mg/dL AST 43 H (14-36) U/L ALT 25 (0-35) U/L Alkaline Phosphatase 111 (38-126) U/L Troponin I < 0.012 (0.000-0.033) ng/mL Serum Total Protein 6.6 (6.3-8.2) g/dL Albumin 3.8 (3.5-5.0) g/dL Urine Color (Yellow) Urine Appearance (Clear) Urine pH (4.6-8.0) Ur Specific [place] (1.005-1.030) Urine Protein (Negative) Urine Glucose (UA) (Negative) mg/dL Urine Ketones (Negative) Urine Blood (Negative) Urine Nitrite (Negative) Urine Bilirubin (Negative) Urine Urobilinogen (0.2) mg/dL Ur Leukocyte Esterase (Negative) U Hyaline Cast (Auto) (0-2) /LPF Urine Microscopic RBC (0-5) /HPF Urine Microscopic WBC (0-5) /HPF Ur Epithelial Cells (None Seen) /HPF Urine Bacteria (None Seen) /HPF Urine Culture Reflexed (NO) 01/14/24 01/14/24 Range/Units 18:13 18:03 WBC 5.2 (4.0-10.5) x10^3/uL RBC 3.55 L (4.1-5.4) x10^6/uL Hgb 10.1 L (12.0-16.0) g/dL Hct 32.7 L (35-47) % MCV 92.1 (78-100) fL MCH 28.5 (26-32) pg MCHC 30.9 L (32-36) g/dL RDW 13.2 (11.5-14.0) % Plt Count 255 (150-450) x10^3/uL MPV 9.6 (7.5-11.0) fL Gran % 62.3 (36.0-66.0) % Immature Gran % (Auto) 0.2 (0.00-0.4) % Nucleat RBC Rel Count 0.0 (0.00-0.1) % Eos # (Auto) 0.05 (0-0.5) x10^3/uL Immature Gran # (Auto) 0.01 (0.00-0.03) x10^3u/L Absolute Lymphs (auto) 1.31 (1.0-4.6) x10^3/uL Absolute Monos (auto) 0.55 (0.0-1.3) x10^3/uL Absolute Nucleated RBC 0.00 (0.00-0.01) x10^3u/L Lymphocytes % 25.4 (24.0-44.0) % Monocytes % 10.7 (0.0-12.0) % Eosinophils % 1.0 (0.00-5.0) % Basophils % 0.4 (0.0-0.4) % Absolute Granulocytes 3.21 (1.4-6.9) x10^3/uL Basophils # 0.02 (0-0.4) x10^3/uL PT (9.4-12.5) SECONDS INR (0.8-3.0) APTT (25.1-36.5) SECONDS Sodium (135-145) mmol/L Potassium (3.5-5.1) mmol/L Chloride (98-107) mmol/L Carbon Dioxide (22-30) mmol/L Anion Gap (5-15) MEQ/L BUN (7-17) mg/dL Creatinine (0.52-1.04) mg/dL Estimated GFR ML/MIN Glucose (74-106) mg/dL Calcium (8.4-10.2) mg/dL Total Bilirubin (0.2-1.3) mg/dL AST (14-36) U/L ALT (0-35) U/L Alkaline Phosphatase (38-126) U/L Troponin I (0.000-0.033) ng/mL Serum Total Protein (6.3-8.2) g/dL Albumin (3.5-5.0) g/dL Urine Color Yellow (Yellow) Urine Appearance Clear (Clear) Urine pH 7.0 (4.6-8.0) Ur Specific [place] <=1.005 (1.005-1.030) Urine Protein Negative (Negative) Urine Glucose (UA) Negative (Negative) mg/dL Urine Ketones Negative (Negative) Urine Blood Negative (Negative) Urine Nitrite Negative (Negative) Urine Bilirubin Negative (Negative) Urine Urobilinogen 1.0 A (0.2) mg/dL Ur Leukocyte Esterase Negative (Negative) U Hyaline Cast (Auto) NONE SEEN (0-2) /LPF Urine Microscopic RBC 0-2 (0-5) /HPF Urine Microscopic WBC 0-2 (0-5) /HPF Ur Epithelial Cells None Seen (None Seen) /HPF Urine Bacteria None Seen (None Seen) /HPF Urine Culture Reflexed NO (NO) - Progress Progress: improved Progress Note: 01/14/24 20:[address] Perez neurosurgery at [facility]. He reviewed the CAT scan images. He feels the subdural is chronic. He feels patient may be discharged home. He spoke to patient's daughter who is an RN. He advised outpatient follow-up for possible middle meningeal artery embolization. Patient's daughter feels comfortable discharging home. Patient will be discharged home with her . Patient agrees to use a walker. Patient currently feels well. She has a slight headache. Patient agrees not to take any NSAIDs including aspirin. Patient is not on blood thinners. Laboratory workup is essentially normal. Platelet levels are within normal limits. Coagulation profile is normal. We will discharge patient home per neurosurgery's request and daughters approval. They understand to return to our ED if symptoms worsen or if patient develops new or concerning symptoms. Portions of this note were created with voice recognition technology. There may be grammatical, spelling, punctuation or sound alike errors Complexity problem addressed is moderate acute complicated No critical care time Complexity of data reviewed and analyzed is extensive. Test ordered test reviewed results analyzed and correlated clinically with history and physical examination. He had an extensive conversation with the neurosurgeon who advised discharge. Risk of complication and or risk morbidity/mortality patient management is low Vital stable. Time spent to discharge patient is approximately 30 minutes. Plan of care established for shared decision making. No social determinants of health present impede follow-up. Portions of this note were created with voice recognition technology. There may be grammatical, spelling, punctuation or sound alike errors 01/14/24 20:08 Counseled pt/family regarding: lab results, diagnosis, rad results - Departure Departure Disposition: Home Clinical Impression: Subdural hematoma, Fall, Chronic subdural hematoma Condition: Stable Critical Care Time: No Referrals: CHARLES RUDD MD [Primary Care Provider] - Follow up/PCP as directed Additional Instructions: Use your walker. Hold all nonsteroidal medication including aspirin, NSAIDs like ibuprofen naproxen etc. follow-up with neurosurgeon Dr. Perez tomorrow. Your daughter has the telephone number written for follow-up Discharge/Care Plan MUSA KONG was seen on 01/14/24 in the Emergency Room. The patient was counseled regarding Diagnosis,Lab results, Imaging studies, need for follow up and when to return to the Emergency Room. Prescriptions given: Discharge Note I have spoken with the patient and/or caregivers. I have explained the patient's condition, diagnosis and treatment plan based on the information available to me at this time. I have answered the patient's and/or caregiver's questions and addressed any concerns. The patient and/or caregivers have as good understanding of the patient's diagnosis, condition and treatment plan as can be expected at this point. The vital signs have been stable. The patient's condition is stable and appropriate for discharge from the emergency department. The patient will pursue further outpatient evaluation with the primary care physician or other designated or consulting physician as outlined in the dischar ge instructions. The patient and/or caregivers are agreeable to this plan of care and follow-up instructions have been explained in detail. The patient and/or caregivers have received these instruction. The patient/and or caregivers are aware that any significant change in condition or worsening of symptoms should prompt an immediate return to this or the closest emergency department or call 911.
[2024-01-14 19:02] LABS: ALBUMIN 3.8 g/dL (3.5-5.0); ANION GAP 8.5 MEQ/L (5-15); BILIRUBIN,TOTAL 0.6 mg/dL (0.2-1.3); Calcium 9.1 mg/dL (8.4-10.2); Creatinine 1 1.05 mg/dL (0.52-1.04); EST GLOMERULAR FILTRATION RATE 53.4 ML/MIN; Potassium 3.5 mmol/L (3.5-5.1); Total Protein 6.6 g/dL (6.3-8.2)
[2024-01-14 19:04] LABS: ADD URINE CULTURE? NO (NO)
[2024-01-14] MEDS ORDERED: TYLENOL EXTRA STRENGTH 500 MG ONE (19:10)
[2024-01-14] MEDS: TYLENOL EXTRA STRENGTH 500 MG PO STA (19:13)
[2024-01-14 20:09] VITALS: BP 142/70; PULSE 68; RESP 22
== END 2024-01-14 20:23 | disposition home or self-care (01) ==
LOC: ED 17:40
DX: S06.5XAA Traumatic subdural hemorrhage with loss of consciousness status unknown, initial encounter (principal); W18.30XA Fall on same level, unspecified, initial encounter; E78.5 Hyperlipidemia, unspecified; I10 Essential (primary) hypertension; Z79.899 Other long term (current) drug therapy
CPT/HCPCS: 36000; 36415; 80053; 81001; 84484; 85025; 85610; 85730; 93005; 93041; 94760; 99284; A9270-GY

== ENCOUNTER 2024-03-24 16:32 | Observation (INO) | payer MEDICARE ==
--- NOTE | 2024-03-24 17:47 | ERPHSYRPT ---
- History of Present Illness Time Seen by Provider: 03/24/24 17:00 Source: patient Exam Limitations: no limitations Patient Subjective Stated Complaint: Fall Triage Nursing Assessment: Patient brought back to ED per w/c and transferred to bed with assist of 2. Patient A+O X 3. Patient's skin pale, warm and dry. Patient complains of a fall landing on right side and back around 0300 and layed on floor until 0900. Patient complains of right ankle, foot, leg, hip and lower back 07/09. Physician History: 83-year-old female presents to our ED status post fall. Patient complains of pain to her low back leg right hip. No pain at foot as stated on RN note. Patient is known to have chronic pain. Patient has a Dilaudid pain pump. Patient requesting additional pain medication. There is no BHT or LOC. No neck pain. Cervical spine cleared clinically. No fever no nausea no vomiting. The fall was not associated with any neuro cardiovascular symptomology. No chest pain or shortness of breath. No numbness tingling or weakness. Patient otherwise feels well. She voices no other complaints or concerns at this time. Portions of this note were created with voice recognition technology. There may be grammatical, spelling, punctuation or sound alike errors Timing/Duration: today Severity: moderate Modifying Factors: Improves With: other (Movement and palpation) Associated Symptoms: denies symptoms Allergies/Adverse Reactions: erythromycin base Adverse Reaction (Verified 03/24/24 16:56) Nausea esomeprazole [From Nexium] Adverse Reaction (Verified 03/24/24 16:56) Nausea etodolac [From Lodine] Adverse Reaction (Verified 03/24/24 16:56) Nausea oxaprozin [From Daypro] Adverse Reaction (Verified 03/24/24 16:56) Nausea oxycodone [From OxyContin] Adverse Reaction (Verified 03/24/24 16:56) Nausea rofecoxib [From Vioxx] Adverse Reaction (Verified 03/24/24 16:56) Nausea Sulfa (Sulfonamide Antibiotics) Adverse Reaction (Verified 03/24/24 16:56) Nausea Home Medications: Aspirin [Aspirin EC] 81 mg PO HS 12/07/16 [History] Omeprazole 20 MG [Prilosec 20 mg] 20 mg PO DAILY 12/07/16 [History] Pravastatin Sodium [Pravachol] 40 mg PO HS 12/07/16 [History] Duloxetine HCl 60 mg PO BID 01/01/19 [History] Multivitamin [Multivitamins] 1 each PO DAILY 01/01/19 [History] Potassium Chloride Tab* [Klor Con] 10 meq PO DAILY 09/27/20 [History] Furosemide 40 mg [Lasix 40 MG] 1 tab PO DAILY 10/29/23 [History] Hx Tetanus, Diphtheria Vaccination/Date Given: Yes Hx Influenza Vaccination/Date Given: Yes Hx Pneumococcal Vaccination/Date Given: Yes Immunizations Up to Date: Yes Travel Risk - International Travel Have you traveled outside of the country in past 3 weeks: No - Emerging Infectious Disease Are you exhibiting symptoms associated with any current EIDs: No - Review of Systems Constitutional: No Symptoms, No Fever, No Chills Eyes: No Symptoms Ears, Nose, & Throat: No Symptoms Respiratory: No Symptoms, No Cough, No Dyspnea Cardiac: No Symptoms, No Chest Pain, No Edema, No Syncope Abdominal/Gastrointestinal: No Symptoms, No Abdominal Pain, No Nausea, No Vomiting, No Diarrhea Genitourinary Symptoms: No Symptoms, No Dysuria Musculoskeletal: No Symptoms, No Back Pain, No Neck Pain Skin: No Symptoms, No Rash Neurological: No Symptoms, No Dizziness, No Focal Weakness, No Sensory Changes Psychological: No Symptoms Endocrine: No Symptoms Hematologic/Lymphatic: No Symptoms Immunological/Allergic: No Symptoms All Other Systems: Reviewed and Negative - Past Medical History Pertinent Past Medical History: Yes Neurological History: Other ENT History: No Pertinent History Cardiac History: High Cholesterol, Hypertension Respiratory History: No Pertinent History Endocrine Medical History: No Pertinent History Musculoskeletal History: Arthritis GI Medical History: No Pertinent History History: No Pertinent History Psycho-Social History: No Pertinent History Female Reproductive Disorders: No Pertinent History Other Medical History: SEEN DR JUNG IN PAST FOR KIDNEY ISSUES. ANEMIA. Implanted pain pump - Past Surgical History Past Surgical History: Yes Neuro Surgical History: No Pertinent History Cardiac: No Pertinent History Respiratory: No Pertinent History Gastrointestinal: No Pertinent History Genitourinary: No Pertinent History Musculoskeletal: Orthopedic Surgery, Other Female Surgical History: Hysterectomy, Section Other Surgical History: Carpal tunnel, L knee, stimulator in back, several back surgeries, right foot times 2, pain pump with dilaudid,colonoscopy. C-SECTIONX3 - Social History Smoking Status: Never smoker Exposure to second hand smoke: No Drug Use: none Patient Lives Alone: No (lives with ) - Social Determinants of Health Will the patient participate in the screening: Yes Do you worry about a steady place to live?: No Do you have any problems with any of the following?: No known problems In the past 12 months,have you had to go without utilities?: No Transportation Issues: No Has anyone in your support network made you feel unsafe?: No Have you or anyone in your house had to go without enough: No - Nursing Vital Signs Nursing Vital Signs: Initial Vital Signs Temperature 98.7 F 03/24/24 16:57 Pulse Rate 71 03/24/24 16:57 Respiratory Rate 18 03/24/24 16:57 Blood Pressure 126/76 03/24/24 16:57 O2 Sat by Pulse Oximetry 92 L 03/24/24 16:57 Pain Scale Pain Intensity 0 - Physical Exam General Appearance: no apparent distress, alert Eye Exam: PERRL/EOMI, eyes nml inspection Ears, Nose, Throat Exam: normal ENT inspection, TMs normal, pharynx normal, moist mucous membranes Neck Exam: normal inspection, non-tender, supple, full range of motion Respiratory Exam: normal breath sounds, lungs clear, airway intact, No respiratory distress Cardiovascular Exam: regular rate/rhythm, normal heart sounds, normal peripheral pulses Gastrointestinal/Abdomen Exam: soft, normal bowel sounds, No tenderness, No mass Back Exam: normal inspection, normal range of motion, No CVA tenderness, No vertebral tenderness Extremity Exam: normal inspection, normal range of motion, pelvis stable, other (Tenderness palpation right lower extremity/leg. The involved extremities neurovascular tact distally compartments are soft cap refill less than 2 seconds.) Neurologic Exam: alert, oriented x 3, cooperative, normal mood/affect, nml cerebellar function, nml station & gait, sensation nml, No motor deficits Skin Exam: normal color, warm, dry, No rash Lymphatic Exam: No adenopathy SpO2 Interpretation: normal SpO2: 92 O2 Delivery: Room Air - Course Nursing assessment & vital signs reviewed: Yes - CT Exams Lumbar Spine CT Interpretation: Tele-radiologist Report (Stable osteopenia, dextroscoliosis, advanced multilevel thoracolumbar degenerative disc disease grade 2 L4 listhesis, L5-S1 fusion hardware, epidural generator with leads, L4 vertebral hemangioma, 2 cm right lower quadrant abdominal metallic disc. No new acute findings) Lower Extremity CT Interpretation: Tele-radiologist Report (No comps. Osteopenia and mild degenerative joint disease no acute findings) Ordered Tests: Active Orders 24 hr Category Date Time Status Blair [Catheter-[place] Blair] STAT Care 03/24/24 18:16 Active LOWER EXTREMITY WO CONTRAST [CT] Stat Exams 03/24/24 17:16 Taken LOWER LEG Stat Exams 03/24/24 17:17 Taken LUMBAR SPINE W/O [CT] Stat Exams 03/24/24 17:16 Taken CBC W DIFF Stat Lab 03/24/24 19:00 Completed CMP Stat Lab 03/24/24 19:00 Completed UA W/RFX UR CULTURE Stat Lab 03/24/24 20:53 Ordered Medication Summary Discontinued Medications Generic Name Dose Route Start Last Admin Trade Name Freq PRN Reason Stop Dose Admin Hydromorphone HCl 0.5 mg 03/24/24 18:06 03/24/24 18:25 Hydromorphone 1 Mg/1ml Inj IV 03/24/24 18:07 0.5 mg STAT ONE Administration Hydromorphone HCl Confirm 03/24/24 18:24 Hydromorphone 1 Mg/1ml Inj Administered 03/24/24 18:25 Dose 1 mg .ROUTE .STK-MED ONE Lab/Rad Data: Laboratory Result Diagrams 03/24/24 19:00 03/24/24 19:00 Laboratory Results 03/24/24 03/24/24 Range/Units 19:00 19:00 WBC 6.7 (3.98-10.04) x10^3/uL RBC 3.45 L (3.93-5.22) x10^6/uL Hgb 10.1 L (11.2-15.7) g/dL Hct 32.2 L (34.1-44.9) % MCV 93.3 (79.4-94.8) fL MCH 29.3 (25.6-32.2) pg MCHC 31.4 L (32.2-35.5) g/dL RDW 13.6 (11.7-14.4) % Plt Count 275 (182-369) x10^3/uL MPV 10.2 (9.4-12.3) fL Gran % 73.4 H (34.0-71.1) % Immature Gran % (Auto) 0.3 (0.001-0.429) % Nucleat RBC Rel Count 0.0 (0.00-0.2) % Eos # (Auto) 0.03 L (0.04-0.36) x10^3/uL Immature Gran # (Auto) 0.02 (0.001-0.031) x10^3u/L Absolute Lymphs (auto) 1.04 L (1.18-3.74) x10^3/uL Absolute Monos (auto) 0.68 (0.24-0.86) x10^3/uL Absolute Nucleated RBC 0.00 (0.00-0.012) x10^3u/L Lymphocytes % 15.6 L (19.3-51.7) % Monocytes % 10.2 (4.7-12.5) % Eosinophils % 0.4 L (0.7-5.8) % Basophils % 0.1 (0.1-1.2) % Absolute Granulocytes 4.90 (1.56-6.13) x10^3/uL Basophils # 0.01 (0.01-0.08) x10^3/uL Sodium 137 (135-145) mmol/L Potassium 3.4 L (3.5-5.1) mmol/L Chloride 100 (98-107) mmol/L Carbon Dioxide 28 (22-30) mmol/L Anion Gap 12.1 (5-15) MEQ/L BUN 17 (7-17) mg/dL Creatinine 0.90 (0.52-1.04) mg/dL Estimated GFR 64.2 ML/MIN Glucose 98 (74-106) mg/dL Calcium 9.1 (8.4-10.2) mg/dL Total Bilirubin 0.80 (0.2-1.3) mg/dL AST 70 H (14-36) U/L ALT 26 (0-35) U/L Alkaline Phosphatase 100 (38-126) U/L Serum Total Protein 7.0 (6.3-8.2) g/dL Albumin 3.9 (3.5-5.0) g/dL - Progress Progress: improved Progress Note: 83-year-old female presents to our ED for evaluation of pain to her low back, right hip right, lower leg. Patient had a mechanical fall at home. Patient states she is prone to falls. Fall was not associated with any neuro cardiovascular symptomology. CT lumbar spine and right hip negative for fracture dislocation. However right leg x-ray reveals a small nondisplaced medial tibial plateau fracture and chronic loosening of the tibial prosthesis. Also there is a nondisplaced lateral malleolus fracture. Patient lives with her . She is unable to get around. states that he would not be able to help her at home to the degree that she will need help. He is reque sting we admit patient. Patient will be admitted for orthopedic evaluation and possible physical therapy. Daughter at bedside. They agree to admission [facility] for further evaluation and treatment. Patient is now resting comfortably. She received Dilaudid for pain control. She voices no other complaints or concerns at this time. Portions of this note were created with voice recognition technology. There may be grammatical, spelling, punctuation or sound alike errors Complexity problem addressed is moderate acute complicated. No critical care time. Complex of data reviewed and analyzed is extensive. Test ordered test reviewed results analyzed and correlated clinically with history and physical exam. Risk of complication and or risk morbidity/mortality patient management is high. Patient requires hospitalization for further evaluation and treatment. Vital stable. Time spent to admit patient is approximately 20 minutes. Plan of care established for shared decision making. No social determinants of health present impede follow-up. Portions of this note were created with voice recognition technology. There may be grammatical, spelling, punctuation or sound alike errors 03/24/24 20:49 03/24/24 20:50 Case discussed with hospitalist Dr. navas accepts patient 9:01 PM. 03/24/24 21:01 Counseled pt/family regarding: lab results, diagnosis - Departure Departure Disposition: Home Clinical Impression: Fall, Lumbosacral strain, Fracture of right ankle, lateral malleolus, Tibial plateau fracture Condition: Stable Critical Care Time: No Referrals: CHARLES RUDD MD [Primary Care Provider] - Follow up/PCP as directed
[2024-03-24] MEDS ORDERED: Hydromorphone 1 mg/ml Injection ONE (18:24)
[2024-03-24] MEDS: Hydromorphone 1 mg/ml Injection IV ONE (18:25)
[2024-03-24 20:53] LABS: BASOPHIL % 0.1 % (0.1-1.2); Basophil (Absolute #) 0.01 x10^3/uL (0.01-0.08); Eosinophil % 0.4 % (0.7-5.8); Eosinophil (Absolute #) 0.03 x10^3/uL (0.04-0.36); Hematocrit 32.2 % (34.1-44.9); Hemoglobin 10.1 g/dL (11.2-15.7); IMMATURE GRAN # 0.02 x10^3u/L (0.001-0.031); IMMATURE GRAN % 0.3 % (0.001-0.429); Lymphocyte (Absolute #) 1.04 x10^3/uL (1.18-3.74); Lymphocytes % 15.6 % (19.3-51.7); Mean Cell Volume 93.3 fL (79.4-94.8); Mean Corpuscular Hemoglobin 29.3 pg (25.6-32.2); Mean Corpuscular Hgb Concent. 31.4 g/dL (32.2-35.5); Mean Platelet Volume 10.2 fL (9.4-12.3); Monocyte (Absolute #) 0.68 x10^3/uL (0.24-0.86); Monocytes % 10.2 % (4.7-12.5); Neutrophil % 73.4 % (34.0-71.1); Platelet Count 275 x10^3/uL (182-369); Red Blood Count 3.45 x10^6/uL (3.93-5.22); Red Cell Distribution Width 13.6 % (11.7-14.4); White Blood Count 6.7 x10^3/uL (3.98-10.04)
[2024-03-24 21:01] LABS: ALBUMIN 3.9 g/dL (3.5-5.0); ANION GAP 12.1 MEQ/L (5-15); BILIRUBIN,TOTAL 0.8 mg/dL (0.2-1.3); Calcium 9.1 mg/dL (8.4-10.2); Creatinine 1 0.9 mg/dL (0.52-1.04); EST GLOMERULAR FILTRATION RATE 64.2 ML/MIN; Potassium 3.4 mmol/L (3.5-5.1)
[2024-03-24 21:47] LABS: Appearance Clear (Clear); Bacteria None Seen /HPF (None Seen); Bilirubin Negative (Negative); Blood Negative (Negative); Epithelial Cells Rare /HPF (None Seen); Glucose, Urine Negative (Negative); Hyaline Casts NONE SEEN /LPF (0-2); Ketones Negative (Negative); Leukocyte Esterase Trace (Negative); Nitrite Negative (Negative); Protein,Urine Dip Negative (Negative); RBC 0-2 /HPF (0-5); Urobilinogen 0.2 mg/dL (0.2)
[2024-03-24 22:03] LABS: ADD URINE CULTURE? NO (NO)
--- NOTE | 2024-03-24 22:59 | PCM.HP ---
History of Present Illness - Chief Complaint Chief Complaint: fracture Date: 03/24/24 History of Present Illness: Patient 83 years old very pleasant lady with past medical history significant for hypertension hyperlipidemia chronic arthritis multiple back surgeries s/p Dilaudid pump insertion lives at home with spouse quite independent her daily life reported having more frequent falls lately. She brought by for another fall at home that seems mechanical patient told me that while she was going towards her kitchen she has to possible bathroom where she got slipped. Since then she is complaining of pain in her right hip, lower back and right lower leg. She further told me that most of her falls associated with tripping/sleeping/and tingling with some objects. Denied having any dizziness, chest pain, palpitations and shortness of breath. No other GI urinary symptoms reported. In the ER vital signs were stable. She was afebrile. As far as lab workup consent all came out unremarkable.CT lumbar spine and right hip negative for fracture dislocation. However right leg x-ray reveals a small nondisplaced medial tibial plateau fracture and chronic loosening of the tibial prosthesis. Also there is a nondisplaced lateral malleolus fracture. She was admitted for pain management and Ortho consultation in the morning - Review of Systems All Other Systems: Reviewed and Negative (14 systems reviewed and marked -ve except mentioned in [place]) Medications & Allergies Home Medications: Home Medication List Omeprazole 20 MG [Prilosec 20 mg] 20 mg PO DAILY 12/07/16 [History Confirmed 03/24/24] Pravastatin Sodium [Pravachol] 40 mg PO HS 12/07/16 [History Confirmed 03/24/24] Duloxetine HCl 60 mg PO BID 01/01/19 [History Confirmed 03/24/24] Multivitamin [Multivitamins] 1 each PO DAILY 01/01/19 [History Confirmed 03/24/24] Potassium Chloride Tab* [Klor Con] 10 meq PO DAILY 09/27/20 [History Confirmed 03/24/24] Furosemide 40 mg [Lasix 40 MG] 1 tab PO DAILY 10/29/23 [History Confirmed 03/24/24] Allergies/Adverse Reactions: Allergies Allergy/AdvReac Type Severity Reaction Status Date / Time erythromycin base AdvReac Nausea Verified 03/24/24 16:56 esomeprazole [From Nexium] AdvReac Nausea Verified 03/24/24 16:56 etodolac [From Lodine] AdvReac Nausea Verified 03/24/24 16:56 oxaprozin [From Daypro] AdvReac Nausea Verified 03/24/24 16:56 oxycodone [From OxyContin] AdvReac Nausea Verified 03/24/24 16:56 rofecoxib [From Vioxx] AdvReac Nausea Verified 03/24/24 16:56 Sulfa (Sulfonamide AdvReac Nausea Verified 03/24/24 16:56 Antibiotics) - Past Medical History Past Medical History: Yes Neurological History: Other ENT History: No Pertinent History Cardiac History: High Cholesterol, Hypertension Respiratory History: No Pertinent History Endocrine Medical History: No Pertinent History Musculoskelatal History: Arthritis GI Medical History: No Pertinent History History: No Pertinent History Pyscho-Social History: No Pertinent History Reproductive Disorders: No Pertinent History Comment: SEEN DR JUNG IN PAST FOR KIDNEY ISSUES. ANEMIA. Implanted pain pump - Past Surgical History Past Surgical History: Yes Neuro Surgical History: No Pertinent History Cardiac History: No Pertinent History Respiratory Surgery: No Pertinent History GI Surgical History: No Pertinent History Genitourinary Surgical Hx: No Pertinent History Musculskeletal Surgical Hx: Orthopedic Surgery, Other Female Surgical History: Hysterectomy, Section Other Surgical History: Carpal tunnel, L knee, R knee twice, stimulator in back, several back surgeries, right foot times 2, pain pump with dilaudid,colonoscopy. C-SECTIONX3 Significant Family History: no pertinent family hx (No family history pertaining to this admission reported.) - Social History Smoking Status: Never smoker Exposure to second hand smoke: No Alcohol: None Drug Use: none - Social Determinants of Health Will the patient participate in the screening: Yes Do you worry about a steady place to live?: No Do you have any problems with any of the following?: No known problems In the past 12 months,have you had to go without utilities?: No Have you or anyone in your house had to go without enough: No Transportation Issues: No Has anyone in your support network made you feel unsafe?: No Does the patient want assistance with any of the above?: No - Physical Exam Vital Signs: Vital Signs - 24 hr Temp Pulse Resp BP BP Pulse Ox 03/24/24 22:07 96.8 F 84 16 122/59 94 L 03/24/24 21:34 92 L 03/24/24 21:30 83 16 113/62 03/24/24 21:00 90 16 106/58 96 03/24/24 20:30 87 22 118/71 97 03/24/24 20:00 93 H 29 H 122/67 03/24/24 19:30 87 20 123/67 03/24/24 19:00 86 21 129/73 03/24/24 16:57 98.7 F 71 18 126/76 92 L Additional Findings: HEENT Old aged, average built in no distress NECK Supple,no thyromegaly, CVS S1+S2 + 0, no murmers RESP Bilateral equal air entry without Crepts/Wheezes heard GIT Soft non tender,non distended Skin, No rah, no Bruises LEGS 2+ Edema PSYCH Normal,m ood, judgement and insight NEURO AOX3, no focal deficit 03/24/24 23:15 Results - Labs Lab/Micro Results: Lab Results-Last 24 Hours 03/24/24 03/24/24 03/24/24 Range/Units 19:00 19:00 20:53 WBC 6.7 (3.98-10.04) x10^3/uL RBC 3.45 L (3.93-5.22) x10^6/uL Hgb 10.1 L (11.2-15.7) g/dL Hct 32.2 L (34.1-44.9) % MCV 93.3 (79.4-94.8) fL MCH 29.3 (25.6-32.2) pg MCHC 31.4 L (32.2-35.5) g/dL RDW 13.6 (11.7-14.4) % Plt Count 275 (182-369) x10^3/uL MPV 10.2 (9.4-12.3) fL Gran % 73.4 H (34.0-71.1) % Immature Gran % (Auto) 0.3 (0.001-0.429) % Nucleat RBC Rel Count 0.0 (0.00-0.2) % Eos # (Auto) 0.03 L (0.04-0.36) x10^3/uL Immature Gran # (Auto) 0.02 (0.001-0.031) x10^3u/L Absolute Lymphs (auto) 1.04 L (1.18-3.74) x10^3/uL Absolute Monos (auto) 0.68 (0.24-0.86) x10^3/uL Absolute Nucleated RBC 0.00 (0.00-0.012) x10^3u/L Lymphocytes % 15.6 L (19.3-51.7) % Monocytes % 10.2 (4.7-12.5) % Eosinophils % 0.4 L (0.7-5.8) % Basophils % 0.1 (0.1-1.2) % Absolute Granulocytes 4.90 (1.56-6.13) x10^3/uL Basophils # 0.01 (0.01-0.08) x10^3/uL Sodium 137 (135-145) mmol/L Potassium 3.4 L (3.5-5.1) mmol/L Chloride 100 (98-107) mmol/L Carbon Dioxide 28 (22-30) mmol/L Anion Gap 12.1 (5-15) MEQ/L BUN 17 (7-17) mg/dL Creatinine 0.90 (0.52-1.04) mg/dL Estimated GFR 64.2 ML/MIN Glucose 98 (74-106) mg/dL Calcium 9.1 (8.4-10.2) mg/dL Total Bilirubin 0.80 (0.2-1.3) mg/dL AST 70 H (14-36) U/L ALT 26 (0-35) U/L Alkaline Phosphatase 100 (38-126) U/L Serum Total Protein 7.0 (6.3-8.2) g/dL Albumin 3.9 (3.5-5.0) g/dL Urine Color Yellow (Yellow) Urine Appearance Clear (Clear) Urine pH 7.0 (4.6-8.0) Ur Specific [place] 1.010 (1.005-1.030) Urine Protein Negative (Negative) Urine Glucose (UA) Negative (Negative) mg/dL Urine Ketones Negative (Negative) Urine Blood Negative (Negative) Urine Nitrite Negative (Negative) Urine Bilirubin Negative (Negative) Urine Urobilinogen 0.2 (0.2) mg/dL Ur Leukocyte Esterase Trace A (Negative) U Hyaline Cast (Auto) NONE SEEN (0-2) /LPF Urine Microscopic RBC 0-2 (0-5) /HPF Urine Microscopic WBC 3-5 (0-5) /HPF Ur Epithelial Cells Rare (None Seen) /HPF Urine Bacteria None Seen (None Seen) /HPF Urine Culture Reflexed NO (NO) - Radiology Impressions Radiology Exams & Impressions: Radiology Procedures Category Date Time Status LOWER EXTREMITY WO CONTRAST [CT] Stat Exams 03/24/24 17:16 Taken LOWER LEG Stat Exams 03/24/24 17:17 Taken LUMBAR SPINE W/O [CT] Stat Exams 03/24/24 17:16 Taken Assessment/Plan (1) Fracture of right ankle, lateral malleolus Current Visit: Yes Status: Acute Code(s): S82.61XA - DISP FX OF LATERAL MALLEOLUS OF RIGHT FIBULA, INIT (2) Lumbosacral strain Current Visit: Yes Status: Acute Code(s): S39.012A - STRAIN OF MUSCLE, FASCIA AND TENDON OF LOWER BACK, INIT (3) Tibial plateau fracture Current Visit: Yes Status: Acute Code(s): S82.143A - DISPLACED BICONDYLAR FRACTURE OF UNSP TIBIA, INIT Telemedicine Encounter - Telemedicine Encounter Telemedicine Encounter: The entirety of this encounter was performed via Telemedicine" Fall at home Seems mechanical as patient got slipped in the bathroom CT lower back and hip remained unremarkable Continue pain management with Dilaudid 0.5 mg every 4 hours as per need PT OT evaluation before discharge Right Leg fracture right leg x-ray reveals a small nondisplaced medial tibial plateau fracture and nondisplaced lateral malleolus fracture. CT right lower extremity for further evaluation Orthopedic will see patient in the morning DVT prophylaxis with Lovenox Pain management Hypertension Blood pressure towards softe rside RHolding home Bp meds Chronic back pain Patient is s/p multiple surgeries on her back She is having Dilaudid pump in place but that is not working at this time I will continue intermittent Dilaudid as per needed for pain Chronic lower extremity swelling She told me she follows up with her PCP regularly for LE swelling ECHO from Sep 2023 showed EF > 60 % Continue home Lasix 40 mg daily Keep legs elevated DVT prophylaxis SCD/Lovenox GI prophylaxis Protonix CODE STATUS full Discharge planning pending clinical stability. I have reviewed patient lab vitals and imaging in detail all question and concerns were addressed
[2024-03-24] MEDS: TYLENOL 325 MG PO PRN (23:16)
[2024-03-24] MEDS: Hydromorphone 1 mg/ml Injection IV PRN (23:17)
[2024-03-25 04:45] LABS: Hematocrit 28.3 % (34.1-44.9); Hemoglobin 9.2 g/dL (11.2-15.7); Mean Cell Volume 90.1 fL (79.4-94.8); Mean Corpuscular Hemoglobin 29.3 pg (25.6-32.2); Mean Corpuscular Hgb Concent. 32.5 g/dL (32.2-35.5); Platelet Count 239 x10^3/uL (182-369); Red Blood Count 3.14 x10^6/uL (3.93-5.22); Red Cell Distribution Width 13.9 % (11.7-14.4); White Blood Count 5.2 x10^3/uL (3.98-10.04)
[2024-03-25 05:14] LABS: ANION GAP 5.9 MEQ/L (5-15); Calcium 8.7 mg/dL (8.4-10.2); Creatinine 1 0.89 mg/dL (0.52-1.04); EST GLOMERULAR FILTRATION RATE 65.1 ML/MIN
[2024-03-25 05:32] LABS: Potassium 2.8 mmol/L (3.5-5.1)
--- NOTE | 2024-03-25 05:44 | PCM.NOTE ---
Date and Time: 03/25/24 0539 Subjective Assessment: 83 years old very pleasant lady with past medical history significant for hypertension hyperlipidemia chronic arthritis multiple back surgeries s/p Dilaudid pump insertion lives at home with spouse quite independent her daily life admitted 03/24/24 with fracture of the right ankle, lumosacral strain, and tibial plateau fracture of experiencing a ground level fall as she slipped in the bathroom at home. Ortho consulted. 03/25/24: Met with patient bedside. Endorses 8/10 right ankle pain. Patient has active diluadid pain pump which is not managing pain. Will add [place]. Ortho consult pending. Potassium low at 2.8 this morning- will replenish. Denies fever,cough, sob, cp, abdominal pain, SMITH, dizziness, N/V/D. - Review of Systems Constitutional: No Symptoms Eyes: No Symptoms Ears, Nose, & Throat: No Symptoms Respiratory: No Symptoms Cardiac: No Symptoms Abdominal/Gastrointestinal: No Symptoms Genitourinary Symptoms: No Symptoms Musculoskeletal: Back Pain (chronic -implanted pain pump), Joint Pain Skin: No Symptoms Neurological: No Symptoms Psychological: No Symptoms Endocrine: No Symptoms Hematologic/Lymphatic: No Symptoms Immunological/Allergic: No Symptoms Objective Exam General Appearance: no apparent distress Neurologic Exam: alert, oriented x 3, cooperative Skin Exam: normal color Eye Exam: PERRL Ears, Nose, Throat Exam: normal ENT inspection Respiratory Exam: normal breath sounds, lungs clear Cardiovascular Exam: regular rate/rhythm, normal heart sounds Gastrointestinal/Abdomen Exam: soft, normal bowel sounds Extremity Exam: limited range of motion (RLE) Back Exam: normal inspection Objective Data Vital Signs: Vital Signs - 24 hr Temp Pulse Resp BP BP Pulse Ox 03/25/24 04:00 97.3 F 72 18 104/52 99 03/25/24 00:00 16 03/24/24 23:36 97 03/24/24 22:07 96.8 F 84 16 122/59 94 L 03/24/24 21:34 92 L 03/24/24 21:30 83 16 113/62 03/24/24 21:00 90 16 106/58 96 03/24/24 20:30 87 22 118/71 97 03/24/24 20:00 93 H 29 H 122/67 03/24/24 19:30 87 20 123/67 03/24/24 19:00 86 21 129/73 03/24/24 16:57 98.7 F 71 18 126/76 92 L Pain Assessment - Last Documented Pain Intensity 7 Pain Scale Used 0-10 Pain Scale Intake and Output: Intake & Output 03/22/24 03/23/24 03/24/24 03/25/24 11:59 11:59 11:59 11:59 Intake Total 240 Output Total 2350 Balance -2110 Weight 76 kg Lab Results: Lab Results-Last 24 Hours 03/24/24 03/24/24 03/24/24 Range/Units 19:00 19:00 20:53 WBC 6.7 (3.98-10.04) x10^3/uL RBC 3.45 L (3.93-5.22) x10^6/uL Hgb 10.1 L (11.2-15.7) g/dL Hct 32.2 L (34.1-44.9) % MCV 93.3 (79.4-94.8) fL MCH 29.3 (25.6-32.2) pg MCHC 31.4 L (32.2-35.5) g/dL RDW 13.6 (11.7-14.4) % Plt Count 275 (182-369) x10^3/uL MPV 10.2 (9.4-12.3) fL Gran % 73.4 H (34.0-71.1) % Immature Gran % (Auto) 0.3 (0.001-0.429) % Nucleat RBC Rel Count 0.0 (0.00-0.2) % Eos # (Auto) 0.03 L (0.04-0.36) x10^3/uL Immature Gran # (Auto) 0.02 (0.001-0.031) x10^3u/L Absolute Lymphs (auto) 1.04 L (1.18-3.74) x10^3/uL Absolute Monos (auto) 0.68 (0.24-0.86) x10^3/uL Absolute Nucleated RBC 0.00 (0.00-0.012) x10^3u/L Lymphocytes % 15.6 L (19.3-51.7) % Monocytes % 10.2 (4.7-12.5) % Eosinophils % 0.4 L (0.7-5.8) % Basophils % 0.1 (0.1-1.2) % Absolute Granulocytes 4.90 (1.56-6.13) x10^3/uL Basophils # 0.01 (0.01-0.08) x10^3/uL Sodium 137 (135-145) mmol/L Potassium 3.4 L (3.5-5.1) mmol/L Chloride 100 (98-107) mmol/L Carbon Dioxide 28 (22-30) mmol/L Anion Gap 12.1 (5-15) MEQ/L BUN 17 (7-17) mg/dL Creatinine 0.90 (0.52-1.04) mg/dL Estimated GFR 64.2 ML/MIN Glucose 98 (74-106) mg/dL Calcium 9.1 (8.4-10.2) mg/dL Total Bilirubin 0.80 (0.2-1.3) mg/dL AST 70 H (14-36) U/L ALT 26 (0-35) U/L Alkaline Phosphatase 100 (38-126) U/L Serum Total Protein 7.0 (6.3-8.2) g/dL Albumin 3.9 (3.5-5.0) g/dL Urine Color Yellow (Yellow) Urine Appearance Clear (Clear) Urine pH 7.0 (4.6-8.0) Ur Specific [place] 1.010 (1.005-1.030) Urine Protein Negative (Negative) Urine Glucose (UA) Negative (Negative) mg/dL Urine Ketones Negative (Negative) Urine Blood Negative (Negative) Urine Nitrite Negative (Negative) Urine Bilirubin Negative (Negative) Urine Urobilinogen 0.2 (0.2) mg/dL Ur Leukocyte Esterase Trace A (Negative) U Hyaline Cast (Auto) NONE SEEN (0-2) /LPF Urine Microscopic RBC 0-2 (0-5) /HPF Urine Microscopic WBC 3-5 (0-5) /HPF Ur Epithelial Cells Rare (None Seen) /HPF Urine Bacteria None Seen (None Seen) /HPF Urine Culture Reflexed NO (NO) 03/25/24 03/25/24 Range/Units 04:18 04:18 WBC 5.2 (3.98-10.04) x10^3/uL RBC 3.14 L (3.93-5.22) x10^6/uL Hgb 9.2 L (11.2-15.7) g/dL Hct 28.3 L (34.1-44.9) % MCV 90.1 (79.4-94.8) fL MCH 29.3 (25.6-32.2) pg MCHC 32.5 (32.2-35.5) g/dL RDW 13.9 (11.7-14.4) % Plt Count 239 (182-369) x10^3/uL MPV 10.0 (9.4-12.3) fL Gran % (34.0-71.1) % Immature Gran % (Auto) (0.001-0.429) % Nucleat RBC Rel Count (0.00-0.2) % Eos # (Auto) (0.04-0.36) x10^3/uL Immature Gran # (Auto) (0.001-0.031) x10^3u/L Absolute Lymphs (auto) (1.18-3.74) x10^3/uL Absolute Monos (auto) (0.24-0.86) x10^3/uL Absolute Nucleated RBC (0.00-0.012) x10^3u/L Lymphocytes % (19.3-51.7) % Monocytes % (4.7-12.5) % Eosinophils % (0.7-5.8) % Basophils % (0.1-1.2) % Absolute Granulocytes (1.56-6.13) x10^3/uL Basophils # (0.01-0.08) x10^3/uL Sodium 137 (135-145) mmol/L Potassium 2.8 L* (3.5-5.1) mmol/L Chloride 99 (98-107) mmol/L Carbon Dioxide 35 H (22-30) mmol/L Anion Gap 5.9 (5-15) MEQ/L BUN 15 (7-17) mg/dL Creatinine 0.89 (0.52-1.04) mg/dL Estimated GFR 65.1 ML/MIN Glucose 102 (74-106) mg/dL Calcium 8.7 (8.4-10.2) mg/dL Total Bilirubin (0.2-1.3) mg/dL AST (14-36) U/L ALT (0-35) U/L Alkaline Phosphatase (38-126) U/L Serum Total Protein (6.3-8.2) g/dL Albumin (3.5-5.0) g/dL Urine Color (Yellow) Urine Appearance (Clear) Urine pH (4.6-8.0) Ur Specific [place] (1.005-1.030) Urine Protein (Negative) Urine Glucose (UA) (Negative) mg/dL Urine Ketones (Negative) Urine Blood (Negative) Urine Nitrite (Negative) Urine Bilirubin (Negative) Urine Urobilinogen (0.2) mg/dL Ur Leukocyte Esterase (Negative) U Hyaline Cast (Auto) (0-2) /LPF Urine Microscopic RBC (0-5) /HPF Urine Microscopic WBC (0-5) /HPF Ur Epithelial Cells (None Seen) /HPF Urine Bacteria (None Seen) /HPF Urine Culture Reflexed (NO) Radiology Exams: Radiology Procedures Category Date Time Status LOWER EXTREMITY WO CONTRAST [CT] Stat Exams 03/24/24 17:16 Taken LOWER LEG Stat Exams 03/24/24 17:17 Taken LUMBAR SPINE W/O [CT] Stat Exams 03/24/24 17:16 Taken Multi-Disciplinary Progress Notes: Multi-Disciplinary Progress Notes 03/24/24 23:37 Respiratory Note by Nayely Delatorre Patient arrived to floor from ED with IS orders. Patient is resting comfortably. RT will follow in AM to start IS with patient. Initialized on 03/24/24 23:37 - END OF NOTE Assessment/Plan (1) Fracture of right ankle, lateral malleolus Current Visit: Yes Status: Acute Assessment & Plan: -secondary to ground level fall at home -Pain control - patient does have active diluadid pain pump - dc iv diluadid add [place]/narcan -Ortho consult pending -CT LE through right hip -Negative acute fracture/dislocation. Incidental chronic findings -Xray right lower leg showingnondisplaced acute fracture medial tibial plateau. Also nondisplaced acute hairline fracture lateral malleolus. -Lumbar spine Impression: 1. Again moderate/advanced multilevel degenerative spondylosis. Again greatest extent at L4-L5 where there is spinal canal and bilateral foraminal stenosis. 2. Stable osteopenia, L4 vertebral hemangioma, dextrorotoscoliosis, and postsurgical changes. 3. No new/acute findings. Code(s): S82.61XA - DISP FX OF LATERAL MALLEOLUS OF RIGHT FIBULA, INIT (2) Fall Current Visit: Yes Status: Acute Assessment & Plan: -Ground level fall at home -CT LE through right hip -Negative acute fracture/dislocation. Incidental chronic findings -Xray right lower leg showingnondisplaced acute fracture medial tibial plateau. Also nondisplaced acute hairline fracture lateral malleolus. -Lumbar spine Impression: 1. Again moderate/advanced multilevel degenerative spondylosis. Again greatest extent at L4-L5 where there is spinal canal and bilateral foraminal stenosis. 2. Stable osteopenia, L4 vertebral hemangioma, dextrorotoscoliosis, and postsurgical changes. 3. No new/acute findings. -PT/OT -Ortho consult pending Code(s): W19.XXXA - UNSPECIFIED FALL, INITIAL ENCOUNTER (3) Lumbosacral strain Current Visit: Yes Status: Acute Assessment & Plan: -Lumbar spine Impression: 1. Again moderate/advanced multilevel degenerative spondylosis. Again greatest extent at L4-L5 where there is spinal canal and bilateral foraminal stenosis. 2. Stable osteopenia, L4 vertebral hemangioma, dextrorotoscoliosis, and postsurgical changes. 3. No new/acute findings. -Pain control Code(s): S39.012A - STRAIN OF MUSCLE, FASCIA AND TENDON OF LOWER BACK, INIT (4) Tibial plateau fracture Current Visit: Yes Status: Acute Assessment & Plan: -Xray right lower leg showingnondisplaced acute fracture medial tibial plateau. Also nondisplaced acute hairline fracture lateral malleolus. -Ortho consulted, pending recommendations -NPO -Hold Lovenox -pain control Code(s): S82.143A - DISPLACED BICONDYLAR FRACTURE OF UNSP TIBIA, INIT (5) Hypertension Current Visit: No Status: Acute Assessment & Plan: -stable - continue home meds when diet resumed Code(s): I10 - ESSENTIAL (PRIMARY) HYPERTENSION (6) Hypokalemia Current Visit: Yes Status: Acute Assessment & Plan: -K+ at 2.8 this morning, will replenish -tele Code(s): E87.6 - HYPOKALEMIA (7) Chronic back pain Current Visit: Yes Status: Acute Assessment & Plan: -Noted with implanted diluadid pain pump- active - RN called pain specialist for pump settings for pharmacy review -d/c IV dilaudid -Narcan prn added Code(s): M54.9 - DORSALGIA, UNSPECIFIED; G89.29 - OTHER CHRONIC PAIN (8) Bilateral lower extremity edema Current Visit: Yes Status: Acute Assessment & Plan: -continue home lasix Code(s): R60.0 - LOCALIZED EDEMA
[2024-03-25] MEDS ORDERED: Sodium Chloride 0.9% 500 ML 500 ML IV ONE (05:47)
[2024-03-25] MEDS: POTASSIUM CHLORIDE 20 mEq IN WATER 100ML 20 MEQ/100 ML BAG IV ONE ×2 (05:53→14:33)
[2024-03-25] MEDS: Sodium Chloride 0.9% 500 ML 500 ML IV SCH (06:29)
--- NOTE | 2024-03-25 08:47 | XRAY ---
Indication: Pain following fall. Multiple contiguous axial images obtained through the lumbar spine. Sagittal and coronal reformatted images obtained. Comparison: April 10, 2022. Osseous structures remain demineralized with stable L4 vertebral hemangioma. Again moderate/advanced multilevel thoracolumbar degenerative disc disease as evidenced by disc space loss, endplate sclerosis/spurring, and vacuum disc phenomena. Stable bilateral L4-L5 degenerative facet arthropathy, L5-S1 laminectomy, and L5-S1 fusion with intervertebral cages. No obvious large disc herniation. Again partially visualized spinal stimulator device with leads. Sagittal and coronal reformatted images again demonstrates moderate dextrorotoscoliosis centered at thoracolumbar junction and L4 grade 2 anterolisthesis with subsequent spinal canal and bilateral foraminal stenosis. No acute compression fracture or new subluxation. Visualized noncontrasted soft tissues again demonstrates mild aortoiliac calcifications. Scattered colonic radiopacities either ingested medication/bismuth or barium. Impression: 1. Again moderate/advanced multilevel degenerative spondylosis. Again greatest extent at L4-L5 where there is spinal canal and bilateral foraminal stenosis. 2. Stable osteopenia, L4 vertebral hemangioma, dextrorotoscoliosis, and postsurgical changes. 3. No new/acute findings.
--- NOTE | 2024-03-25 08:49 | XRAY ---
Indication: Pain following fall. Comparison: None 2 view right lower leg demonstrates osteopenia and nondisplaced acute fracture medial tibial plateau. Also nondisplaced acute hairline fracture lateral malleolus. 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 Mild diffuse soft tissue swelling/edema. No other bony, articular, or soft tissue abnormalities.
--- NOTE | 2024-03-25 08:55 | XRAY ---
Indication: Pain following fall. Multiple contiguous axial images obtained through the right hip. Sagittal and coronal reformatted images obtained. Comparison: None Osseous structures demineralized consistent with patient's age. Right hip demonstrates mild/moderate degenerative changes without abnormal large effusion. No acute fracture, suspicious bony lesions, or osseous destructive process. Tiny spurring right ischial tuberosity. Visualized noncontrasted soft tissues demonstrates round metallic density in right lower quadrant of the abdomen. Sigmoid radiopacities either ingested medication/bismuth or barium. Mild scattered arteriosclerotic disease. Impression: Negative acute fracture/dislocation. Incidental chronic findings.
[2024-03-25] MEDS: Cymbalta 30 MG Capsule PO SCH (09:57)
[2024-03-25] MEDS: Lasix 40 MG PO SCH (09:57)
[2024-03-25] MEDS: NORCO 5/325 MG PO PRN (09:57)
[2024-03-25] MEDS: Protonix 40MG Tablet PO SCH (09:58)
[2024-03-25] MEDS: THERAGRAN MULTIVITAMIN PO SCH (09:58)
[2024-03-25] MEDS ORDERED: NON-FORMULARY ITEM (Omeprazole 20 Mg [Prilosec 20 Mg] 20 MG Capsule.Dr) PO SCH (10:00)
[2024-03-25] MEDS ORDERED: NON-FORMULARY ITEM (Duloxetine Hcl [Duloxetine Hcl] 60 MG Capsule.Dr) PO SCH (10:00)
[2024-03-25] MEDS ORDERED: NON-FORMULARY ITEM (Multivitamin [Multivitamins] 1 EACH Capsule) PO SCH (10:00)
[2024-03-25] MEDS ORDERED: Narcan 0.4 MG/ML IV PRN (12:38)
--- NOTE | 2024-03-25 13:52 | XRAY ---
Indication: Fall. Fracture. Comparison: None 3 view right ankle demonstrates osteopenia, tiny plantar heel spur, moderate diffuse soft tissue swelling, and mild scattered vascular calcifications. Lateral malleolus fracture seen on tibia/fibula exam one day earlier not appreciated.
--- NOTE | 2024-03-25 14:28 | XRAY ---
Indication: Fall. Fracture. Multiple contiguous axial images obtained through the right tibia/fibula without contrast. Knee and ankle joint included. Sagittal and coronal reformatted images obtained. Comparison: Right tibia/fibula radiograph one day earlier. Osseous structures demineralized. There is extreme beam artifact from total knee arthroplasty limiting exam. Shaft of tibial prosthesis demonstrates surrounding radiolucency greatest distally suggesting loosening. Tip of tibial prosthesis also minimally translated laterally with adjacent reactive bony cortical thickening suggesting chronic loosening. Coronal reformatted images demonstrates nondisplaced vertical fracture of the remnant medial femoral condyle of uncertain chronicity. This was not included in [id number] on comparison radiograph. Remnant medial tibial plateau also demonstrates similar nondisplaced corner fracture of uncertain chronicity, best seen on coronal reformatted images. Small knee effusion versus hemarthrosis. Tiny nondepressed acute cortical fracture anterior talus superiolaterally, best seen on axial and sagittal imaging. No suspicious bony lesions. Incidental tiny plantar heel spur. Visualized noncontrasted soft tissues demonstrates mild scattered arteriosclerotic calcifications. No focal solid/cystic soft tissue mass or abnormal fluid collection. Impression: 1. 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 Chronic appearing loosening tibial prosthesis as detailed. 2. Nondisplaced fractures remnant medial femoral condyle and remnant medial tibial plateau of uncertain chronicity. Small knee effusion versus hemarthrosis. 3. Tiny nondepressed acute cortical fracture anterior talus. 4. Chronic findings including osteopenia, heel spur, and scattered arteriosclerotic disease.
[2024-03-25] MEDS: ENOXAPARIN SODIUM SQ SCH (15:16)
[2024-03-25] MEDS ORDERED: NON-FORMULARY ITEM (Pravastatin Sodium [Pravachol] 40 MG Tablet) PO SCH (22:00)
[2024-03-25] MEDS: ZOCOR 20MG PO SCH (22:40)
--- NOTE | 2024-03-26 05:21 | PCM.NOTE ---
Date and Time: 03/26/24519 Subjective Assessment: 83 years old very pleasant lady with past medical history significant for hypertension hyperlipidemia chronic arthritis multiple back surgeries s/p Dilaudid pump insertion lives at home with spouse quite independent her daily life admitted 03/24/24 with fracture of the right ankle, lumosacral strain, and tibial plateau fracture of experiencing a ground level fall as she slipped in the bathroom at home. Ortho consulted. 03/25/24: Met with patient bedside. Endorses 8/10 right ankle pain. Patient has active diluadid pain pump which is not managing pain. Will add [place]. Ortho consult pending. Potassium low at 2.8 this morning- will replenish. Denies fever,cough, sob, cp, abdominal pain, SMITH, dizziness, N/V/D. Objective Exam Wound Assessment: Skin/Wound Assessment Wound/Incision Assessment Start: 03/24/24 22:2 2 Text: Status: Active Freq: Q6H Protocol: Document 03/26/24 02:00 MP (Rec: 03/26/24 03:08 MP [id number]) Wound Photo Photo Taken No Objective Data Vital Signs: Vital Signs - 24 hr Temp Pulse Resp BP Pulse Ox 03/26/24 04:00 97.9 F 82 19 124/58 97 03/26/24 00:00 99.1 F 74 18 111/58 94 L 03/25/24 20:00 99.0 F 69 16 100/54 99 03/25/24 16:00 97.7 F 72 16 114/58 90 L 03/25/24 12:00 98.8 F 67 16 124/59 91 L 03/25/24 08:23 99 03/25/24 07:35 98.0 F 72 16 117/58 94 L Pain Assessment - Last Documented Pain Intensity 5 Pain Scale Used 0-10 Pain Scale Intake and Output: Intake & Output 03/23/24 03/24/24 03/25/24 03/26/24 11:59 11:59 11:59 11:59 Intake Total 240 1200 Output Total 2350 1800 Balance -2109 -600 Weight 76 kg Lab Results: Lab Results-Last 24 Hours 03/25/24 03/25/24 03/25/24 Range/Units 04:18 05:33 09:35 Sodium 137 (135-145) mmol/L Potassium 2.8 L* 3.4 L D (3.5-5.1) mmol/L Chloride 99 (98-107) mmol/L Carbon Dioxide 35 H (22-30) mmol/L Anion Gap 5.9 (5-15) MEQ/L BUN 15 (7-17) mg/dL Creatinine 0.89 (0.52-1.04) mg/dL Estimated GFR 65.1 ML/MIN Glucose 102 (74-106) mg/dL Calcium 8.7 (8.4-10.2) mg/dL Magnesium 1.8 (1.6-2.3) mg/dL 03/25/24 Range/Units 18:35 Sodium (135-145) mmol/L Potassium 3.2 L (3.5-5.1) mmol/L Chloride (98-107) mmol/L Carbon Dioxide (22-30) mmol/L Anion Gap (5-15) MEQ/L BUN (7-17) mg/dL Creatinine (0.52-1.04) mg/dL Estimated GFR ML/MIN Glucose (74-106) mg/dL Calcium (8.4-10.2) mg/dL Magnesium (1.6-2.3) mg/dL Radiology Exams: Radiology Procedures Category Date Time Status ANKLE (3 VIEWS) Urgent Exams 03/25/24 12:31 Completed LOWER EXTREMITY WO CONTRAST [CT] Stat Exams 03/24/24 17:16 Completed LOWER EXTREMITY WO CONTRAST [CT] Urgent Exams 03/25/24 12:35 Completed LOWER LEG Stat Exams 03/24/24 17:17 Completed LUMBAR SPINE W/O [CT] Stat Exams 03/24/24 17:16 Completed Assessment/Plan (1) Fracture of right ankle, lateral malleolus Current Visit: Yes Status: Acute Assessment & Plan: -secondary to ground level fall at home -Pain control - patient does have active diluadid pain pump - dc iv diluadid add [place]/narcan -Ortho consult pending -CT LE through right hip -Negative acute fracture/dislocation. Incidental chronic findings -Xray right lower leg showingnondisplaced acute fracture medial tibial plateau. Also nondisplaced acute hairline fracture lateral malleolus. -Lumbar spine Impression: 1. Again moderate/advanced multilevel degenerative spondylosis. Again greatest extent at L4-L5 where there is spinal canal and bilateral foraminal stenosis. 2. Stable osteopenia, L4 vertebral hemangioma, dextrorotoscoliosis, and postsurgical changes. 3. No new/acute findings. Code(s): S82.61XA - DISP FX OF LATERAL MALLEOLUS OF RIGHT FIBULA, INIT (2) Fall Current Visit: Yes Status: Acute Assessment & Plan: -Ground level fall at home -CT LE through right hip -Negative acute fracture/dislocation. Incidental chronic findings -Xray right lower leg showingnondisplaced acute fracture medial tibial plateau. Also nondisplaced acute hairline fracture lateral malleolus. -Lumbar spine Impression: 1. Again moderate/advanced multilevel degenerative spondylosis. Again greatest extent at L4-L5 where there is spinal canal and bilateral foraminal stenosis. 2. Stable osteopenia, L4 vertebral hemangioma, dextrorotoscoliosis, and postsurgical changes. 3. No new/acute findings. -PT/OT -Ortho consult pending Code(s): W19.XXXA - UNSPECIFIED FALL, INITIAL ENCOUNTER (3) Lumbosacral strain Current Visit: Yes Status: Acute Assessment & Plan: -Lumbar spine Impression: 1. Again moderate/advanced multilevel degenerative spondylosis. Again greatest extent at L4-L5 where there is spinal canal and bilateral foraminal stenosis. 2. Stable osteopenia, L4 vertebral hemangioma, dextrorotoscoliosis, and postsurgical changes. 3. No new/acute findings. -Pain control Code(s): S39.012A - STRAIN OF MUSCLE, FASCIA AND TENDON OF LOWER BACK, INIT (4) Tibial plateau fracture Current Visit: Yes Status: Acute Assessment & Plan: -Xray right lower leg showingnondisplaced acute fracture medial tibial plateau. Also nondisplaced acute hairline fracture lateral malleolus. -Ortho consulted, pending recommendations -NPO -Hold Lovenox -pain control Code(s): S82.143A - DISPLACED BICONDYLAR FRACTURE OF UNSP TIBIA, INIT (5) Hypertension Current Visit: No Status: Acute Assessment & Plan: -stable - continue home meds when diet resumed Code(s): I10 - ESSENTIAL (PRIMARY) HYPERTENSION (6) Hypokalemia Current Visit: Yes Status: Acute Assessment & Plan: -K+ at 2.8 this morning, will replenish -tele Code(s): E87.6 - HYPOKALEMIA (7) Chronic back pain Current Visit: Yes Status: Acute Assessment & Plan: -Noted with implanted diluadid pain pump- active - RN called pain specialist for pump settings for pharmacy review -d/c IV dilaudid -Narcan prn added Code(s): M54.9 - DORSALGIA, UNSPECIFIED; G89.29 - OTHER CHRONIC PAIN (8) Bilateral lower extremity edema Current Visit: Yes Status: Acute Assessment & Plan: -continue home lasix Code(s): S82.61XA - DISP FX OF LATERAL MALLEOLUS OF RIGHT FIBULA, INIT (2) Fall Current Visit: Yes Status: Acute Code(s): W19.XXXA - UNSPECIFIED FALL, INITIAL ENCOUNTER (3) Lumbosacral strain Current Visit: Yes Status: Acute Code(s): S39.012A - STRAIN OF MUSCLE, FASCIA AND TENDON OF LOWER BACK, INIT (4) Tibial plateau fracture Current Visit: Yes Status: Acute Code(s): S82.143A - DISPLACED BICONDYLAR FRACTURE OF UNSP TIBIA, INIT (5) Hypertension Current Visit: No Status: Acute Code(s): I10 - ESSENTIAL (PRIMARY) HYPERTENSION (6) Hypokalemia Current Visit: Yes Status: Acute Code(s): E87.6 - HYPOKALEMIA (7) Chronic back pain Current Visit: Yes Status: Acute Code(s): M54.9 - DORSALGIA, UNSPECIFIED; G89.29 - OTHER CHRONIC PAIN (8) Bilateral lower extremity edema Current Visit: Yes Status: Acute Code(s): R60.0 - LOCALIZED EDEMA
--- NOTE | 2024-03-26 08:49 | PCM.NOTE ---
Date and Time: 03/26/24 0837 Objective Exam Wound Assessment: Skin/Wound Assessment Wound/Incision Assessment Start: 03/24/24 22:22 Text: Status: Active Freq: Q6H Protocol: Document 03/26/24 08:00 RB (Rec: 03/26/24 08:18 RB [id number]) Wound Photo Photo Taken No Objective Data Vital Signs: Vital Signs - 24 hr Temp Pulse Resp BP Pulse Ox 03/26/24 06:51 94 L 03/26/24 06:38 98.2 F 79 16 134/64 97 03/26/24 04:00 97.9 F 82 19 124/58 97 03/26/24 00:00 99.1 F 74 18 111/58 94 L 03/25/24 20:00 99.0 F 69 16 100/54 99 03/25/24 16:00 97.7 F 72 16 114/58 90 L 03/25/24 12:00 98.8 F 67 16 124/59 91 L Pain Assessment - Last Documented Pain Intensity 6 Pain Scale Used 0-10 Pain Scale Intake and Output: Intake & Output 03/23/24 03/24/24 03/25/24 03/26/24 11:59 11:59 11:59 11:59 Intake Total 240 1200 Output Total 2350 1800 Balance -2110 -600 Weight 76 kg Lab Results: Lab Results-Last 24 Hours 03/25/24 03/25/24 Range/Units 09:35 18:35 Potassium 3.4 L D 3.2 L (3.5-5.1) mmol/L Radiology Exams: Radiology Procedures Category Date Time Status ANKLE (3 VIEWS) Urgent Exams 03/25/24 12:31 Completed LOWER EXTREMITY WO CONTRAST [CT] Stat Exams 03/24/24 17:16 Completed LOWER EXTREMITY WO CONTRAST [CT] Urgent Exams 03/25/24 12:35 Completed LOWER LEG Stat Exams 03/24/24 17:17 Completed LUMBAR SPINE W/O [CT] Stat Exams 03/24/24 17:16 Completed
--- NOTE | 2024-03-26 08:55 | PCM.NOTE ---
Date and Time: 03/26/24 0850 Subjective Assessment: Follow-up right knee pain, right ankle pain Objective Exam Objective Exam: She was able to walk to the bathroom with a walking boot on the right ankle, standby assistance, walker. She has tenderness of the medial knee, no discoloration or abnormal swelling, healed midline incision, can do straight leg raise Slight tenderness lateral side of right ankle but no swelling or discoloration Objective Data Vital Signs: Vital Signs - 24 hr Temp Pulse Resp BP Pulse Ox 03/26/24 06:51 94 L 03/26/24 06:38 98.2 F 79 16 134/64 97 03/26/24 04:00 97.9 F 82 19 124/58 97 03/26/24 00:00 99.1 F 74 18 111/58 94 L 03/25/24 20:00 99.0 F 69 16 100/54 99 03/25/24 16:00 97.7 F 72 16 114/58 90 L 03/25/24 12:00 98.8 F 67 16 124/59 91 L Pain Assessment - Last Documented Pain Intensity 6 Pain Scale Used 0-10 Pain Scale Intake and Output: Intake & Output 03/23/24 03/24/24 03/25/24 03/26/24 11:59 11:59 11:59 11:59 Intake Total 240 1200 Output Total 2350 1800 Balance -2110 -600 Weight 76 kg Lab Results: Lab Results-Last 24 Hours 03/25/24 03/25/24 Range/Units 09:35 18:35 Potassium 3.4 L D 3.2 L (3.5-5.1) mmol/L Radiology Exams: Radiology Procedures Category Date Time Status ANKLE (3 VIEWS) Urgent Exams 03/25/24 12:31 Completed LOWER EXTREMITY WO CONTRAST [CT] Stat Exams 03/24/24 17:16 Completed LOWER EXTREMITY WO CONTRAST [CT] Urgent Exams 03/25/24 12:35 Completed LOWER LEG Stat Exams 03/24/24 17:17 Completed LUMBAR SPINE W/O [CT] Stat Exams 03/24/24 17:16 Completed Multi-Disciplinary Progress Notes: Repeat x-rays were ordered of the right ankle and a CT of the right knee x-rays of the right ankle do not show a fracture CT of the knee was done confirming what appears to be looseness of her tibial component, possible fracture of medial plateau age undetermined Assessment/Plan - Assessment/Plan Assessment & Plan: 1. Sprain right ankle 2. Right knee pain--This appears to be due to a loose tibial component. There is evidence of a potential fracture of the medial tibial plateau, but the age is indeterminate. The component is slipping into varus alignment, this is producing some lateral pressure of the stem of the tibial component She was told that for any more definitive care of her knee area she would have to see a specialist in [place], she has been to Dr. Greco in the past. She does not want to do that currently and does not wish to have any surgery. Therefore we will try her with a stirrup brace and knee brace combination, weight-bear as tolerated
[2024-03-26] MEDS: Klor Con PO SCH (09:34)
--- NOTE | 2024-03-26 10:48 | PCM.DS ---
Discharge Summary Date of Admission: 03/24/24 21:42 Date of Discharge: 03/26/24 Admitting Physician: DENNIS BETH MD Consults: Consults on Case 03/24/24 22:45 Consult Ortho ROUTINE Primary Care Provider: CHARLES RUDD DOMINGO Allergies Allergies erythromycin base Adverse Reaction (Verified 03/24/24 16:56) Nausea esomeprazole [From Nexium] Adverse Reaction (Verified 03/24/24 16:56) Nausea etodolac [From Lodine] Adverse Reaction (Verified 03/24/24 16:56) Nausea oxaprozin [From Daypro] Adverse Reaction (Verified 03/24/24 16:56) Nausea oxycodone [From OxyContin] Adverse Reaction (Verified 03/24/24 16:56) Nausea rofecoxib [From Vioxx] Adverse Reaction (Verified 03/24/24 16:56) Nausea Sulfa (Sulfonamide Antibiotics) Adverse Reaction (Verified 03/24/24 16:56) Nausea Hospital Summary - Hospital Course Hospital Course: 83 years old very pleasant lady with past medical history significant for hypertension hyperlipidemia chronic arthritis multiple back surgeries s/p Dilaudid pump insertion lives at home with spouse quite independent her daily life admitted 03/24/24 with fracture of the right ankle, lumosacral strain, and tibial plateau fracture of experiencing a ground level fall as she slipped in the bathroom at home. Ortho consulted, per ortho read of xray - right ankle does not show a fracture. CT of the knee was done confirming what appears to be looseness of her tibial component, possible fracture of medial plateau age undetermined. Ortho recommending for any more definitive care of her knee area she would have to see a specialist in [place], she has been to Dr. Greco in the past. She does not want to do that currently and does not wish to have any surgery. Ortho recommending stirrup brace and knee brace combination, weight-bear as tolerated. She is under contract with pain management with pain pump for pain control. Follow up with ortho in three weeks. Patient currently declines suggested HHC - will discuss again prior to d/c and set up if agreeable. Discharge Note Follow Up: Ortho three weeks Results pending: Outpatient testing to order: Latest Assessment & Plan (1) Fracture of right ankle, lateral malleolus Current Visit: Yes Status: Acute Assessment & Plan: -secondary to ground level fall at home -Pain control - patient does have active diluadid pain pump - dc iv diluadid add [place]/narcan -Ortho consult pending -CT LE through right hip -Negative acute fracture/dislocation. Incidental chronic findings -Xray right lower leg showingnondisplaced acute fracture medial tibial plateau. Also nondisplaced acute hairline fracture lateral malleolus. -Lumbar spine Impression: 1. Again moderate/advanced multilevel degenerative spondylosis. Again greatest extent at L4-L5 where there is spinal canal and bilateral foraminal stenosis. 2. Stable osteopenia, L4 vertebral hemangioma, dextrorotoscoliosis, and postsurgical changes. 3. No new/acute findings. Code(s): S82.61XA - DISP FX OF LATERAL MALLEOLUS OF RIGHT FIBULA, INIT (2) Fall Current Visit: Yes Status: Acute Assessment & Plan: -Ground level fall at home -CT LE through right hip -Negative acute fracture/dislocation. Incidental chronic findings -Xray right lower leg showingnondisplaced acute fracture medial tibial plateau. Also nondisplaced acute hairline fracture lateral malleolus. -Lumbar spine Impression: 1. Again moderate/advanced multilevel degenerative spondylosis. Again greatest extent at L4-L5 where there is spinal canal and bilateral foraminal stenosis. 2. Stable osteopenia, L4 vertebral hemangioma, dextrorotoscoliosis, and postsurgical changes. 3. No new/acute findings. -PT/OT -Ortho consult pending Code(s): W19.XXXA - UNSPECIFIED FALL, INITIAL ENCOUNTER (3) Lumbosacral strain Current Visit: Yes Status: Acute Assessment & Plan: -Lumbar spine Impression: 1. Again moderate/advanced multilevel degenerative spondylosis. Again greatest extent at L4-L5 where there is spinal canal and bilateral foraminal stenosis. 2. Stable osteopenia, L4 vertebral hemangioma, dextrorotoscoliosis, and postsurgical changes. 3. No new/acute findings. -Pain control Code(s): S39.012A - STRAIN OF MUSCLE, FASCIA AND TENDON OF LOWER BACK, INIT (4) Tibial plateau fracture Current Visit: Yes Status: Acute Assessment & Plan: -Xray right lower leg showingnondisplaced acute fracture medial tibial plateau. Also nondisplaced acute hairline fracture lateral malleolus. -Ortho consulted, pending recommendations -NPO -Hold Lovenox -pain control Code(s): S82.143A - DISPLACED BICONDYLAR FRACTURE OF UNSP TIBIA, INIT (5) Hypertension Current Visit: No Status: Acute Assessment & Plan: -stable - continue home meds when diet resumed Code(s): I10 - ESSENTIAL (PRIMARY) HYPERTENSION (6) Hypokalemia Current Visit: Yes Status: Acute Assessment & Plan: -K+ at 2.8 this morning, will replenish -tele Code(s): E87.6 - HYPOKALEMIA (7) Chronic back pain Current Visit: Yes Status: Acute Assessment & Plan: -Noted with implanted diluadid pain pump- active - RN called pain specialist for pump settings for pharmacy review -d/c IV dilaudid -Narcan prn added Code(s): M54.9 - DORSALGIA, UNSPECIFIED; G89.29 - OTHER CHRONIC PAIN (8) Bilateral lower extremity edema Current Visit: Yes Status: Acute Assessment & Plan: -continue home marcie I spent 35 minutes [id number] with the patient on the day of discharge performing discharge exam, discussing hospital stay and discharge instructions with patient and caregivers, preparation of discharge records, prescriptions & referral forms and addressing any questions/concerns the patient had as documented above. - Vitals & Intake/Output Vital Signs: Vital Signs Temperature 98.2 F 03/26/24 06:38 Pulse Rate 79 03/26/24 06:38 Respiratory Rate 16 03/26/24 06:38 Blood Pressure 134/64 03/26/24 06:38 O2 Sat by Pulse Oximetry 94 L 03/26/24 06:51 Intake & Output: Intake & Output 03/23/24 03/24/24 03/25/24 03/26/24 11:59 11:59 11:59 11:59 Intake Total 240 1320 Output Total 2350 1800 Balance -0 -480 Weight 76 kg - Lab Result Diagrams: 03/25/24 04:18 03/25/24 18:35 Lab Results-Last 24 Hrs: Lab Results-Last 24 Hours 03/25/24 Range/Units 18:35 Potassium 3.2 L (3.5-5.1) mmol/L - Radiology Exams Ordered Rad Exams-Entire Visit: Radiology Procedures Category Date Time Status ANKLE (3 VIEWS) Urgent Exams 03/25/24 12:31 Completed LOWER EXTREMITY WO CONTRAST [CT] Stat Exams 03/24/24 17:16 Completed LOWER EXTREMITY WO CONTRAST [CT] Urgent Exams 03/25/24 12:35 Completed LOWER LEG Stat Exams 03/24/24 17:17 Completed LUMBAR SPINE W/O [CT] Stat Exams 03/24/24 17:16 Completed - Procedures and Test Procedures and Tests throughout Hospitalization: Therapy Orders & Screens 03/26/24 10:14 PT Eval & Treat (MD Order) ONCE Reason for Eval:: weakness/fracture Diagnosis: fracture Discharge Exam General Appearance: no apparent distress Neurologic Exam: alert, oriented x 3, cooperative Eye Exam: PERRL Ears, Nose, Throat Exam: normal ENT inspection Neck Exam: normal inspection Respiratory Exam: normal breath sounds, lungs clear Cardiovascular Exam: regular rate/rhythm, normal heart sounds Gastrointestinal/Abdomen Exam: soft, normal bowel sounds Pelvic Exam: deferred Rectal Exam: deferred Back Exam: normal inspection Extremity Exam: limited range of motion Skin Exam: normal color Wound Assessment: Skin/Wound Assessment Wound/Incision Assessment Start: 03/24/24 22:22 Text: Status: Active Freq: Q6H Protocol: Document 03/26/24 08:00 RB (Rec: 03/26/24 08:18 RB [id number]) Wound Photo Photo Taken No Final Diagnosis/Problem List - Final Discharge Diagnosis/Problem (1) Fracture of right ankle, lateral malleolus Current Visit: Yes Status: Acute Code(s): S82.61XA - DISP FX OF LATERAL MALLEOLUS OF RIGHT FIBULA, INIT (2) Fall Current Visit: Yes Status: Acute Code(s): W19.XXXA - UNSPECIFIED FALL, INITIAL ENCOUNTER (3) Lumbosacral strain Current Visit: Yes Status: Chronic Code(s): S39.012A - STRAIN OF MUSCLE, FASCIA AND TENDON OF LOWER BACK, INIT (4) Tibial plateau fracture Current Visit: Yes Status: Acute Code(s): S82.143A - DISPLACED BICONDYLAR FRACTURE OF UNSP TIBIA, INIT (5) Hypertension Current Visit: No Status: Chronic Code(s): I10 - ESSENTIAL (PRIMARY) HYPERTENSION (6) Hypokalemia Current Visit: Yes Status: Resolved Code(s): E87.6 - HYPOKALEMIA (7) Chronic back pain Current Visit: Yes Status: Chronic Code(s): M54.9 - DORSALGIA, UNSPECIFIED; G89.29 - OTHER CHRONIC PAIN (8) Bilateral lower extremity edema Current Visit: Yes Status: Chronic Code(s): R60.0 - LOCALIZED EDEMA - Discharge Disposition: Home, Self-Care Condition: Stable Prescriptions: Continue Pravastatin Sodium [Pravachol] 40 mg PO HS Omeprazole 20 MG [Prilosec 20 mg] 20 mg PO DAILY Multivitamin [Multivitamins] 1 each PO DAILY Duloxetine HCl 60 mg PO BID Potassium Chloride Tab* [Klor Con] 10 meq PO DAILY Furosemide 40 mg [Lasix 40 MG] 1 tab PO DAILY Hydromorphone HCl in 0.9% NaCl [Hydromorphone 10 mg/50 ml-Ns] 0 mg IV UD Follow up with: CHARLES RUDD MD [Primary Care Provider] - 04/09/24 2:15 pm DONNA MCDONNELL MD [ACTIVE STAFF] - 3 weeks
[2024-03-26] MEDS: Klor Con PO ONE (11:18)
[2024-03-26 12:17] LABS: Absolute Neutrophil Ct (ANC) 4.32 x10^3/uL (1.56-6.13); BASOPHIL % 0.3 % (0.1-1.2); Basophil (Absolute #) 0.02 x10^3/uL (0.01-0.08); Eosinophil % 0.7 % (0.7-5.8); Eosinophil (Absolute #) 0.04 x10^3/uL (0.04-0.36); Hematocrit 31.4 % (34.1-44.9); Hemoglobin 9.9 g/dL (11.2-15.7); IMMATURE GRAN # 0.02 x10^3u/L (0.001-0.031); IMMATURE GRAN % 0.3 % (0.001-0.429); Lymphocyte (Absolute #) 0.98 x10^3/uL (1.18-3.74); Mean Cell Volume 92.6 fL (79.4-94.8); Mean Corpuscular Hemoglobin 29.2 pg (25.6-32.2); Mean Corpuscular Hgb Concent. 31.5 g/dL (32.2-35.5); Mean Platelet Volume 9.6 fL (9.4-12.3); Monocyte (Absolute #) 0.73 x10^3/uL (0.24-0.86); Monocytes % 11.9 % (4.7-12.5); Neutrophil % 70.8 % (34.0-71.1); Platelet Count 236 x10^3/uL (182-369); Red Blood Count 3.39 x10^6/uL (3.93-5.22); White Blood Count 6.1 x10^3/uL (3.98-10.04)
[2024-03-26 12:31] VITALS: BP 107/56; PULSE 75; RESP 12; TEMP 98.3; O2SAT 96
[2024-03-26 12:41] LABS: ISTAT K 3.7 mmol/L (3.5-4.9)
[2024-03-26 12:42] LABS: ISTAT CREA 1.1 mg/dL (0.6-1.3); ISTAT iCA 1.1 mmol/L (1.12-1.32)
--- NOTE | 2024-03-26 14:26 | CONS ---
REASON FOR CONSULT: Right leg pain. HISTORY: This is an 83-year-old female who was brought to the emergency room last night by her after she fell at home. She had pain in the right lower extremity, complaining mainly of right knee and ankle pain. In the emergency room, she had a CT done of her right hip and x-rays of the right tib-fib. She has had prior left total knee replacement in approximately 1999, with subsequent revision about 5 years ago. She reports that the knee has not been bothering her until the fall yesterday, but now she has pain on the medial side of her right knee and pain on the lateral right ankle. She states that she was up at 3 in the morning to go to the bathroom and simply slipped and fell. PAST MEDICAL HISTORY: High cholesterol, hypertension, arthritis. PAST SURGICAL HISTORY: Right knee surgeries as discussed. In addition, she has had carpal tunnel surgery, spinal stimulator, several back surgeries, right foot surgery, pain pump. HOME MEDICATIONS: Aspirin, Prilosec, Pravachol, duloxetine, multivitamin, potassium chloride, Lasix. SOCIAL HISTORY: Nonsmoker, , lives at home with , still drives. REVIEW OF SYSTEMS: Negative for fever, chills; eye symptoms; ear, nose and throat symptoms; respiratory symptoms; cardiac symptoms. LABORATORY DATA AND TESTS: CT scan performed of lower extremity. I reviewed the films. The CT shows only the hip area, and no fractures are seen. X-rays of the right leg include an AP, lateral of the tibia and fibula, on 1 view. There is a lucent line along the medial tibial plateau, right along the margin of the cement mantle. There is cement in the upper tibia for the total knee arthroplasty, and there is a long stem in place. There is slight windshield wiper effect of the implant, producing slight varus settling with lateral tibial thickening along the distal aspect of the implant. It is not clear if this lucent line proximally and medially is actually a fracture or simple interface between the cement and bone. Fracture is not seen on the lateral view. The ankle is seen on these same views, but I personally do not see a fracture of the lateral malleolus. PHYSICAL EXAMINATION: VITAL SIGNS: On admission, temperature 98.7, pulse 71, respirations 18, BP 126/76. GENERAL: Patient is awake, alert, oriented. She was evaluated in bed. EXTREMITIES: She has a healed scar on the front of the right knee. No deformities noted of the right lower extremity. She has no pain in the right hip. She is tender over the medial side of her right proximal tibia; while she can do a straight leg raise, she cannot bend the knee more than 30 degrees. There is no discoloration or effusion. Varus and valgus stress of the knee do elicit pain. She also has tenderness of the right lateral ankle without deformity, mild swelling present. IMPRESSION: 1) Right knee pain, status post knee replacement and revision, possible fracture. 2) Right ankle pain, possible lateral malleolus fracture. PLAN: 1) CT scan of right proximal tibia and knee. 2) Dedicated 3-view x-ray series, right ankle. 3) Continue nonweightbearing. Patient may eat.
== END 2024-03-26 14:56 | disposition home health service (06) ==
LOC: ED 16:32 → MED SURG 21:42
PROVIDERS: ADMIT Internal Medicine; ATTEND Internal Medicine
DX: S82.61XA Displaced fracture of lateral malleolus of right fibula, initial encounter for closed fracture (principal); W19.XXXA Unspecified fall, initial encounter; S39.012A Strain of muscle, fascia and tendon of lower back, initial encounter; S82.143A Displaced bicondylar fracture of unspecified tibia, initial encounter for closed fracture; I10 Essential (primary) hypertension; E87.6 Hypokalemia; E78.5 Hyperlipidemia, unspecified; M54.9 Dorsalgia, unspecified; R60.0 Localized edema; Z79.899 Other long term (current) drug therapy
CPT/HCPCS: 36000; 36415; 51702; 72131; 73590; 73610; 73700; 80047; 80048; 80053; 81001; 83735; 84132; 85025; 85027; 93268; 94760; 96374; 99203; 99214; 99285; J1170; J3480; Q3014; A9270-GY; G0378

== ENCOUNTER 2025-01-19 13:35 | Observation (INO) | payer MEDICARE ==
--- NOTE | 2025-01-19 14:28 | ERPHSYRPT ---
- History of Present Illness Time Seen by Provider: 01/19/25 14:00 Source: patient Exam Limitations: no limitations Patient Subjective Stated Complaint: Patient tripped and fell at home. States she hit the back of her head off of the floor; the floor is ceramic. C/O head and neck pain. Triage Nursing Assessment: Patient arrived by EMS. She is alert and oriented. Neck is immobilized. Pupils equal and reactive. NO SOB. Skin tone normal. Edema present to BLE. Physician History: 84-year-old female presents to the emergency department via EMS for evaluation status post fall. Patient states she tripped at home and had a mechanical ground-level fall. Patient hit the back of her head on a ceramic floor. No loss of consciousness. Patient experiencing posterior head and neck pain. No nausea no vomiting no diaphoresis no chest pain or shortness of breath. Patient voices no other complaints or concerns at this time. Portions of this note were created with voice recognition technology. There may be grammatical, spelling, punctuation or sound alike errors Timing/Duration: today Severity: moderate Modifying Factors: Improves With: nothing Associated Symptoms: denies symptoms Allergies/Adverse Reactions: erythromycin base Adverse Reaction (Verified 01/19/25 13:42) Nausea esomeprazole [From Nexium] Adverse Reaction (Verified 01/19/25 13:42) Nausea etodolac [From Lodine] Adverse Reaction (Verified 01/19/25 13:42) Nausea oxaprozin [From Daypro] Adverse Reaction (Verified 01/19/25 13:42) Nausea oxycodone [From OxyContin] Adverse Reaction (Verified 01/19/25 13:42) Nausea rofecoxib [From Vioxx] Adverse Reaction (Verified 01/19/25 13:42) Nausea Sulfa (Sulfonamide Antibiotics) Adverse Reaction (Verified 01/19/25 13:42) Nausea Home Medications: Omeprazole 20 MG [Prilosec 20 mg] 20 mg PO DAILY 12/07/16 [History] Pravastatin Sodium [Pravachol] 40 mg PO HS 12/07/16 [History] Duloxetine HCl 60 mg PO BID 01/01/19 [History] Multivitamin [Multivitamins] 1 each PO DAILY 01/01/19 [History] Potassium Chloride Tab* [Klor Con] 10 meq PO DAILY 09/27/20 [History] Furosemide 40 mg [Lasix 40 MG] 1 tab PO DAILY 10/29/23 [History] Hydromorphone HCl in 0.9% NaCl [Hydromorphone 10 mg/50 ml-Ns] 0 mg IV UD 03/25/24 [History] Hx Tetanus, Diphtheria Vaccination/Date Given: Yes Hx Influenza Vaccination/Date Given: Yes Hx Pneumococcal Vaccination/Date Given: Yes Immunizations Up to Date: Yes Travel Risk - International Travel Have you traveled outside of the country in past 3 weeks: No - Emerging Infectious Disease Are you exhibiting symptoms associated with any current EIDs: No - Review of Systems Constitutional: No Symptoms, No Fever, No Chills Eyes: No Symptoms Ears, Nose, & Throat: No Symptoms Respiratory: No Symptoms, No Cough, No Dyspnea Cardiac: No Symptoms, No Chest Pain, No Edema, No Syncope Abdominal/Gastrointestinal: No Symptoms, No Abdominal Pain, No Nausea, No Vomiting, No Diarrhea Genitourinary Symptoms: No Symptoms, No Dysuria Musculoskeletal: No Symptoms, No Back Pain, No Neck Pain Skin: No Symptoms, No Rash Neurological: No Symptoms, No Dizziness, No Focal Weakness, No Sensory Changes Psychological: No Symptoms Endocrine: No Symptoms Hematologic/Lymphatic: No Symptoms Immunological/Allergic: No Symptoms All Other Systems: Reviewed and Negative - Past Medical History Pertinent Past Medical History: Yes Neurological History: Other ENT History: No Pertinent History Cardiac History: High Cholesterol, Hypertension Respiratory History: No Pertinent History Endocrine Medical History: No Pertinent History Musculoskeletal History: Arthritis GI Medical History: No Pertinent History History: Renal Disease Psycho-Social History: No Pertinent History Female Reproductive Disorders: No Pertinent History Other Medical History: ANEMIA. Implanted pain pump (dilaudid) - Past Surgical History Past Surgical History: Yes Neuro Surgical History: No Pertinent History Cardiac: No Pertinent History Respiratory: No Pertinent History Gastrointestinal: No Pertinent History Genitourinary: No Pertinent History Musculoskeletal: Orthopedic Surgery, Other Female Surgical History: Hysterectomy, Section Other Surgical History: Carpal tunnel, L knee, R knee twice, stimulator in back, several back surgeries, right foot times 2, pain pump with dilaudid,colonoscopy. [id number] Significant Family History: no pertinent family hx (No family history pertaining to this admission reported.) - Social History Smoking Status: Never smoker Exposure to second hand smoke: No Drug Use: none - Social Determinants of Health Will the patient participate in the screening: Yes Do you worry about a steady place to live?: No Do you have any problems with any of the following?: No known problems In the past 12 months,have you had to go without utilities?: No Transportation Issues: No Has anyone in your support network made you feel unsafe?: No Have you or anyone in your house had to go w/o enough food: No - Nursing Vital Signs Nursing Vital Signs: Initial Vital Signs Temperature 97.4 F 01/19/25 13:41 Pulse Rate 93 H 01/19/25 13:41 Respiratory Rate 20 01/19/25 13:41 Blood Pressure 163/82 01/19/25 13:41 O2 Sat by Pulse Oximetry 97 01/19/25 13:41 Pain Scale Pain Intensity 6 - Physical Exam General Appearance: no apparent distress, alert, other (Tenderness to palpation posterior head) Eye Exam: PERRL/EOMI, eyes nml inspection Ears, Nose, Throat Exam: normal ENT inspection, pharynx normal, moist mucous membranes Neck Exam: normal inspection, full range of motion, other (Tenderness to palpation posterior cervical spine) Respiratory Exam: normal breath sounds, lungs clear, No respiratory distress Cardiovascular Exam: regular rate/rhythm, normal heart sounds, normal peripheral pulses Gastrointestinal/Abdomen Exam: soft, normal bowel sounds, No tenderness, No mass Back Exam: normal inspection, normal range of motion, No CVA tenderness, No vertebral tenderness Extremity Exam: normal inspection, normal range of motion, pelvis stable, other (ad) Neurologic Exam: alert, oriented x 3, cooperative, normal mood/affect, sensation nml, No motor deficits Skin Exam: normal color, warm, dry, No rash Lymphatic Exam: No adenopathy SpO2 Interpretation: normal SpO2: 97 O2 Delivery: Room Air - Course Nursing assessment & vital signs reviewed: Yes - CT Exams Head CT Interpretation: Tele-radiologist Report (No acute finding) Cervical Spine CT Interpretation: Tele-radiologist Report (No acute findings) Ordered Tests: Active Orders 24 hr Category Date Time Status Telemetry q4h Care 01/19/25 16:02 Active CERVICAL SPINE WO CONTRAST [CT] Stat Exams 01/19/25 13:43 Completed HEAD WITHOUT CONTRAST [CT] Stat Exams 01/19/25 13:43 Completed CBC W DIFF Stat Lab 01/19/25 14:48 Completed CMP Stat Lab 01/19/25 14:48 Completed TROPONIN Q4H Lab 01/19/25 14:48 Completed TROPONIN Q4H Lab 01/19/25 18:30 Ordered TROPONIN Q4H Lab 01/19/25 22:30 Ordered UA W/RFX UR CULTURE Stat Lab 01/19/25 14:27 Ordered Transfer Order Routine Transfer 01/19/25 Ordered Medication Summary Generic Name Dose Route Start Last Admin Trade Name Freq PRN Reason Stop Dose Admin Magnesium Sulfate/Dextrose 100 mls @ 100 mls/hr 01/19/25 16:15 01/19/25 16:11 Magnesium 1 Gm / 100 Ml D5w IV 01/19/25 18:14 100 mls/hr Q1H MARGARITO Administration Potassium Chloride 20 meq in 100 mls @ 50 mls/hr 01/19/25 16:15 Potassium Chloride 20 Meq In Water 100ml IV 01/19/25 20:14 Q2H MARGARITO Sodium Chloride 1,000 mls @ 200 mls/hr 01/19/25 16:15 01/19/25 16:09 Sodium Chloride 0.9% 1000 Ml IV 02/18/25 16:14 200 mls/hr .Q5H MARGARITO Administration Lab/Rad Data: Laboratory Result Diagrams 01/19/25 14:48 01/19/25 14:48 Laboratory Results 01/19/25 01/19/25 01/19/25 Range/Units 14:48 14:48 14:48 WBC 6.2 (3.98-10.04) x10^3/uL RBC 3.58 L (3.93-5.22) x10^6/uL Hgb 10.9 L (11.2-15.7) g/dL Hct 33.0 L (34.1-44.9) % MCV 92.2 (79.4-94.8) fL MCH 30.4 (25.6-32.2) pg MCHC 33.0 (32.2-35.5) g/dL RDW 12.5 (11.7-14.4) % Plt Count 255 (182-369) x10^3/uL MPV 9.7 (9.4-12.3) fL Gran % 74.6 H (34.0-71.1) % Immature Gran % (Auto) 0.2 (0.001-0.429) % Nucleat RBC Rel Count 0.0 (0.00-0.2) % Eos # (Auto) 0.06 (0.04-0.36) x10^3/uL Immature Gran # (Auto) 0.01 (0.001-0.031) x10^3u/L Absolute Lymphs (auto) 0.95 L (1.18-3.74) x10^3/uL Absolute Monos (auto) 0.51 (0.24-0.86) x10^3/uL Absolute Nucleated RBC 0.00 (0.00-0.012) x10^3u/L Lymphocytes % 15.4 L (19.3-51.7) % Monocytes % 8.3 (4.7-12.5) % Eosinophils % 1.0 (0.7-5.8) % Basophils % 0.5 (0.1-1.2) % Absolute Granulocytes 4.62 (1.56-6.13) x10^3/uL Basophils # 0.03 (0.01-0.08) x10^3/uL Sodium 139 (135-145) mmol/L Potassium 3.2 L (3.5-5.1) mmol/L Chloride 98 (98-107) mmol/L Carbon Dioxide 33 H (22-30) mmol/L Anion Gap 11.0 (5-15) MEQ/L BUN 19 H (7-17) mg/dL Creatinine 0.96 (0.52-1.04) mg/dL Estimated GFR 59.1 ML/MIN Glucose 105 (74-106) mg/dL Calcium 8.9 (8.4-10.2) mg/dL Total Bilirubin 0.40 (0.2-1.3) mg/dL AST 36 (14-36) U/L ALT 26 (0-35) U/L Alkaline Phosphatase 107 (38-126) U/L Troponin I < 0.012 (0.000-0.033) ng/mL Serum Total Protein 6.1 L (6.3-8.2) g/dL Albumin 3.8 (3.5-5.0) g/dL - Progress Progress: improved Progress Note: 84-year-old female presents to our ED for evaluation of a fall and injury to her head and neck. Patient arrived via EMS with a c-collar on. CT head and cervical spine negative for acute pathology. Laboratory workup reveals a hypokalemia of 3.2. Patient reports that she has been experiencing a depressed mood since the passing of her of more than 50 years. Patient has not been eating or drinking as much. Patient feels weak. Patient lives alone and has been falling frequently. Patient's daughter at the bedside. Patient's daughter request hospitalization for IV fluid potassium replacement and generalized weakness. She is concerned that patient lives alone and has been falling frequently due to dehydration and hypokalemia. I spoke to hospitalist at 4:05 PM who accepts admission to observation. Plan of care discussed with patient. She agrees to admission to [facility] for further evaluation and treatment. Portions of this note were created with voice recognition technology. There may be grammatical, spelling, punctuation or sound alike errors Complexity of problem addressed is moderate acute complicated. No critical care time. Complex of data reviewed and analyzed is extensive. Test ordered test reviewed results analyzed and correlated clinically with history and physical exam. Risk of complication and or risk of morbidity/mortality of patient management is high. Patient requires hospitalization for further evaluation and treatment. Vital stable. Time spent admit patient approximately 20 minutes. Plan of care established for shared decision making. No social determinants of health present to impede follow-up. Portions of this note were created with voice recognition technology. There may be grammatical, spelling, punctuation or sound alike errors 01/19/25 16:17 Counseled pt/family regarding: lab results, diagnosis, rad results - Departure Departure Disposition: Observation Clinical Impression: Frequent falls, Generalized weakness, Hypokalemia, Hypomagnesemia, Depressed mood, Decreased oral intake Condition: Stable Critical Care Time: No Referrals: CHARLES RUDD MD [Primary Care Provider, [facility]] - Follow up/PCP as directed
[2025-01-19 14:52] LABS: Absolute Neutrophil Ct (ANC) 4.62 x10^3/uL (1.56-6.13); BASOPHIL % 0.5 % (0.1-1.2); Basophil (Absolute #) 0.03 x10^3/uL (0.01-0.08); Eosinophil (Absolute #) 0.06 x10^3/uL (0.04-0.36); Hemoglobin 10.9 g/dL (11.2-15.7); IMMATURE GRAN # 0.01 x10^3u/L (0.001-0.031); IMMATURE GRAN % 0.2 % (0.001-0.429); Lymphocyte (Absolute #) 0.95 x10^3/uL (1.18-3.74); Lymphocytes % 15.4 % (19.3-51.7); Mean Cell Volume 92.2 fL (79.4-94.8); Mean Corpuscular Hemoglobin 30.4 pg (25.6-32.2); Mean Platelet Volume 9.7 fL (9.4-12.3); Monocyte (Absolute #) 0.51 x10^3/uL (0.24-0.86); Monocytes % 8.3 % (4.7-12.5); Neutrophil % 74.6 % (34.0-71.1); Platelet Count 255 x10^3/uL (182-369); Red Blood Count 3.58 x10^6/uL (3.93-5.22); Red Cell Distribution Width 12.5 % (11.7-14.4); White Blood Count 6.2 x10^3/uL (3.98-10.04)
[2025-01-19 15:13] LABS: ALBUMIN 3.8 g/dL (3.5-5.0); BILIRUBIN,TOTAL 0.4 mg/dL (0.2-1.3); Calcium 8.9 mg/dL (8.4-10.2); Creatinine 1 0.96 mg/dL (0.52-1.04); EST GLOMERULAR FILTRATION RATE 59.1 ML/MIN; Potassium 3.2 mmol/L (3.5-5.1); Total Protein 6.1 g/dL (6.3-8.2)
--- NOTE | 2025-01-19 15:21 | XRAY ---
Indication: Pain following fall. Multiple contiguous axial images obtained through the head without contrast. Comparison: October 14, 2024 Again age-appropriate global atrophy and mild periventricular degenerative micro-ischemia bilaterally. No acute intracranial hemorrhage, abnormal extra-axial fluid collection, or mass effect. Fourth ventricle is midline without hydrocephalus. Bony calvarium intact. Visualized paranasal sinuses and mastoid air cells are clear. Impression: Continued nonacute senile brain.
--- NOTE | 2025-01-19 15:24 | XRAY ---
Indication: Pain following fall. Multiple axial images obtained through the cervical spine. Sagittal and coronal reformatted images obtained. Comparison: None Osseous structures demineralized. Axial images negative for acute fracture, suspicious bony lesions, or spinal canal stenosis. Mild/moderate C5-C7 degenerative endplate spurring and bilateral degenerative facet hypertrophy. Also moderate atlantoaxial degenerative changes. Sagittal and coronal reformatted images demonstrates lordotic straightening, positional versus paraspinal spasm. Multilevel degenerative disc space loss. No acute compression fracture, subluxation, or jumped facet. Normal appearing craniocervical junction. Visualized noncontrasted soft tissues demonstrates mild/moderate scattered carotid calcifications bilaterally. Lung apices clear. Impression: 1. Cervical lordotic straightening, positional versus paraspinal spasm. 2. Negative acute fracture/subluxation. 3. Chronic findings including osteopenia, multilevel degenerative spondylosis, and arteriosclerotic disease
[2025-01-19] MEDS: Sodium Chloride 0.9% 1000 ML 1,000 ML IV SCH (16:09)
[2025-01-19] MEDS: Magnesium 1 Gm / 100 Ml D5W*** 100 ML IV SCH (16:11)
[2025-01-19] MEDS ORDERED: Klor Con PO ONE (17:16)
--- NOTE | 2025-01-19 17:28 | PCM.HP ---
History of Present Illness - Chief Complaint Chief Complaint: fall Date: 01/19/25 History of Present Illness: is an 84-year-old female with PMHX of HTN, hyperlipidemia, OA, and CKD. She presented to the Emergency Department via EMS following a mechanical ground-level fall at home. The patient reports that she tripped and fell, striking the back of her head on a ceramic floor. She denies any loss of consciousness. Her primary complaints are posterior head and neck pain. She denies nausea, vomiting, diaphoresis, chest pain, or shortness of breath. A CT scan of the head and cervical spine was performed and showed no acute abnormalities. Laboratory evaluation revealed a potassium level of 3.2, which was corrected in the Emergency Department. A physical therapy evaluation has been requested to assess fall risk and recommend safety measures for the home en vironment. Of note, the patient recently experienced the of her . - Review of Systems Constitutional: No Fever, No Chills Eyes: No Symptoms Ears, Nose, & Throat: No Symptoms Respiratory: No Cough, No Short Of Breath Cardiac: No Chest Pain, No Edema, No Syncope Abdominal/Gastrointestinal: No Abdominal Pain, No Nausea, No Vomiting, No Diarrhea Genitourinary Symptoms: No Dysuria Musculoskeletal: Fall, Myalgias (head and neck pain), No Back Pain, No Neck Pain Skin: No Rash Neurological: No Dizziness, No Focal Weakness, No Sensory Changes Psychological: No Symptoms Endocrine: No Symptoms Hematologic/Lymphatic: No Symptoms Immunological/Allergic: No Symptoms Medications & Allergies Home Medications: Home Medication List Omeprazole 20 MG [Prilosec 20 mg] 20 mg PO DAILY 12/07/16 [History Confirmed 01/19/25] Pravastatin Sodium [Pravachol] 40 mg PO HS 12/07/16 [History Confirmed 01/19/25] Duloxetine HCl 120 mg PO DAILY 01/01/19 [History Confirmed 01/19/25] Potassium Chloride Tab* [Klor Con] 10 meq PO DAILY 09/27/20 [History Confirmed 01/19/25] Furosemide 40 mg [Lasix 40 MG] 1 tab PO DAILY 10/29/23 [History Confirmed 01/19/25] Hydromorphone HCl in 0.9% NaCl [Hydromorphone 10 mg/50 ml-Ns] 0 mg IV UD 03/25/24 [History Confirmed 01/19/25] Aspirin EC 81 mg [Ecotrin 81 mg] 81 mg PO HS 01/19/25 [History Confirmed 01/19/25] Allergies/Adverse Reactions: Allergies Allergy/AdvReac Type Severity Reaction Status Date / Time erythromycin base AdvReac Nausea Verified 01/19/25 13:42 esomeprazole [From Nexium] AdvReac Nausea Verified 01/19/25 13:42 etodolac [From Lodine] AdvReac Nausea Verified 01/19/25 13:42 oxaprozin [From Daypro] AdvReac Nausea Verified 01/19/25 13:42 oxycodone [From OxyContin] AdvReac Nausea Verified 01/19/25 13:42 rofecoxib [From Vioxx] AdvReac Nausea Verified 01/19/25 13:42 Sulfa (Sulfonamide AdvReac Nausea Verified 01/19/25 13:42 Antibiotics) - Past Medical History Past Medical History: Yes Neurological History: Other ENT History: No Pertinent History Cardiac History: High Cholesterol, Hypertension Respiratory History: No Pertinent History Endocrine Medical History: No Pertinent History Musculoskelatal History: Arthritis GI Medical History: No Pertinent History History: Renal Disease Pyscho-Social History: No Pertinent History Reproductive Disorders: No Pertinent History Comment: ANEMIA. Implanted pain pump (dilaudid) - Past Surgical History Past Surgical History: Yes Neuro Surgical History: No Pertinent History Cardiac History: No Pertinent History Respiratory Surgery: No Pertinent History GI Surgical History: No Pertinent History Genitourinary Surgical Hx: No Pertinent History Musculskeletal Surgical Hx: Orthopedic Surgery, Other Female Surgical History: Hysterectomy, Section Other Surgical History: Carpal tunnel, L knee, R knee twice, stimulator in back, several back surgeries, right foot times 2, pain pump with dilaudid,colonoscopy. [id number] Significant Family History: no pertinent family hx (No family history pertaining to this admission reported.) - Social History Smoking Status: Never smoker Exposure to second hand smoke: No Alcohol: None Drug Use: none - Social Determinants of Health Will the patient participate in the screening: Yes Do you worry about a steady place to live?: No Do you have any problems with any of the following?: No known problems In the past 12 months,have you had to go without utilities?: No Have you or anyone in your house had to go without enough: No Transportation Issues: No Has anyone in your support network made you feel unsafe?: No Does the patient want assistance with any of the above?: No - Physical Exam Vital Signs: Vital Signs - 24 hr Temp Pulse Resp BP Pulse Ox 01/19/25 17:00 97 H 14 111/60 01/19/25 16:30 97 H 11 L 120/71 01/19/25 16:22 97 01/19/25 16:00 101 H 19 133/72 01/19/25 15:30 101 H 17 121/86 01/19/25 15:00 99 H 18 135/71 95 01/19/25 14:30 101 H 14 131/66 96 01/19/25 14:03 98 H 20 147/72 96 01/19/25 13:41 97.4 F 93 H 20 163/82 97 General Appearance: no apparent distress, alert Neurologic Exam: alert, oriented x 3, cooperative, normal mood/affect, nml cerebellar function, nml station & gait, sensation nml, No motor deficits Eye Exam: PERRL/EOMI, eyes nml inspection Ears, Nose, Throat Exam: normal ENT inspection, TMs normal, pharynx normal, moist mucous membranes Neck Exam: normal inspection, non-tender, supple, full range of motion Respiratory Exam: normal breath sounds, lungs clear, No respiratory distress Cardiovascular Exam: regular rate/rhythm, normal heart sounds, normal peripheral pulses Gastrointestinal/Abdomen Exam: soft, normal bowel sounds, No tenderness, No mass Back Exam: normal inspection, normal range of motion, No CVA tenderness, No vertebral tenderness Extremity Exam: normal inspection, normal range of motion, pelvis stable Skin Exam: normal color, warm, dry, No rash Lymphatic Exam: No adenopathy Results - Labs Lab/Micro Results: Lab Results-Last 24 Hours 01/19/25 01/19/25 01/19/25 Range/Units 14:48 14:48 14:48 WBC 6.2 (3.98-10.04) x10^3/uL RBC 3.58 L (3.93-5.22) x10^6/uL Hgb 10.9 L (11.2-15.7) g/dL Hct 33.0 L (34.1-44.9) % MCV 92.2 (79.4-94.8) fL MCH 30.4 (25.6-32.2) pg MCHC 33.0 (32.2-35.5) g/dL RDW 12.5 (11.7-14.4) % Plt Count 255 (182-369) x10^3/uL MPV 9.7 (9.4-12.3) fL Gran % 74.6 H (34.0-71.1) % Immature Gran % (Auto) 0.2 (0.001-0.429) % Nucleat RBC Rel Count 0.0 (0.00-0.2) % Eos # (Auto) 0.06 (0.04-0.36) x10^3/uL Immature Gran # (Auto) 0.01 (0.001-0.031) x10^3u/L Absolute Lymphs (auto) 0.95 L (1.18-3.74) x10^3/uL Absolute Monos (auto) 0.51 (0.24-0.86) x10^3/uL Absolute Nucleated RBC 0.00 (0.00-0.012) x10^3u/L Lymphocytes % 15.4 L (19.3-51.7) % Monocytes % 8.3 (4.7-12.5) % Eosinophils % 1.0 (0.7-5.8) % Basophils % 0.5 (0.1-1.2) % Absolute Granulocytes 4.62 (1.56-6.13) x10^3/uL Basophils # 0.03 (0.01-0.08) x10^3/uL Sodium 139 (135-145) mmol/L Potassium 3.2 L (3.5-5.1) mmol/L Chloride 98 (98-107) mmol/L Carbon Dioxide 33 H (22-30) mmol/L Anion Gap 11.0 (5-15) MEQ/L BUN 19 H (7-17) mg/dL Creatinine 0.96 (0.52-1.04) mg/dL Estimated GFR 59.1 ML/MIN Glucose 105 (74-106) mg/dL Calcium 8.9 (8.4-10.2) mg/dL Total Bilirubin 0.40 (0.2-1.3) mg/dL AST 36 (14-36) U/L ALT 26 (0-35) U/L Alkaline Phosphatase 107 (38-126) U/L Troponin I < 0.012 (0.000-0.033) ng/mL Serum Total Protein 6.1 L (6.3-8.2) g/dL Albumin 3.8 (3.5-5.0) g/dL - Radiology Impressions Radiology Exams & Impressions: Radiology Procedures Category Date Time Status CERVICAL SPINE WO CONTRAST [CT] Stat Exams 01/19/25 13:43 Completed HEAD WITHOUT CONTRAST [CT] Stat Exams 01/19/25 13:43 Completed Assessment/Plan (1) Frequent falls Current Visit: Yes Status: Acute Assessment & Plan: - PT eval and treat - Tele - CBC. CMP reviewed - replace K+ - UA pending - IVF Code(s): R29.6 - REPEATED FALLS (2) Hypokalemia Current Visit: Yes Status: Acute Assessment & Plan: - K+ 3.2- replaced in ER- recheck 2 hours after replacement completed - Tele Code(s): E87.6 - HYPOKALEMIA (3) Depressed mood Current Visit: Yes Status: Acute Assessment & Plan: - Consider psych consult - Refer to [facility] - Since spouse . - Denies suicidal ideation Code(s): R45.89 - OTHER SYMPTOMS AND SIGNS INVOLVING EMOTIONAL STATE (4) HLD (hyperlipidemia) Current Visit: No Status: Chronic Assessment & Plan: - Continue statin Code(s): E78.5 - HYPERLIPIDEMIA, UNSPECIFIED (5) Hypertension Current Visit: No Status: Chronic Assessment & Plan: - BP stable - continue home meds VTE: SCD Next of KIN: Child- Yana Amin D/C plan: 1-2 days Code status: Full Code(s): I10 - ESSENTIAL (PRIMARY) HYPERTENSION
[2025-01-19] MEDS: Klor Con PO ONE (20:29)
[2025-01-19] MEDS: TYLENOL 325 MG PO PRN (21:05)
[2025-01-19] MEDS ORDERED: NON-FORMULARY ITEM (Pravastatin Sodium [Pravachol] 40 MG Tablet) PO SCH (22:00)
[2025-01-19] MEDS ORDERED: ECOTRIN 81 MG PO SCH (22:00)
[2025-01-20 05:38] LABS: Hematocrit 29.6 % (34.1-44.9); Hemoglobin 9.3 g/dL (11.2-15.7); Mean Cell Volume 92.2 fL (79.4-94.8); Mean Corpuscular Hgb Concent. 31.4 g/dL (32.2-35.5); Mean Platelet Volume 9.8 fL (9.4-12.3); Platelet Count 229 x10^3/uL (182-369); Red Blood Count 3.21 x10^6/uL (3.93-5.22); Red Cell Distribution Width 12.5 % (11.7-14.4); White Blood Count 4.8 x10^3/uL (3.98-10.04)
[2025-01-20] MEDS: POTASSIUM CHLORIDE 20 mEq IN WATER 100ML 20 MEQ/100 ML BAG IV SCH (05:44)
[2025-01-20 05:53] LABS: ALBUMIN 3.2 g/dL (3.5-5.0); ANION GAP 8.9 MEQ/L (5-15); BILIRUBIN,TOTAL 0.4 mg/dL (0.2-1.3); Calcium 8.4 mg/dL (8.4-10.2); Creatinine 1 0.93 mg/dL (0.52-1.04); EST GLOMERULAR FILTRATION RATE 61.4 ML/MIN; Potassium 3.4 mmol/L (3.5-5.1); Total Protein 5.6 g/dL (6.3-8.2)
[2025-01-20 08:33] VITALS: O2SAT 93
[2025-01-20] MEDS: Cymbalta 30 MG Capsule PO SCH (09:20)
[2025-01-20] MEDS: ECOTRIN 81 MG PO SCH (09:20)
[2025-01-20] MEDS: Lasix 40 MG PO SCH (09:20)
[2025-01-20] MEDS: Klor Con PO ONE (09:24)
[2025-01-20] MEDS ORDERED: Lasix 40 MG PO SCH (10:00)
[2025-01-20] MEDS ORDERED: NON-FORMULARY ITEM (Duloxetine Hcl [Duloxetine Hcl] 60 MG Capsule.Dr) PO SCH (10:00)
[2025-01-20] MEDS ORDERED: BABY ASPIRIN 81 MG CHEW PO SCH (10:00)
[2025-01-20] MEDS ORDERED: Klor Con PO SCH ×2 (10:00)
[2025-01-20] MEDS ORDERED: NON-FORMULARY ITEM (Omeprazole 20 Mg [Prilosec 20 Mg] 20 MG Capsule.Dr) PO SCH (10:00)
[2025-01-20 12:08] VITALS: BP 123/59; PULSE 64; RESP 22; TEMP 99.3
[2025-01-20 12:17] LABS: Appearance Clear (Clear); Bacteria None Seen /HPF (None Seen); Bilirubin Negative (Negative); Blood Negative (Negative); Epithelial Cells None Seen /HPF (None Seen); Glucose, Urine Negative (Negative); Hyaline Casts NONE SEEN /LPF (0-2); Ketones Negative (Negative); Leukocyte Esterase Trace (Negative); Nitrite Negative (Negative); Ph 6.5 (4.6-8.0); Protein,Urine Dip Negative (Negative); RBC 0-2 /HPF (0-5); Specific Gravity 1.015 (1.005-1.030)
--- NOTE | 2025-01-20 12:39 | PCM.DS ---
Discharge Summary Date of Admission: 01/19/25 17:10 Date of Discharge: 01/20/25 Admitting Physician: LACHO SIMONS MD Primary Care Provider: CHARLES RUDD Allergies Allergies erythromycin base Adverse Reaction (Verified 01/19/25 13:42) Nausea esomeprazole [From Nexium] Adverse Reaction (Verified 01/19/25 13:42) Nausea etodolac [From Lodine] Adverse Reaction (Verified 01/19/25 13:42) Nausea oxaprozin [From Daypro] Adverse Reaction (Verified 01/19/25 13:42) Nausea oxycodone [From OxyContin] Adverse Reaction (Verified 01/19/25 13:42) Nausea rofecoxib [From Vioxx] Adverse Reaction (Verified 01/19/25 13:42) Nausea Sulfa (Sulfonamide Antibiotics) Adverse Reaction (Verified 01/19/25 13:42) Nausea Hospital Summary - Hospital Course Hospital Course: 01/19/25 is an 84-year-old female with PMHX of HTN, hyperlipidemia, OA, and CKD. She presented to the Emergency Department via EMS following a mechanical ground- level fall at home. The patient reports that she tripped and fell, striking the back of her head on a ceramic floor. She denies any loss of consciousness. Her primary complaints are posterior head and neck pain. She denies nausea, vomiting, diaphoresis, chest pain, or shortness of breath. A CT scan of the head and cervical spine was performed and showed no acute abnormalities. Laboratory evaluation revealed a potassium level of 3.2, which was corrected in the Emergency Department. A physical therapy evaluation has been requested to assess fall risk and recommend safety measures for the home environment. Of note, the patient recently experienced the of her . 01/20/25 Pt resting in the chair. UA negative. She did well walking with staff in the room today. She is refusing [facility] or any thearpy. She reports she has an upcoming appointment with PCP to discuss. TEDS ordered for chronic BLLE edema. K+ 3.4 and replaced. She refuses any further assistance at this time. Pt to f/u with PCP OP. Called daughter Yana per nurse request and she did not answer and voicemail full. - Vitals & Intake/Output Vital Signs: Vital Signs Temperature 99.3 F 01/20/25 12:00 Pulse Rate 64 01/20/25 12:00 Respiratory Rate 22 01/20/25 12:00 Blood Pressure 123/59 01/20/25 12:00 O2 Sat by Pulse Oximetry 93 L 01/20/25 12:00 Intake & Output: Intake & Output 01/18/25 01/19/25 01/20/25 01/21/25 11:59 11:59 11:59 11:59 Intake Total 360 Balance 360 Weight 80.6 kg - Lab Result Diagrams: 01/20/25 05:11 01/20/25 05:11 Lab Results-Last 24 Hrs: Lab Results-Last 24 Hours 01/19/25 01/19/25 01/19/25 Range/Units 14:48 14:48 14:48 WBC 6.2 (3.98-10.04) x10^3/uL RBC 3.58 L (3.93-5.22) x10^6/uL Hgb 10.9 L (11.2-15.7) g/dL Hct 33.0 L (34.1-44.9) % MCV 92.2 (79.4-94.8) fL MCH 30.4 (25.6-32.2) pg MCHC 33.0 (32.2-35.5) g/dL RDW 12.5 (11.7-14.4) % Plt Count 255 (182-369) x10^3/uL MPV 9.7 (9.4-12.3) fL Gran % 74.6 H (34.0-71.1) % Immature Gran % (Auto) 0.2 (0.001-0.429) % Nucleat RBC Rel Count 0.0 (0.00-0.2) % Eos # (Auto) 0.06 (0.04-0.36) x10^3/uL Immature Gran # (Auto) 0.01 (0.001-0.031) x10^3u/L Absolute Lymphs (auto) 0.95 L (1.18-3.74) x10^3/uL Absolute Monos (auto) 0.51 (0.24-0.86) x10^3/uL Absolute Nucleated RBC 0.00 (0.00-0.012) x10^3u/L Lymphocytes % 15.4 L (19.3-51.7) % Monocytes % 8.3 (4.7-12.5) % Eosinophils % 1.0 (0.7-5.8) % Basophils % 0.5 (0.1-1.2) % Absolute Granulocytes 4.62 (1.56-6.13) x10^3/uL Basophils # 0.03 (0.01-0.08) x10^3/uL Sodium 139 (135-145) mmol/L Potassium 3.2 L (3.5-5.1) mmol/L Chloride 98 (98-107) mmol/L Carbon Dioxide 33 H (22-30) mmol/L Anion Gap 11.0 (5-15) MEQ/L BUN 19 H (7-17) mg/dL Creatinine 0.96 (0.52-1.04) mg/dL Estimated GFR 59.1 ML/MIN Glucose 105 (74-106) mg/dL Calcium 8.9 (8.4-10.2) mg/dL Magnesium (1.6-2.3) mg/dL Total Bilirubin 0.40 (0.2-1.3) mg/dL AST 36 (14-36) U/L ALT 26 (0-35) U/L Alkaline Phosphatase 107 (38-126) U/L Troponin I < 0.012 (0.000-0.033) ng/mL Serum Total Protein 6.1 L (6.3-8.2) g/dL Albumin 3.8 (3.5-5.0) g/dL Urine Color (Yellow) Urine Appearance (Clear) Urine pH (4.6-8.0) Ur Specific [place] (1.005-1.030) Urine Protein (Negative) Urine Glucose (UA) (Negative) mg/dL Urine Ketones (Negative) Urine Blood (Negative) Urine Nitrite (Negative) Urine Bilirubin (Negative) Urine Urobilinogen (0.2) mg/dL Ur Leukocyte Esterase (Negative) U Hyaline Cast (Auto) (0-2) /LPF Urine Microscopic RBC (0-5) /HPF Urine Microscopic WBC (0-5) /HPF Ur Epithelial Cells (None Seen) /HPF Urine Bacteria (None Seen) /HPF Urine Culture Reflexed (NO) 01/19/25 01/19/25 01/20/25 Range/Units 17:22 22:00 05:11 WBC 4.8 (3.98-10.04) x10^3/uL RBC 3.21 L (3.93-5.22) x10^6/uL Hgb 9.3 L (11.2-15.7) g/dL Hct 29.6 L (34.1-44.9) % MCV 92.2 (79.4-94.8) fL MCH 29.0 (25.6-32.2) pg MCHC 31.4 L (32.2-35.5) g/dL RDW 12.5 (11.7-14.4) % Plt Count 229 (182-369) x10^3/uL MPV 9.8 (9.4-12.3) fL Gran % (34.0-71.1) % Immature Gran % (Auto) (0.001-0.429) % Nucleat RBC Rel Count (0.00-0.2) % Eos # (Auto) (0.04-0.36) x10^3/uL Immature Gran # (Auto) (0.001-0.031) x10^3u/L Absolute Lymphs (auto) (1.18-3.74) x10^3/uL Absolute Monos (auto) (0.24-0.86) x10^3/uL Absolute Nucleated RBC (0.00-0.012) x10^3u/L Lymphocytes % (19.3-51.7) % Monocytes % (4.7-12.5) % Eosinophils % (0.7-5.8) % Basophils % (0.1-1.2) % Absolute Granulocytes (1.56-6.13) x10^3/uL Basophils # (0.01-0.08) x10^3/uL Sodium (135-145) mmol/L Potassium (3.5-5.1) mmol/L Chloride (98-107) mmol/L Carbon Dioxide (22-30) mmol/L Anion Gap (5-15) MEQ/L BUN (7-17) mg/dL Creatinine (0.52-1.04) mg/dL Estimated GFR ML/MIN Glucose (74-106) mg/dL Calcium (8.4-10.2) mg/dL Magnesium (1.6-2.3) mg/dL Total Bilirubin (0.2-1.3) mg/dL AST (14-36) U/L ALT (0-35) U/L Alkaline Phosphatase (38-126) U/L Troponin I < 0.012 < 0.012 (0.000-0.033) ng/mL Serum Total Protein (6.3-8.2) g/dL Albumin (3.5-5.0) g/dL Urine Color (Yellow) Urine Appearance (Clear) Urine pH (4.6-8.0) Ur Specific [place] (1.005-1.030) Urine Protein (Negative) Urine Glucose (UA) (Negative) mg/dL Urine Ketones (Negative) Urine Blood (Negative) Urine Nitrite (Negative) Urine Bilirubin (Negative) Urine Urobilinogen (0.2) mg/dL Ur Leukocyte Esterase (Negative) U Hyaline Cast (Auto) (0-2) /LPF Urine Microscopic RBC (0-5) /HPF Urine Microscopic WBC (0-5) /HPF Ur Epithelial Cells (None Seen) /HPF Urine Bacteria (None Seen) /HPF Urine Culture Reflexed (NO) 01/20/25 01/20/25 01/20/25 Range/Units 05:11 05:11 12:01 WBC (3.98-10.04) x10^3/uL RBC (3.93-5.22) x10^6/uL Hgb (11.2-15.7) g/dL Hct (34.1-44.9) % MCV (79.4-94.8) fL MCH (25.6-32.2) pg MCHC (32.2-35.5) g/dL RDW (11.7-14.4) % Plt Count (182-369) x10^3/uL MPV (9.4-12.3) fL Gran % (34.0-71.1) % Immature Gran % (Auto) (0.001-0.429) % Nucleat RBC Rel Count (0.00-0.2) % Eos # (Auto) (0.04-0.36) x10^3/uL Immature Gran # (Auto) (0.001-0.031) x10^3u/L Absolute Lymphs (auto) (1.18-3.74) x10^3/uL Absolute Monos (auto) (0.24-0.86) x10^3/uL Absolute Nucleated RBC (0.00-0.012) x10^3u/L Lymphocytes % (19.3-51.7) % Monocytes % (4.7-12.5) % Eosinophils % (0.7-5.8) % Basophils % (0.1-1.2) % Absolute Granulocytes (1.56-6.13) x10^3/uL Basophils # (0.01-0.08) x10^3/uL Sodium 139 (135-145) mmol/L Potassium 3.4 L (3.5-5.1) mmol/L Chloride 100 (98-107) mmol/L Carbon Dioxide 33 H (22-30) mmol/L Anion Gap 8.9 (5-15) MEQ/L BUN 17 (7-17) mg/dL Creatinine 0.93 (0.52-1.04) mg/dL Estimated GFR 61.4 ML/MIN Glucose 98 (74-106) mg/dL Calcium 8.4 (8.4-10.2) mg/dL Magnesium 2.4 H (1.6-2.3) mg/dL Total Bilirubin 0.40 (0.2-1.3) mg/dL AST 30 (14-36) U/L ALT 21 (0-35) U/L Alkaline Phosphatase 84 (38-126) U/L Troponin I (0.000-0.033) ng/mL Serum Total Protein 5.6 L (6.3-8.2) g/dL Albumin 3.2 L (3.5-5.0) g/dL Urine Color Yellow (Yellow) Urine Appearance Clear (Clear) Urine pH 6.5 (4.6-8.0) Ur Specific [place] 1.015 (1.005-1.030) Urine Protein Negative (Negative) Urine Glucose (UA) Negative (Negative) mg/dL Urine Ketones Negative (Negative) Urine Blood Negative (Negative) Urine Nitrite Negative (Negative) Urine Bilirubin Negative (Negative) Urine Urobilinogen 1.0 A (0.2) mg/dL Ur Leukocyte Esterase Trace A (Negative) U Hyaline Cast (Auto) NONE SEEN (0-2) /LPF Urine Microscopic RBC 0-2 (0-5) /HPF Urine Microscopic WBC 3-5 (0-5) /HPF Ur Epithelial Cells None Seen (None Seen) /HPF Urine Bacteria None Seen (None Seen) /HPF Urine Culture Reflexed NO (NO) - Radiology Exams Ordered Rad Exams-Entire Visit: Radiology Procedures Category Date Time Status CERVICAL SPINE WO CONTRAST [CT] Stat Exams 01/19/25 13:43 Completed HEAD WITHOUT CONTRAST [CT] Stat Exams 01/19/25 13:43 Completed - Procedures and Test Procedures and Tests throughout Hospitalization: Therapy Orders & Screens 01/20/25 11:33 PT Eval & Treat ( Order) ONCE Reason for Eval:: fall at home Diagnosis: fall Discharge Exam General Appearance: no apparent distress, alert Neurologic Exam: alert, oriented x 3, cooperative, normal mood/affect, nml cerebellar function, sensation nml, No motor deficits Eye Exam: PERRL, EOMI, eyes nml inspection Ears, Nose, Throat Exam: normal ENT inspection, pharynx normal, moist mucous membranes Neck Exam: normal inspection, non-tender, supple, full range of motion Respiratory Exam: normal breath sounds, lungs clear, No respiratory distress Cardiovascular Exam: regular rate/rhythm, normal heart sounds, edema (BLLE- TEDS) Gastrointestinal/Abdomen Exam: soft, No tenderness, No mass Pelvic Exam: deferred Rectal Exam: deferred Back Exam: normal inspection, normal range of motion, No CVA tenderness, No vertebral tenderness Extremity Exam: normal inspection, normal range of motion Skin Exam: normal color, warm, dry Final Diagnosis/Problem List - Final Discharge Diagnosis/Problem (1) Frequent falls Current Visit: Yes Status: Acute Code(s): R29.6 - REPEATED FALLS (2) Hypokalemia Current Visit: Yes Status: Acute Code(s): E87.6 - HYPOKALEMIA (3) Depressed mood Current Visit: Yes Status: Acute Code(s): R45.89 - OTHER SYMPTOMS AND SIGNS INVOLVING EMOTIONAL STATE (4) HLD (hyperlipidemia) Current Visit: No Status: Chronic Code(s): E78.5 - HYPERLIPIDEMIA, UNSPECIFIED (5) Hypertension Current Visit: No Status: Chronic Assessment & Plan: (1) Frequent falls Current Visit: Yes Status: Acute Assessment & Plan: - Staff walked with pt and she did well - Tele - CBC. CMP reviewed - replace K+ - UA negative - IVF Code(s): R29.6 - REPEATED FALLS (2) Hypokalemia Current Visit: Yes Status: Acute Assessment & Plan: - K+ 3.2- replaced in ER- recheck 2 hours after replacement completed - Tele 01/20 - K+ 3.4- replaced - F/U with PCP for repeat labs Code(s): E87.6 - HYPOKALEMIA (3) Depressed mood Current Visit: Yes Status: Acute Assessment & Plan: - Consider psych consult - Refer to [facility]- refused - Since spouse . - Denies suicidal ideation Code(s): R45.89 - OTHER SYMPTOMS AND SIGNS INVOLVING EMOTIONAL STATE (4) HLD (hyperlipidemia) Current Visit: No Status: Chronic Assessment & Plan: - Continue statin Code(s): E78.5 - HYPERLIPIDEMIA, UNSPECIFIED (5) Hypertension Current Visit: No Status: Chronic Assessment & Plan: - BP stable - continue home meds Code(s): I10 - ESSENTIAL (PRIMARY) HYPERTENSION Code(s): I10 - ESSENTIAL (PRIMARY) HYPERTENSION - Discharge Discharge Date: 01/20/25 Disposition: Home, Self-Care Condition: Stable Prescriptions: Continue Pravastatin Sodium [Pravachol] 40 mg PO HS Omeprazole 20 MG [Prilosec 20 mg] 20 mg PO DAILY Duloxetine HCl 120 mg PO DAILY Potassium Chloride Tab* [Klor Con] 10 meq PO DAILY Furosemide 40 mg [Lasix 40 MG] 1 tab PO DAILY Hydromorphone HCl in 0.9% NaCl [Hydromorphone 10 mg/50 ml-Ns] 0 mg IV UD Aspirin EC 81 mg [Ecotrin 81 mg] 81 mg PO HS Additional Instructions: IF YOU BECOME INTERESTED IN SEEING SOMEONE AT [facility], YOU CAN CALL THEM AT [phone] EXT [phone] TO DISCUSS SERVICES A REFERRAL WAS SENT TO [facility] CARE COORDINATION TEAM- THEY WILL REACH OUT TO YOU TO SEE IF THEY CAN HELP YOU MANAGE YOUR HEALTH AT HOME. IF YOU WISH TO CALL THEM, YOU CAN REACH THEM AT [phone] EXT [phone] Follow up with: CHARLES RUDD MD [Primary Care Provider, [facility]ILY [facility]]
== END 2025-01-20 16:08 | disposition home or self-care (01) ==
LOC: ED 13:35 → MED SURG 17:10
PROVIDERS: ADMIT Internal Medicine; ATTEND Internal Medicine
DX: E87.6 Hypokalemia (principal); R29.6 Repeated falls; R45.89 Other symptoms and signs involving emotional state; E78.5 Hyperlipidemia, unspecified; F32.A Depression, unspecified; I12.9 Hypertensive chronic kidney disease with stage 1 through stage 4 chronic kidney disease, or unspecified chronic kidney disease; N18.9 Chronic kidney disease, unspecified; Z79.899 Other long term (current) drug therapy; W19.XXXA Unspecified fall, initial encounter; M54.2 Cervicalgia; M54.9 Dorsalgia, unspecified
CPT/HCPCS: 36415; 70450; 72125; 80053; 81001; 83735; 84484; 85025; 85027; 93268; 97161; 99285; G0378; Q3014; J3475; A9270-GY

== ENCOUNTER 2025-08-16 17:30 | Emergency (ER) | payer MEDICARE ==
[2025-08-16 18:01] VITALS: TEMP 97.7
[2025-08-16] MEDS ORDERED: EMLA Cream 5 GM TP ONE (18:09)
--- NOTE | 2025-08-16 18:13 | ERPHSYRPT ---
- History of Present Illness Source: patient Exam Limitations: no limitations Patient Subjective Stated Complaint: Pt. states, "I got dizzy this morning and fell back and hit my head. I didn't lose conscioussness, but I still have a headache. I get dizzy sometimes and I've seen Dr. Nunez about it. He was going to check my meds but he hasn't changed anything yet." Triage Nursing Assessment: Pt. brought to ER by W/C, A&Ox3, Skin P/W/D, REsp. even unlabored, Christine Boots on bilaterally applied today by Dr. Temple, 4 cm lac on back of her head. Timing/Duration: today Quality: aching Head Pain Location: occipital Severity of Pain-Max: mild Severity of Pain-Current: mild Associated Symptoms: dizziness Hx Tetanus, Diphtheria Vaccination/Date Given: Yes (3 years ago) Hx Influenza Vaccination/Date Given: No Hx Pneumococcal Vaccination/Date Given: No Immunizations Up to Date: No - History of Present Illness Time Seen by Provider: 08/16/25 18:03 Physician History: 84-year-old female presents to the emergency room with a laceration of the back of her head after a fall patient reports she had a fall onto a hard surface she denies losing consciousness but she reports she has a headache she denies take any blood thinners she reports she hit the back of her head she reports had a similar fall about 3 weeks ago denies any shortness of breath denies any chest pain patient reports was a mechanical fall she is now in ED for further eval (MICHAEL BOYD) Allergies/Adverse Reactions: erythromycin base Adverse Reaction (Verified 08/03/25 15:49) Nausea esomeprazole [From Nexium] Adverse Reaction (Verified 08/03/25 15:49) Nausea etodolac [From Lodine] Adverse Reaction (Verified 08/03/25 15:49) Nausea oxaprozin [From Daypro] Adverse Reaction (Verified 08/03/25 15:49) Nausea oxycodone [From OxyContin] Adverse Reaction (Verified 08/03/25 15:49) Nausea rofecoxib [From Vioxx] Adverse Reaction (Verified 08/03/25 15:49) Nausea Sulfa (Sulfonamide Antibiotics) Adverse Reaction (Verified 08/03/25 15:49) Nausea Home Medications: Omeprazole 20 MG [Prilosec 20 mg] 20 mg PO DAILY 12/07/16 [History] Pravastatin Sodium [Pravachol] 40 mg PO HS 12/07/16 [History] Duloxetine HCl 120 mg PO DAILY 01/01/19 [History] Potassium Chloride Tab* [Klor Con] 20 meq PO BID 09/27/20 [History] Magnesium Amino Acid Chelate [Magnesium] 1 tab PO DAILY 03/10/25 [History] Multivitamin 1 each PO DAILY 03/10/25 [History] Acetaminophen [Tylenol] 325 mg PO Q4-6HPRN PRN 08/03/25 [History] Metolazone 2.5 mg [Zaroxolyn 2.5 MG] 2.5 mg PO 2XW 08/03/25 [History] Travel Risk - International Travel Have you traveled outside of the country in past 3 weeks: No - Emerging Infectious Disease Are you exhibiting symptoms associated with any current EIDs: No - Review of Systems Constitutional: No Fever, No Chills Eyes: No Symptoms Ears, Nose, & Throat: No Symptoms Respiratory: No Cough, No Dyspnea Cardiac: No Chest Pain, No Edema, No Syncope Abdominal/Gastrointestinal: No Abdominal Pain, No Nausea, No Vomiting, No Diarrhea Genitourinary Symptoms: No Dysuria Musculoskeletal: No Back Pain, No Neck Pain Skin: No Rash Neurological: Dizziness, Headache, No Focal Weakness, No Sensory Changes Psychological: No Symptoms Endocrine: No Symptoms All Other Systems: Reviewed and Negative - Past Medical History Pertinent Past Medical History: Yes Neurological History: Other ENT History: No Pertinent History Cardiac History: High Cholesterol, Hypertension Respiratory History: Pneumonia Endocrine Medical History: No Pertinent History Musculoskeletal History: Arthritis GI Medical History: GERD, Hemorrhoids History: Renal Disease Psycho-Social History: Anxiety, Depression Female Reproductive Disorders: No Pertinent History Other Medical History: ANEMIA. Implanted pain pump (dilaudid). dysphagia - Past Surgical History Past Surgical History: Yes Neuro Surgical History: No Pertinent History Cardiac: No Pertinent History Respiratory: No Pertinent History Gastrointestinal: No Pertinent History Genitourinary: No Pertinent History Musculoskeletal: Orthopedic Surgery, Other Female Surgical History: Hysterectomy, Section Other Surgical History: Carpal tunnel, L knee, R knee twice, stimulator in back, several back surgeries, right foot times 2, pain pump with dilaudid,colonoscopy. [id number] Significant Family History: no pertinent family hx (No family history pertaining to this admission reported.) - Social History Smoking Status: Never smoker Exposure to second hand smoke: No Drug Use: none - Social Determinants of Health Will the patient participate in the screening: Declined to provide - Physical Exam General Appearance: no apparent distress, other (Scalp laceration 3 cm to the posterior occiput) Eye Exam: PERRL/EOMI Ears, Nose, Throat Exam: normal ENT inspection, moist mucous membranes Neck Exam: normal inspection, supple, full range of motion, No meningismus Respiratory Exam: normal breath sounds, lungs clear Cardiovascular Exam: regular rate/rhythm, normal heart sounds Gastrointestinal/Abdominal Exam: soft, No tenderness, No distention Back Exam: normal inspection, normal range of motion Mental Status Exam: alert, oriented x 3, cooperative dental scheduler Exam: normal speech, PERRL, No facial droop Coordination/Gait Exam: normal cerebellar function Motor/Sensory Exam: no motor deficit, no sensory deficit Skin Exam: normal color, warm, dry, No rash SpO2: 98 - Nursing Vital Signs Nursing Vital Signs: Initial Vital Signs Temperature 97.7 F 08/16/25 17:31 Pulse Rate 95 H 08/16/25 17:31 Respiratory Rate 18 08/16/25 17:31 Blood Pressure 117/63 08/16/25 17:31 O2 Sat by Pulse Oximetry 98 08/16/25 17:31 Pain Scale Pain Intensity 7 Procedures - Laceration/Wound Repair Frontal Time of Procedure: 18:52 Wound Location: forehead Wound Length (cm): 2 Wound's Depth, Shape: linear Wound Explored: clean Irrigated: No Hibiclens Prep: No Wound Repaired With: Mariela Number of Sutures: 3 Sterile Dressing Applied?: Yes Splint Applied?: No Sling Applied?: No - Laceration/Wound Repair Frontal Progress: 08/16/25 18:52 Patient Toller procedure well (MICHAEL BOYD) Ordered Tests: Active Orders 24 hr Category Date Time Status CERVICAL SPINE WO CONTRAST [CT] Stat Exams 08/16/25 18:10 Taken HEAD WITHOUT CONTRAST [CT] Stat Exams 08/16/25 18:10 Taken Medication Summary Discontinued Medications Generic Name Dose Route Start Last Admin Trade Name Freq PRN Reason Stop Dose Admin Acetaminophen 650 mg 08/16/25 19:00 08/16/25 19:16 Acetaminophen 325 Mg Tablet PO 08/16/25 19:01 650 mg STAT STA Administration Acetaminophen Confirm 08/16/25 19:15 Acetaminophen 325 Mg Tablet Administered 08/16/25 19:16 Dose 650 mg .ROUTE .STK-MED ONE Lidocaine/Prilocaine Confirm 08/16/25 18:09 Lidocaine/Prilocaine 5 Gm 5 Gm Tube Administered 08/16/25 18:10 Dose 5 gm TP .STK-MED ONE Lidocaine/Prilocaine 2.5 gm 08/16/25 19:52 08/16/25 19:53 Lidocaine/Prilocaine 5 Gm 5 Gm Tube TP 08/16/25 19:53 2.5 gm STAT ONE Administration Lab/Rad Data: CT head and C spine read by Dr. Perez. No evidence of acute traumatic findings in CT head and cervical spine (SAMRA BATISTA) - Progress Progress Note: 08/16/25 18:45 Case was been signed out to Dr. Batista awaiting CT scans and repair of the scalp laceration (MICHAEL BOYD) 08/16/25 20:05 Imaging without evidence of acute traumatic findings. Scalp laceration was repai red by Dr. Boyd prior to shift change. Patient informed of imaging findings and is amenable to discharge home. Discussed close return precautions back to the ER and she endorses understanding 08/16/25 20:09 (SAMRA BATISTA) - Departure Critical Care Time: No - Departure Clinical Impression: Scalp laceration Qualifiers: Encounter type: initial encounter Qualified Code(s): S01.01XA - Laceration without foreign body of scalp, initial encounter Fall Qualifiers: Encounter type: initial encounter Qualified Code(s): W19.XXXA - Unspecified fall, initial encounter Condition: Stable Referrals: CHARLES NUNEZ MD [Primary Care Provider, [facility]] - Follow up/PCP as directed Instructions: Contusion (DC), Preventing falls in adults, Stitches and mariela, Wound care - ED discharge instructions
[2025-08-16] MEDS ORDERED: TYLENOL 325 MG ONE (19:15)
[2025-08-16] MEDS: TYLENOL 325 MG PO STA (19:16)
[2025-08-16] MEDS: EMLA Cream 5 GM TP ONE (19:53)
[2025-08-16 20:15] VITALS: BP 102/57; PULSE 92; RESP 22; O2SAT 96
--- NOTE | 2025-08-17 08:40 | XRAY ---
Indication: Fall. Multiple contiguous axial images obtained through the head without contrast. Comparison: August 03, 2025 New tiny left occipital scalp soft tissue swelling. Again age-appropriate global atrophy and mild periventricular degenerative microischemia bilaterally. No acute intracranial hemorrhage, abnormal extra-axial fluid collection, or mass effect. 4th ventricle is midline without hydrocephalus. Bony calvarium intact. Visualized paranasal sinuses and mastoid air cells are clear. Impression: Stable nonacute senile brain.
--- NOTE | 2025-08-17 08:44 | XRAY ---
Indication: Fall. Multiple axial images obtained through the cervical spine. Sagittal and coronal reformatted images obtained. Comparison: January 19, 2025 Osseous structures remain demineralized. Axial images again negative for acute fracture, suspicious bony lesions, or spinal canal stenosis. Stable mild/moderate C5-C7 degenerative endplate spurring and bilateral degenerative facet hypertrophy. Also stable atlantoaxial degenerative changes. Sagittal and coronal reformatted images again demonstrates lordotic straightening, positional versus paraspinal spasm. Stable multilevel degenerative disc space loss. Again no acute compression fracture, subluxation, or jumped facet. Normal appearing craniocervical junction. Visualized noncontrasted soft tissues again demonstrates scattered carotid calcifications bilaterally. Lung apices clear. Impression: 1. Again cervical lordotic straightening, positional versus paraspinal spasm. 2. Continued negative acute fracture. 3. Chronic findings including osteopenia, multilevel degenerative spondylosis, and arteriosclerotic disease
== END 2025-08-16 20:41 | disposition home or self-care (01) ==
LOC: ED 17:30
DX: S01.01XA Laceration without foreign body of scalp, initial encounter (principal); W19.XXXA Unspecified fall, initial encounter; R51.9 Headache, unspecified; I10 Essential (primary) hypertension; Z79.899 Other long term (current) drug therapy